=== PATIENT | male | born 1955 | race Caucasian/White ===

== ENCOUNTER → 2021-03-04 09:58 | Outpatient (BNVA) | payer MEDICARE, SELFPAY | PROVIDERS: Family Provider Family Medicine; PCP Family Medicine; Visit Provider Urology | DX: Z12.5 Encounter for screening for malignant neoplasm of prostate (principal); N40.1 Benign prostatic hyperplasia with lower urinary tract symptoms; R31.29 Other microscopic hematuria | CPT/HCPCS: 81003; G0103 ==

== ENCOUNTER → 2021-05-31 11:33 | Outpatient (BNVA) | payer MEDICARE, SELFPAY | PROVIDERS: Family Provider Family Medicine; PCP Family Medicine; Visit Provider Urology | DX: R31.29 Other microscopic hematuria (principal); N40.1 Benign prostatic hyperplasia with lower urinary tract symptoms | CPT/HCPCS: 81003 ==

== ENCOUNTER → 2021-08-11 10:16 | Outpatient (BNVA) | payer MEDICARE, SELFPAY | PROVIDERS: Family Provider Family Medicine; PCP Family Medicine; Visit Provider Urology | DX: N40.1 Benign prostatic hyperplasia with lower urinary tract symptoms (principal); R31.29 Other microscopic hematuria | CPT/HCPCS: 81003; 87086; 88112 ==

== ENCOUNTER 2021-08-30 09:13 | Outpatient (CLI) | payer MEDICARE, SELFPAY ==
--- NOTE | 2021-08-30 10:00 | CT_ITS ---
WS: [id number] CT ABDOMEN PELVIS TECHNIQUE: Noncontrast CT of the abdomen and contrast-enhanced CT of the abdomen and pelvis with joe nal and sagittal reformatted images. CLINICAL INFORMATION: MICROSCOPIC HEMATURIA COMPARISON: None. DLP: 3543.[address] scans at [facility] use at least one of these dose optimization techniques: automated e xposure control; mA and/or kV adjustment per patient size (includes targeted exams where dose is matc hed to clinical indication); or iterative reconstruction. FINDINGS: Normal noncontrast liver. Dystrophic calcifications with posttraumatic sequelae RIGHT hepatic lobe. L roxy bases are well aerated. Mild thickening of the LEFT adrenal gland. Adrenal glands normal. Normal renal parenchymal enhancement. No hydronephrosis. Incidental small bila teral renal cysts. Normal ureteral excretion on the delayed images. No ureteral filling defects. Normal contrast filling of the bladder. Normal corticomedullary and nephrographic phases. Normal GE junction. Fluid distended stomach. Normal pancreatic parenchymal enhancement. Normal portal vein and splenic vein. Celiac and SMA appear normal. Mild vascular calcification. Small abdominal ao rtic aneurysm measuring 3.2 x 2.9 cm in AP or transverse. Sigmoid diverticulosis. No evidence of acute diverticulitis. Enhancing slightly nodular prominent pro state measuring 3.2 x 3.4 CM. Recommend correlation PSA. Mild thickening of the seminal vesicles bila terally. Enlarged lymph nodes in the upper abdomen and along the erickson hepatis. Prominent lymph nodes along the celiac and SMA. Largest lymph nodes measure approximately 1.2 x 1.6 and 1.3 x 2.5 cm in th e erickson hepatis. These are nonspecific. A few slightly prominent retrocrural lymph nodes. Shotty mayra aortic lymph nodes. Sigmoid diverticulosis. No evidence of acute diverticulitis. No evidence of high-grade small or large bowel obstruction. Normal appendix in the RIGHT lower quadrant. Tiny fat-containing umbilical hernia . Fat-containing LEFT inguinal hernia. Prior postoperative changes pedicle screw fixation T10-T12 with chronic compression at T11 with verte broplasty changes. Interbody fusion at these levels. CT/CT abdomen pelvis wo/w [id number] IMPRESSION: 1. Normal bilateral renal parenchymal enhancement. No hydronephrosis. 2. Small bilateral incidental renal cysts. 3. Normal ureteral excretion on the delayed imaging. No suspicious filling def ects. Normal filling of the bladder. 4. Bladder appears normal. 5. Mild prostate enlargement with thickening of the seminal vesicles with slig ht nodularity. Recommend correlation PSA. 6. Enlarged lymph nodes in the upper abdomen and erickson hepatis. Largest lymph nodes are in the erickson hepatis measuring 1.6 x 1.2 cm and 1.3 x 2.5 CM. These a re nonspecific and recommend correlation with history of malignancy and [address] abdomen pelvis follow-up. 7. Slightly prominent lymph nodes along the celiac and SMA. Shotty periaortic lymph nodes. Slightly prominent retrocrural lymph nodes. Enlarged lymph node al lauren the RIGHT costophrenic angle. 8. No pelvic or inguinal lymphadenopathy. 9. Prior postoperative changes pedicle screw fixation with anterior fusion T10 -T12. 10. Mild hepatomegaly diffuse fatty infiltration liver.
[2021-08-30 10:35] LABS: Blood Urea Nitrogen 13 mg/dL (8-23)
[2021-08-30] MEDS: iohexol 350 mg/mL 100 mL Btl IV (10:48)
== END 2021-08-30 09:14 | disposition home or self-care (01) ==
PROVIDERS: PCP Family Medicine; Visit Provider Urology
DX: R31.29 Other microscopic hematuria (principal)
CPT/HCPCS: 74178; 81003; 82565; 84520

== ENCOUNTER → 2022-08-28 12:14 | Outpatient (BNVA) | payer MEDICARE, SELFPAY | PROVIDERS: PCP Family Medicine; Visit Provider Urology | DX: R31.29 Other microscopic hematuria (principal) | CPT/HCPCS: 88112 ==

== ENCOUNTER → 2022-09-12 12:51 | Outpatient (BNVA) | payer OTHER, SELFPAY | PROVIDERS: PCP Family Medicine; Visit Provider Urology | DX: N40.1 Benign prostatic hyperplasia with lower urinary tract symptoms (principal); R31.29 Other microscopic hematuria | CPT/HCPCS: 81003 ==

== ENCOUNTER → 2023-12-26 14:49 | Outpatient (BNVA) | payer OTHER, SELFPAY | PROVIDERS: PCP Family Medicine; Visit Provider Podiatrist Foot & Ankle Surgery | DX: M25.572 Pain in left ankle and joints of left foot (principal); T84.84XA Pain due to internal orthopedic prosthetic devices, implants and grafts, initial encounter; Y79.2 Prosthetic and other implants, materials and accessory orthopedic devices associated with adverse incidents | CPT/HCPCS: 73610 ==

== ENCOUNTER 2024-02-01 07:42 | Day surgery (SDC) | payer MEDICARE, SELFPAY ==
[2024-02-01] VITALS (11 sets, daily range): BP systolic 122–178; BP diastolic 94–100; PULSE 54–94; RESP 16–22; TEMP 36.7–37.5; O2SAT 94–96; BMI 26.6
--- NOTE | 2024-02-01 07:43 | ANES.PREANE2 ---
Pre-Anesthetic Assessment Height/Weight: Height 5 ft 9 in Operation Date: 02/01/24 09:15 Proposed Procedures p Deep hardware removal left ankle(Left) - Garret Yates DPM Was Beta Siva taken within 24 hours: N/A Was Clonidine taken within 24 hours: N/A Social No alcohol and No tobacco Exam alert, oriented x 3, clear to auscultation bilaterally and regular rate & rhythm Airway Submandibular: within normal limits Cervical ROM: within normal limits Mallampati: Class II Dentition: full Anesthetic Plan ASA status: 2 Anesthesia: MAC Other: No prior issues with anesthesia NPO since yesterday Hypertension, on amlodipine, lisinopril?HCTZ, metoprolol Plan for MAC with local via surgeon Medications/Allergies Home Medications Medication Instructions Recorded Confirmed Last Taken Type amlodipine 5 mg tablet 5 mg PO DAILY 02/17/21 02/01/24 01/31/24 History citalopram 40 mg tablet 20 mg PO DAILY 02/17/21 02/01/24 01/31/24 History lisinopril 20 1 tab PO DAILY 02/17/21 02/01/24 01/31/24 History mg-hydrochlorothiazide 25 mg tablet metoprolol tartrate 25 mg tablet 25 mg PO BID 02/17/21 02/01/24 02/01/24 History albuterol sulfate 90 mcg/actuation 2 puff inhalation Q6H PRN Allergy 08/11/21 02/01/24 01/31/24 History aerosol inhaler Symptoms budesonide-formoterol HFA 160 1 puff inhalation DAILY 01/31/24 02/01/24 02/01/24 History mcg-4.5 mcg/actuation aerosol inhaler (Symbicort) entecavir 1 mg tablet 1 mg PO DAILY 01/31/24 02/01/24 02/01/24 History fenofibrate nanocrystallized 145 1 mg PO DAILY 01/31/24 02/01/24 01/31/24 History mg tablet loratadine 10 mg tablet (Claritin) 10 mg PO DAILY 01/31/24 02/01/24 01/31/24 History hydrocodone 10 mg-acetaminophen 1 tab PO Q6H PRN pain 7 days #28 02/01/24 Unknown Rx 325 mg tablet tabs Allergies Allergy/AdvReac Type Severity Reaction Status Date / Time trazodone Allergy itching Verified 12/26/23 14:56 [facility] Anesthesia Medical History BPH loc w urin obs/LUTS Hx of fracture of lower leg Hx of cataract Surgical History Hx of tonsillectomy Hx of abdominal surgery History of back surgery Hx of hand surgery Family History Grandmother Diabetes Father , AT AGE 81 CAD (coronary artery disease) Mother CAD (coronary artery disease) Social History Smoking and tobacco/nicotine status: never used tobacco/nicotine Alcohol intake: never Marital status: Current occupational status: retired Data Anesthesia 02/01/24 08:14 Cardiac Studies: No Data to Display
[2024-02-01] MEDS: sodium chloride 0.9% 1,000 ML 30 ML IV (08:21)
[2024-02-01 08:48] LABS: Anion Gap 15.2 (5-19); Blood Urea Nitrogen 13 mg/dL (8-23); Calcium 8.7 mg/dL (8.5-10.5); Carbon Dioxide 24 mmol/L (22-29); Chloride 102 mmol/L (98-107); Creatinine Clr Calc Pharmacy 53.6277; Glomerular Filtration Rate 50.4 mL/min (90-130); Glucose 105 mg/dL (65-115); Osmolality Calculated 286 mOsm/kg (285-295); Potassium 3.2 mmol/L (3.5-5.1); Sodium 138 mmol/L (136-145)
[2024-02-01] MEDS: ipratropium-albuterol 3 mL Neb INHALATION (09:21)
--- NOTE | 2024-02-01 09:40 | P.HPUD_ITS ---
Surgery/Procedure H&P Update DATE OF PROCEDURE: February 01, 2024 DATE H&P PERFORMED: 12/26/23 H&P UPDATE INFORMATION: I have reviewed H&P completed within last 30 days, I have examined patient prior to procedure, No changes to prior documentation and H&P is in [facility] EMR on date indicated PREOP DIAGNOSIS: Painful hardware left ankle PLANNED PROCEDURE: Operation Date: 02/01/24 09:15 Proposed Procedures p Deep hardware removal left ankle(Left) - Garret Yates DPM
[2024-02-01] MEDS: ceFAZolin 2,000 mg SDV 2000 MG IVP (10:05)
[2024-02-01] MEDS: BUPivacaine 0.5% INJ 30 mL INJECTION (10:23)
[2024-02-01] MEDS: lidocaine 2% INJ 20 mL INJECTION (10:23)
--- NOTE | 2024-02-01 10:30 | PC.NURSE ---
hardware sent to for sterilization. Patient would like hardware back per
--- NOTE | 2024-02-01 10:37 | W.PM.BPON ---
Date of Procedure: 07/13/23 Surgeon: Garret Yates DPM Supervisory Examiner(s): RANJITH Procedure(s) performed: Deep hardware removal left ankle Findings of the procedure(s): Fragmented hardware, second most distal screw fragmented preoperatively Estimated blood loss: 2 mL Specimen(s) removed: 1 total screw removal, 1 partial screw removal Post-operative diagnosis: Painful hardware left ankle
--- NOTE | 2024-02-01 10:38 | P.OP_ITS ---
Operative Report Date of procedure: February 01, 2024 Pre-op diagnosis: Painful orthopaedic hardware T84.84XA Post-op diagnosis: Painful orthopaedic hardware T84.84XA Procedure done: Deep hardware removal left ankle. CPT code 21969 Deep hardware removal left ankle. CPT code 53212 Implants: 4-0 nylon Specimens removed/disposition: 1 screw in total removed, one partial screw moved Pathology: No pathology Surgeon: Garret Yates DPM Electrician Shop: RANJITH Estimated blood loss: 2 mL no tourniquet IV fluids: See intraoperative documentation Urine output: None Complications: None Brief History: X-ray left ankle 3 view shows left ankle mortise being congruent, very mild post traumatic arthrosis of the left tibiotalar joint, prominent screw heads x 2 at medial malleolus 1 screw is broken and. Patient requesting hardware removal I advised against only removing the 2 screws or causing pain and leaving the remaining of the plate and screws to minimize his incision and healing and recovery and maximize benefits. Patient is agreeable. I reviewed at length with the patient, the risks, potential complications, benefits, alternatives, expectations, and typical outcomes associated with the surgery. The risks and potential complications were explained in detail, including but not limited to infection, wound dehiscence or soft tissue complications, bleeding and hematoma, chronic edema, neuritis or nerve damage producing numbness or chronic pain, CRPS, failure to relieve pain or worsening pain, thick / painful / unsightly scar, limited motion / stiffness, malposition, delayed union, malunion, or nonunion, fracture, reaction to implants, anesthetic complications, venous thromboembolism, and deformity recurrence. I discussed the notion of no regrets with the patient as it pertains to complications and outcomes. The patient seemed to understand the nature of the proposed care and required convalescence. They asked appropriate questions, answered to their satisfaction. They are aware no guarantees can be made as to a satisfactory outcome and they understand there may be other possible unforeseen complications or outcomes not listed here that will be treated accordingly if they arise. There were no written or implied guarantees given to the patient. They gave informed consent to proceed. Procedure: Under mild sedation patient was brought to the operating room and remained on the gurney in supine position. A timeout was performed. Anesthesia was then administered by the anesthesia service. Local anesthesia injected by myself consisting of 1:1 mixture 1% lidocaine and 0.5 sent Marcaine plain in a local V- block fashion proximal to the planned operative site left medial ankle. Well- padded pneumatic tourniquet applied to the left high calf. The left lower extremity was scrubbed, prepped and draped utilizing normal aseptic technique. Left foot and ankle were exanguinated with an Esmarch bandage and tourniquet inflated to 250 mmHg. Attention was directed to the left medial ankle where there were 2 prominent screws palpated and tenting skin. Over the most distal screw which was palpable and prominent and tenting skin at the medial ankle, left attention was directed, and #15 blade was utilized to incise skin directly over the prominent hardware with blunt dissection carried down through subcutaneous tissue to the screw head which was directly visualized, the screw was backed out in total from bone and passed from the operative field and the incision was irrigated with copious amounts of sterile skin solution and closed with 4-0 nylon. Attention was then directed more proximally where another prominent screw was palpated and was tenting skin, directly over the screw head a second incision was performed through skin with a #15 blade with blunt dissection carried down directly to the screw head which was then removed the screw was previously fragmented on the shank this was confirmed with preop x-rays. Was able to remove the head and part of the threads and this was passed from the operative field. The incision was irrigated with saline solution and closed with 4-0 nylon. Incision sites were dressed with an OpSite and compressive wrap and tourniquet was deflated with a prompt hyperemic response noted to the distal digits of the left foot. Patient tolerated the procedure and anesthesia well and was transferred to the PACU with vital signs stable and vascular status intact. Following a period of postoperative monitoring be discharged home without home care instructions and scheduled follow-up.
--- NOTE | 2024-02-01 11:29 | ANE.PACU2 ---
Inpatient post-anesthesia follow up: Airway intact: Yes Vital signs: Temperature 98.4 F Pulse Rate 65 Respiratory Rate 18 Blood Pressure 168/94 Pulse Oximetry 94 Oxygen Delivery Me thod Room Air Oxygen Flow Rate Fraction of Inspir ed Oxygen Hydration adequate: Yes Nausea and vomiting: No Pain level: 1 Mental status: Baseline
== END 2024-02-01 11:29 | disposition home or self-care (01) ==
PROVIDERS: Student in an Organized Health Care Education/Training Program; PCP Family Medicine; Visit Provider Podiatrist Foot & Ankle Surgery
PROC: (CPT 20680; principal; 2024-02-01 09:05)
DX: T84.84XA Pain due to internal orthopedic prosthetic devices, implants and grafts, initial encounter (principal); N40.1 Benign prostatic hyperplasia with lower urinary tract symptoms; N13.8 Other obstructive and reflux uropathy
CPT/HCPCS: 20680; 36415; 80048; 94640; J0690; J2704; J3490; J7030

== ENCOUNTER → 2024-02-14 13:56 | Outpatient (BNVA) | payer MEDICARE, SELFPAY | PROVIDERS: PCP Family Medicine; Visit Provider Podiatrist Foot & Ankle Surgery | DX: Z98.890 Other specified postprocedural states (principal) | CPT/HCPCS: 99024 ==

== ENCOUNTER 2024-05-21 04:47 | Inpatient (IN) | payer MEDICARE, SELFPAY ==
[2024-05-21] VITALS (26 sets, daily range): BP systolic 147–213; BP diastolic 79–123; PULSE 61–96; RESP 15–20; TEMP 36.4–37.6; O2SAT 90–96; BMI 26.6
--- NOTE | 2024-05-21 04:51 | XRR_ITS ---
PROCEDURE INFORMATION: Exam: XR Left Hip Exam date and time: 05/21/2024 4:57 AM Age: 69 years old Clinical indication: Injury or trauma; Fall; Fracture of pelvis & hip; Left; Not specified; Neck of femur; Closed fracture; Additional info: Fall, left hip pain. With pelvis TECHNIQUE: Imaging protocol: Radiologic exam of the left hip. Views: 2 or 3 views hip with pelvis when performed. COMPARISON: CT abdomen pelvis wo/w [id number] 08/30/2021 10:33 AM FINDINGS: Bones/joints: Osteopenia. Acute nondisplaced left femoral neck fracture deformity Soft tissues: Unremarkable. XR/XR hip LT 2-3V wo/w pel* [id number] IMPRESSION: Acute nondisplaced fracture deformity of the left femoral neck
--- NOTE | 2024-05-21 04:55 | W.ED.FALL ---
HPI - Fall General: Chief Complaint: Fall Stated Complaint: R hip pain post fall Time Seen by Provider: 05/21/24 04:50 History of Present Illness: 69-year-old man who tripped and fell this evening and was brought to the emergency room by ambulance with complaint of left hip pain. No head injury. No blood thinners. No loss of consciousness. Severe pain with any movement at the hip area. Slight rotation of the leg without significant shortening. Related Data Home Medications Medication Instructions Recorded Confirmed amlodipine 5 mg tablet 5 mg PO DAILY 02/17/21 02/14/24 citalopram 40 mg tablet 20 mg PO DAILY 02/17/21 02/14/24 lisinopril 20 1 tab PO DAILY 02/17/21 02/14/24 mg-hydrochlorothiazide 25 mg tablet metoprolol tartrate 25 mg tablet 25 mg PO BID 02/17/21 02/14/24 albuterol sulfate 90 mcg/actuation 2 puff inhalation Q6H PRN Allergy 08/11/21 02/14/24 aerosol inhaler Symptoms budesonide-formoterol HFA 160 1 puff inhalation DAILY 01/31/24 02/14/24 mcg-4.5 mcg/actuation aerosol inhaler (Symbicort) entecavir 1 mg tablet 1 mg PO DAILY 01/31/24 02/14/24 fenofibrate nanocrystallized 145 1 mg PO DAILY 01/31/24 02/14/24 mg tablet loratadine 10 mg tablet (Claritin) 10 mg PO DAILY 01/31/24 02/14/24 Allergies Allergy/AdvReac Type Severity Reaction Status Date / Time trazodone Allergy itching Verified 05/21/24 04:53 Review of Systems Narrative: Constitutional symptoms: Negative except as documented in HPI. Skin symptoms: Negative except as documented in HPI. Eye symptoms: Negative except as documented in HPI. ENMT symptoms: Negative except as documented in HPI. Respiratory symptoms: Negative except as documented in HPI. Cardiovascular symptoms: Negative except as documented in HPI. Gastrointestinal symptoms: Negative except as documented in HPI. Genitourinary symptoms: Negative except as documented in HPI. Musculoskeletal symptoms: Negative except as documented in HPI. Neurologic symptoms: Negative except as documented in HPI. Psychiatric symptoms: Negative except as documented in HPI. Endocrine symptoms: Negative except as documented in HPI. PFS ED PFSH: Medical History BPH loc w urin obs/LUTS Hx of fracture of lower leg Hx of cataract Surgical History Hx of tonsillectomy Hx of abdominal surgery History of back surgery Hx of hand surgery Family History Grandmother Diabetes Father , AT AGE 81 CAD (coronary artery disease) Mother CAD (coronary artery disease) Social History Smoking and tobacco/nicotine status: never used tobacco/nicotine Alcohol intake: never Marital status: Current occupational status: retired Physical Exam Narrative: EXAM NARRATIVE: General: Alert, no acute distress. Skin: Warm, dry. Head: Normocephalic, atraumatic. Neck: Supple, trachea midline. Eye: Extraocular movements are intact. Ears, nose, mouth and throat: mucosa moist. Cardiovascular: Regular, Normal peripheral perfusion. Respiratory: Lungs are clear to auscultation, respirations are non-labored, breath sounds are equal, Symmetrical chest wall expansion. Gastrointestinal: Soft, Nontender, Non distended Musculoskeletal: Severe pain in left hip with any movement of his left leg. Some mild rotation. No shortening. Neurological: Alert and oriented, No focal neurological deficit observed. Psychiatric: Cooperative, appropriate mood & affect. Course Vital Signs: Vital signs: Vital Signs Temperature 98.4 F 05/21/24 04:48 Pulse Rate 78 05/21/24 06:04 Respiratory Rate 18 05/21/24 06:04 Blood Pressure 173/102 05/21/24 06:04 Pulse Oximetry 90 05/21/24 06:04 Oxygen Delivery Me thod Room Air 05/21/24 04:48 MDM - Fall Medical Decision Making X-ray of left hip and pelvis: Nondisplaced femoral neck fracture. This was reviewed and interpreted by myself the emergency room physician. I also reviewed the radiology report. Consultation: I spoke with Dr. Seay who agrees to admission Consultation placed to Dr. Almendarez. Assessment and plan: Hip fracture ?Presurgical workup was initiated. -I discussed the patient with the hospitalist on-call who is admitting the patient. - Discussed findings and plan with patient. Answered any questions. - All imaging was reviewed and interpreted personally by myself, the ER physician. - Evaluation and treatment of this problem were appropriate in the emergency setting Lab Data 05/21/24 04:56 05/21/24 04:56 Radiology Impressions Hip/Pelvis X-Ray 05/21/24 04:51 IMPRESSION: Acute nondisplaced fracture deformity of the left femoral neck Chest X-Ray 05/21/24 05:02 IMPRESSION: Hyperinflated lungs. No acute process Pelvis CT 05/21/24 05:02 IMPRESSION: Acute nondisplaced left femoral neck fracture deformity Laboratory Results WBC 17.51 10^3/uL (3.29-11.43) H 05/21/24 04:56 RBC 6.50 10^6/uL (3.85-5.65) H 05/21/24 04:56 Hgb 18.80 g/dL (11.27-16.99) H 05/21/24 04:56 Hct 56.9 % (37-53) H 05/21/24 04:56 MCV 87.5 fl (82-101) 05/21/24 04:56 MCH 28.9 pg (27-33) 05/21/24 04:56 MCHC 33.0 g/dL (30-55) 05/21/24 04:56 RDW 13.5 % (12.1-15.1) 05/21/24 04:56 Plt Count 313 10^3/cmm (157-399) 05/21/24 04:56 MPV 9.9 fL (7.4-10.4) 05/21/24 04:56 Neut % (Auto) 86.7 % 05/21/24 04:56 Lymph % (Auto) 6.2 % 05/21/24 04:56 [place] % (Auto) 5.0 % 05/21/24 04:56 Eos % (Auto) 0.6 % 05/21/24 04:56 Baso % (Auto) 0.6 % 05/21/24 04:56 Neut # (Auto) 15.18 10^3/uL (1.8-7.7) H 05/21/24 04:56 Lymph # (Auto) 1.1 10^3/uL (0.8-4.8) 05/21/24 04:56 [place] # (Auto) 0.9 10^3/uL (0.2-0.9) 05/21/24 04:56 Eos # (Auto) 0.1 10^3/uL (0.0-0.8) 05/21/24 04:56 Baso # (Auto) 0.1 10^3/uL (0.0-0.1) 05/21/24 04:56 Nucleated RBC % (auto) 0 % 05/21/24 04:56 Nucleated RBCs # 0.0 /100WBC 05/21/24 04:56 PT 12.10 SECONDS (12.1-14.9) 05/21/24 04:56 INR 0.84 (0.8-1.2) 05/21/24 04:56 APTT 27.5 SECONDS (23.9-36.7) 05/21/24 04:56 Sodium 137 mmol/L (136-145) 05/21/24 04:56 Potassium 3.3 mmol/L (3.5-5.1) L 05/21/24 04:56 Chloride 101 mmol/L (98-107) 05/21/24 04:56 Carbon Dioxide 23 mmol/L (22-29) 05/21/24 04:56 Anion Gap 16.3 (5-19) 05/21/24 04:56 BUN 15 mg/dL (8-23) 05/21/24 04:56 Creatinine 1.5 mg/dL (0.7-1.2) H 05/21/24 04:56 GFR Calculation 46.4 mL/min (90-130) L 05/21/24 04:56 Glucose 129 mg/dL (65-115) H 05/21/24 04:56 Calculated Osmolality 287 mOsm/kg (285-295) 05/21/24 04:56 Calcium 9.9 mg/dL (8.5-10.5) 05/21/24 04:56 Total Bilirubin 0.3 mg/dL (0.15-1.2) 05/21/24 04:56 AST 19 U/L (0-40) 05/21/24 04:56 ALT 16 U/L (0-41) 05/21/24 04:56 Alkaline Phosphatase 75 U/L (40-130) 05/21/24 04:56 Total Protein 6.9 g/dL (6.6-8.7) 05/21/24 04:56 Albumin 3.2 g/dL (3.5-5.2) L 05/21/24 04:56 Globulin 3.7 g/dL (1.3-4.6) 05/21/24 04:56 All radiology interpretation(s) finalized by discharge Discharge Plan Discharge Patient Disposition: Admitted As Inpatient Admit Provider: Kendra Seay Clinical Impression: Closed hip fracture Condition: Stable Coding Level of Care Code ED Barrel Endshaker Adjuster for Thu Cadena
[2024-05-21] MEDS: HYDROmorphone 1 mg/mL INJ 1 mL IVP (05:01)
--- NOTE | 2024-05-21 05:02 | XRR_ITS ---
PROCEDURE INFORMATION: Exam: XR Chest Exam date and time: 05/21/2024 5:06 AM Age: 69 years old Clinical indication: Injury or trauma; Fall; Blunt trauma (contusions or hematomas); Additional info: Surgical workup TECHNIQUE: Imaging protocol: Radiologic exam of the chest. Views: 1 view. COMPARISON: CR XR chest 2V* [id number] 12/11/2017 10:40 AM FINDINGS: Lungs: Hyperinflated lungs. No infiltrate Pleural spaces: Unremarkable. No pleural effusion. No pneumothorax. Heart/Mediastinum: Unremarkable. No cardiomegaly. Bones/joints: Unremarkable. XR/XR chest 1V portable [id number] IMPRESSION: Hyperinflated lungs. No acute process
--- NOTE | 2024-05-21 05:02 | CTR_ITS ---
PROCEDURE INFORMATION: Exam: CT Pelvis Without Contrast, Skeleton Exam date and time: 05/21/2024 5:14 AM Age: 69 years old Clinical indication: Injury or trauma; Additional info: Traumatic pelvic pain TECHNIQUE: Imaging protocol: Computed tomography of the pelvis without contrast. Exam focused on the skeleton. Radiation optimization: All CT scans at this facility use at least one of these dose optimization techniques: automated exposure control; mA and/or kV adjustment per patient size (includes targeted exams where dose is matched to clinical indication); or iterative reconstruction. COMPARISON: CT abdomen pelvis wo/w [id number] 08/30/2021 10:33 AM RADIATION DOSE METRICS: Total DLP (mGy-cm): 413.63 FINDINGS: Bones/joints: Healed left inferior pubic ramus fracture deformity. Acute nondisplaced left femoral neck fracture deformity. Soft tissues: Unremarkable. CT/CT pelvis wo con [id number] IMPRESSION: Acute nondisplaced left femoral neck fracture deformity
--- NOTE | 2024-05-21 05:34 | ECG_ITS ---
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 Measurements Intervals [place] Rate: 77 P: 72 WV: 210 QRS: -63 QRSD: 93 T: 73 QT: 405 QTc: 460 Interpretive Statements SINUS RHYTHM WITH FIRST DEGREE AV BLOCK INCOMPLETE RIGHT BUNDLE BRANCH BLOCK [90+ ms QRS DURATION, TERMINAL R IN V1/V2, 40+ ms S IN I/aVL/V4/V5/V6] LEFT ANTERIOR FASCICULAR BLOCK [QRS AXIS <= -45, QR IN I, RS IN II] SEPTAL MYOCARDIAL INFARCTION , PROBABLY OLD [40+ ms Q WAVE IN V1/V2] Compared to ECG 02/07/2017 01:48:51 First degree AV block now present Incomplete right bundle-branch block now present Left anterior fascicular block now present Myocardial infarct finding now present T-wave abnormality no longer present Electronically Signed On 05-24-2024 23:14:45 WATER PROOFER by Kristofer Forrest M.D. [email or web address]
[2024-05-21 05:40] LABS: Basophils # 0.1 10^3/uL (0.0-0.1); Basophils % 0.6 %; Eosinophils # 0.1 10^3/uL (0.0-0.8); Eosinophils % 0.6 %; Hematocrit 56.9 % (37-53); Lymphocytes # 1.1 10^3/uL (0.8-4.8); Lymphocytes % 6.2 %; Mean Corpuscular Hemoglobin 28.9 pg (27-33); Mean Corpuscular Volume 87.5 fl (82-101); Mean Platelet Volume 9.9 fL (7.4-10.4); Monocytes # 0.9 10^3/uL (0.2-0.9); Neutrophils # 15.18 10^3/uL (1.8-7.7); Neutrophils % 86.7 %; Nucleated Red Blood Cells % 0 %; Platelet Count 313 10^3/cmm (157-399); Red Cell Distribution Width 13.5 % (12.1-15.1); White Blood Count 17.51 10^3/uL (3.29-11.43)
[2024-05-21 05:47] LABS: INR 0.84 (0.8-1.2); Partial Thromboplastin Time 27.5 SECONDS (23.9-36.7)
[2024-05-21 05:51] LABS: Alanine Aminotransferase 16 U/L (0-41); Albumin Level 3.2 g/dL (3.5-5.2); Alkaline Phosphatase 75 U/L (40-130); Anion Gap 16.3 (5-19); Aspartate Amino Transferase 19 U/L (0-40); Blood Urea Nitrogen 15 mg/dL (8-23); Calcium 9.9 mg/dL (8.5-10.5); Carbon Dioxide 23 mmol/L (22-29); Chloride 101 mmol/L (98-107); Creatinine Clr Calc Pharmacy 49.3574; Globulin 3.7 g/dL (1.3-4.6); Glomerular Filtration Rate 46.4 mL/min (90-130); Glucose 129 mg/dL (65-115); Osmolality Calculated 287 mOsm/kg (285-295); Potassium 3.3 mmol/L (3.5-5.1); Sodium 137 mmol/L (136-145); Total Bilirubin 0.3 mg/dL (0.15-1.2); Total Protein 6.9 g/dL (6.6-8.7)
--- NOTE | 2024-05-21 07:42 | P.CONIM_ITS ---
<Statement entered by Prasanth Almendarez DO - 05/21/24 15:08> Reviewed and agree with PAs assessment and plan. Patient was seen and examined by myself in the preoperative holding area. Consent was reviewed and signed with the patient. At this point time he is a 69-year-old gentleman who lives at home by himself and ambulates without a walker at baseline and no previous hip pain. He had a mechanical fall that fell onto his left hip from the emergency department found to have a displaced left hip femoral neck fracture. Initial imaging possible nondisplaced however on CT scan patient has noticeable anterior translation and displacement as well as a high Powells angle and displacement bolus equating to a feeling better benefit from a left hip hemiarthroplasty versus a closed reduction and cannulated screw fixation we talked about this in detail we talked about the ins and outs procedure the risk benefits complication alternatives surgery. Risk of surge include not limited to make a better make it worse injury to nerves vessels or tendons, infection, leg length discrepancies, instability, periprosthetic fracture. Understanding risks with surgery patient lacks proceed with surgical intervention all questions have been answered at this time I feel patient will benefit from left hip hemiarthroplasty for earlier mobilization as well as pain control. Patient understands agrees current plan. Questions answered. We will take him back to the OR this afternoon. All questions answered. Prasanth Almendarez DO Orthopedic surgery Documented by User: JESSA Oglesby 05/21/24 08:32 Providers/Reason For Consult 2 Consulting Physician/Specialty*: Dr. Erickson DO/orthopedic surgeon Reason for Consult*: Left hip fracture Requesting Physician: Dr. Kimberly MD Attending Physician: Kendra Seay MD History of Present Illness History of Present Illness Brianne Holm is a 69 year old male that was brought into the emergency department for left hip pain. Patient had a fall at home where he tripped over a dog bowl. He denies any loss of consciousness. After fall patient said he had left hip pain and was unable to weight-bear or move his left leg due to pain. Patient had no hip pain before fall and was having no other symptoms before his fall. Patient lives home alone and was able to ambulate without any assistive device before fall. Patient denies being on any blood thinners. Review of Systems 2 Const: Denies: fever(s) or chills Card: Denies: chest pain or palpitations Resp: Denies: dyspnea, productive cough or non-productive cough GI: Denies: abdominal pain, nausea or vomiting : Denies: dysuria Musc: Reports: extremity pain (Left hip), joint pain (Left hip) and limited range of motion (Left hip) Skin/Breast: Denies: rash Medications/Allergies Home Medications Medication Instructions Recorded Confirmed Last Taken Type amlodipine 5 mg tablet 5 mg PO QPM 02/17/21 05/21/24 05/20/24 History citalopram 40 mg tablet 40 mg PO DAILY 02/17/21 05/21/24 05/20/24 History metoprolol tartrate 25 mg tablet 25 mg PO BID 02/17/21 05/21/24 05/20/24 History albuterol sulfate 90 mcg/actuation 2 puff inhalation Q6H PRN Allergy 08/11/21 05/21/24 01/31/24 History aerosol inhaler Symptoms budesonide-formoterol HFA 160 1 puff inhalation DAILY 01/31/24 05/21/24 02/01/24 History mcg-4.5 mcg/actuation aerosol inhaler (Symbicort) entecavir 1 mg tablet 1 mg PO DAILY 01/31/24 05/21/24 05/20/24 History fenofibrate nanocrystallized 145 1 mg PO DAILY 01/31/24 05/21/24 05/20/24 History mg tablet loratadine 10 mg tablet (Claritin) 10 mg PO DAILY 01/31/24 05/21/24 05/20/24 History budesonide 160 mcg-glycopyr 9 2 inh inhalation BID 05/21/24 05/21/24 05/20/24 History mcg-formot 4.8 mcg/actuation HFA inhaler (Breztri Aerosphere) chlorthalidone 25 mg tablet 12.5 mg PO DAILY 05/21/24 05/21/24 Unknown History hydrochlorothiazide 12.5 mg tablet 12.5 mg PO DAILY 05/21/24 05/21/24 05/20/24 History lisinopril 40 mg tablet 40 mg PO DAILY 05/21/24 05/21/24 05/20/24 History Allergies Allergy/AdvReac Type Severity Reaction Status Date / Time trazodone Allergy itching Verified 05/21/24 04:53 PFSH Acute 2 PFSH: Medical History Hepatitis B Hematuria Depression History of heart attack HTN (hypertension) Elevated cholesterol BPH loc w urin obs/LUTS Hx of fracture of lower leg Hx of cataract Surgical History Hx of tonsillectomy Hx of abdominal surgery History of back surgery Hx of hand surgery Family History Grandmother Diabetes Father , AT AGE 81 CAD (coronary artery disease) Mother CAD (coronary artery disease) Social History Smoking and tobacco/nicotine status: current every day tobacco/nicotine user Alcohol intake: former Substance/Drug Use: former Marital status: Current occupational status: retired Vitals/I&O/Wt Last Vital Signs Temp 97.9 F 05/21/24 06:30 Pulse 78 05/21/24 06:30 Resp 15 05/21/24 06:30 BP 171/99 05/21/24 06:30 Pulse Ox 94 05/21/24 06:30 O2 Del Method Room Air 05/21/24 06:30 05/20/24 05/21/24 05/21/24 22:59 06:59 14:59 Intake Total 0 / 0 Balance 0 / 0 Weight last 48 hrs Weight 180 lb Physical Exam 2 Const: COMMON NORMALS: no acute distress and alert Resp: COMMON NORMALS: normal respiratory effort and No retractions Cardio: COMMON NORMALS: Peripheral pulses 2+ throughout PERIPHERAL PULSES: Peripheral pulses 2+ throughout Extremity: NARRATIVE EXTREMITY EXAM: (Left) lower extremity-leg is not short ened and not externally rotated. Positive logroll test. Tenderness to palpation right hip. compartments are soft and compressible. Patient can Wiggle toes. Toes are warm and well- perfused. Pedal pulse 2+. Secondary assessment of other extremities. Upper extremities-no visible injuries, abrasions. Full range of motion in shoulders, elbows and wrist. no tenderness to palpation of shoulders or wrist. (Right) lower extremity-no visible injur y or trauma seen. Full range of motion in hip. Negative logroll test. Patient able to perform straight leg raise and can dorsiflex plantarflex foot. Pedal pulse 2+ and patient can wiggle toes. Neuro: SENSORIUM/ORIENTATION: Yes alert Skin: GENERAL SKIN EXAM: dry skin Data 05/21/24 04:56 05/21/24 04:56 Xray Ortho: Radiologist's impression: Patient: Brianne Holm Unit #: [id number] : 1955 Age/Sex: 69 / M ADM Date: 05/21/24 Loc: ER Room/Bed: Attending Dr: Ordering Provider/Ordering MD: Chyna Harris MD Date of Service: 05/21/24 Procedure(s): XR hip LT 2-3V wo/w pel* [id number] Accession Number(s): [id number] Report Number: [id number] PROCEDURE INFORMATION: Exam: XR Left Hip Exam date and time: 05/21/2024 4:57 AM Age: 69 years old Clinical indication: Injury or trauma; Fall; Fracture of pelvis & hip; Left; Not specified; Neck of femur; Closed fracture; Additional info: Fall, left hip pain. With pelvis TECHNIQUE: Imaging protocol: Radiologic exam of the left hip. Views: 2 or 3 views hip with pelvis when performed. COMPARISON: CT abdomen pelvis wo/w [id number] 08/30/2021 10:33 AM FINDINGS: Bones/joints: Osteopenia. Acute nondisplaced left femoral neck fracture deformity Soft tissues: Unremarkable. XR/XR hip LT 2-3V wo/w pel* [id number] IMPRESSION: Acute nondisplaced fracture deformity of the left femoral neck Dictated By: Eda Sumner DO A&P Assessment and plan (1) Closed hip fracture: Plan Plan: -Imaging and Labs reviewed -Hospitalist on board for medical management. -VTE prophylaxis -Nonweightbearing on left leg -Pain control -N.p.o. -Surgery later today for a left hip CRPP versus left hip hemiarthroplasty. Coding Level of Care Code Acute Code for Chg Fwd Diagnoses Closed hip fracture S72.009A Time Spent (min) 45 Documented by User: Prasanth Almendarez DO 05/21/24 15:11 Medications/Allergies Home Medications Medication Instructions Recorded Confirmed Last Taken Type amlodipine 5 mg tablet 5 mg PO QPM 02/17/21 05/21/24 05/20/24 History citalopram 40 mg tablet 40 mg PO DAILY 02/17/21 05/21/24 05/20/24 History metoprolol tartrate 25 mg tablet 25 mg PO BID 02/17/21 05/21/24 05/20/24 History albuterol sulfate 90 mcg/actuation 2 puff inhalation Q6H PRN Allergy 08/11/21 05/21/24 01/31/24 History aerosol inhaler Symptoms budesonide-formoterol HFA 160 1 puff inhalation DAILY 01/31/24 05/21/24 02/01/24 History mcg-4.5 mcg/actuation aerosol inhaler (Symbicort) entecavir 1 mg tablet 1 mg PO DAILY 01/31/24 05/21/24 05/20/24 History fenofibrate nanocrystallized 145 1 mg PO DAILY 01/31/24 05/21/24 05/20/24 History mg tablet loratadine 10 mg tablet (Claritin) 10 mg PO DAILY 01/31/24 05/21/24 05/20/24 History budesonide 160 mcg-glycopyr 9 2 inh inhalation BID 05/21/24 05/21/24 05/20/24 History mcg-formot 4.8 mcg/actuation HFA inhaler (Breztri Aerosphere) chlorthalidone 25 mg tablet 12.5 mg PO DAILY 05/21/24 05/21/24 Unknown History hydrochlorothiazide 12.5 mg tablet 12.5 mg PO DAILY 05/21/24 05/21/24 05/20/24 History lisinopril 40 mg tablet 40 mg PO DAILY 05/21/24 05/21/24 05/20/24 History Allergies Allergy/AdvReac Type Severity Reaction Status Date / Time trazodone Allergy itching Verified 05/21/24 04:53 PFSH Acute 2 PFSH: Medical History Hepatitis B Hematuria Depression History of heart attack HTN (hypertension) Elevated cholesterol BPH loc w urin obs/LUTS Hx of fracture of lower leg Hx of cataract Surgical History Hx of tonsillectomy Hx of abdominal surgery History of back surgery Hx of hand surgery Family History Grandmother Diabetes Father , AT AGE 81 CAD (coronary artery disease) Mother CAD (coronary artery disease) Social History Smoking and tobacco/nicotine status: current every day tobacco/nicotine user Alcohol intake: former Substance/Drug Use: former Marital status: Current occupational status: retired Physical Exam 2 Extremity: NARRATIVE EXTREMITY EXAM: (Left) lower extremity-leg is not short ened and not externally rotated. Positive logroll test. Tenderness to palpation left hip. compartments are soft and compressible. Unable to perform [place] secondary to pain, patient can Wiggle toes. Toes are warm and well-perfused. Pedal pulse 2+. Secondary assessment of other extremities. Upper extremities-no visible injuries, abrasions. Full range of motion in shoulders, elbows and wrist. no tenderness to palpation of shoulders or wrist. (Right) lower extremity-no visible injur y or trauma seen. Full range of motion in hip. Negative logroll test. Patient able to perform straight leg raise and can dorsiflex plantarflex foot. Pedal pulse 2+ and patient can wiggle toes. Data 05/21/24 04:56 05/21/24 04:[address]: Radiologist's impression: Ordering Provider/Ordering MD: Chyna Harris MD Date of Service: 05/21/24 Procedure(s): CT pelvis con [id number] Accession Number(s): [id number] Report Number: [id number] PROCEDURE INFORMATION: Exam: CT Pelvis Without Contrast, Skeleton Exam date and time: 05/21/2024 5:14 AM Age: 69 years old Clinical indication: Injury or trauma; Additional info: Traumatic pelvic pain TECHNIQUE: Imaging protocol: Computed tomography of the pelvis without contrast. Exam focused on the skeleton. Radiation optimization: All CT scans at this facility use at least one of these dose optimization techniques: automated exposure control; mA and/or kV adjustment per patient size (includes targeted exams where dose is matched to clinical indication); or iterative reconstruction. COMPARISON: CT abdomen pelvis wo/w [id number] 08/30/2021 10:33 AM RADIATION DOSE METRICS: Total DLP (mGy-cm): 413.63 FINDINGS: Bones/joints: Healed left inferior pubic ramus fracture deformity. Acute nondisplaced left femoral neck fracture deformity. Soft tissues: Unremarkable. CT/CT pelvis wo con [id number] IMPRESSION: Acute nondisplaced left femoral neck fracture deformity A&P Assessment and plan (1) Closed hip fracture: Plan Plan: -Imaging and Labs reviewed -Hospitalist on board for medical management. -VTE prophylaxis -Nonweightbearing on left leg -Pain control -N.p.o. -Surgery later today for a left hip CRPP versus left hip hemiarthroplasty. Orthopedic attending addendum: Plan to proceed to the OR for left hip hemiarthroplasty today. All questions answered at this time. Please refer to addendum at the top of the note for detailed discussion. Coding Level of Care Code Acute Code for Chg Fwd Diagnoses Closed hip fracture S72.009A Time Spent (min) 45
--- NOTE | 2024-05-21 08:45 | P.HP_ITS ---
Providers/Chief Complaint 2 Admitting Physician: Kendra Seay MD Chief Complaint: R hip pain post fall History of Present Illness Pleasant 69-year-old gentleman recovering alcoholic and with history of substance use disorder, has been sober for 6 years, on treatment for hepatitis B over the last year following with infectious disease doctor in [place], with history of COPD, current smoker, came into ER due to left hip pain after tripping over his dog and falling. In ER he was found to have a nondisplaced left femoral neck fracture. He denies any other recent acute illness. He denies history of heart attack or stroke, history of diabetes, sleep apnea. He states at baseline he has been able to walk on flat ground unrestricted. He does use inhalers for COPD but has not been needing any oxygen. Review of Systems 2 Const: Denies: fever(s), chills, body aches or malaise ENMT: Denies: throat pain Card: Denies: chest pain, edema, pre-syncope or dyspnea on exertion Resp: Denies: dyspnea, productive cough, change in phlegm color or hemoptysis GI: Denies: abdominal pain, nausea, vomiting, diarrhea, constipation, hematochezia or melena : Denies: flank pain, difficulty urinating, urinary frequency or hematuria Musc: Reports: extremity pain; Denies: back pain, joint swelling or joint redness Skin/Breast: Denies: rash or new lesions Neuro: Denies: headache(s) Endo: Denies: polyuria or polydipsia Medications/Allergies Home Medications Medication Instructions Recorded Confirmed Last Taken Type amlodipine 5 mg tablet 5 mg PO QPM 02/17/21 05/21/24 05/20/24 History citalopram 40 mg tablet 40 mg PO DAILY 02/17/21 05/21/24 05/20/24 History metoprolol tartrate 25 mg tablet 25 mg PO BID 02/17/21 05/21/24 05/20/24 History albuterol sulfate 90 mcg/actuation 2 puff inhalation Q6H PRN Allergy 08/11/21 05/21/24 01/31/24 History aerosol inhaler Symptoms budesonide-formoterol HFA 160 1 puff inhalation DAILY 01/31/24 05/21/24 02/01/24 History mcg-4.5 mcg/actuation aerosol inhaler (Symbicort) entecavir 1 mg tablet 1 mg PO DAILY 01/31/24 05/21/24 05/20/24 History fenofibrate nanocrystallized 145 1 mg PO DAILY 01/31/24 05/21/24 05/20/24 History mg tablet loratadine 10 mg tablet (Claritin) 10 mg PO DAILY 01/31/24 05/21/24 05/20/24 History budesonide 160 mcg-glycopyr 9 2 inh inhalation BID 05/21/24 05/21/24 05/20/24 History mcg-formot 4.8 mcg/actuation HFA inhaler (Breztri Aerosphere) chlorthalidone 25 mg tablet 12.5 mg PO DAILY 05/21/24 05/21/24 Unknown History hydrochlorothiazide 12.5 mg tablet 12.5 mg PO DAILY 05/21/24 05/21/24 05/20/24 History lisinopril 40 mg tablet 40 mg PO DAILY 05/21/24 05/21/24 05/20/24 History Allergies Allergy/AdvReac Type Severity Reaction Status Date / Time trazodone Allergy itching Verified 05/21/24 04:53 PFSH Acute 2 PFSH: Medical History Hepatitis B Hematuria Depression History of heart attack HTN (hypertension) Elevated cholesterol BPH loc w urin obs/LUTS Hx of fracture of lower leg Hx of cataract Surgical History Hx of tonsillectomy Hx of abdominal surgery History of back surgery Hx of hand surgery Family History Grandmother Diabetes Father , AT AGE 81 CAD (coronary artery disease) Mother CAD (coronary artery disease) Social History Smoking and tobacco/nicotine status: current every day tobacco/nicotine user Alcohol intake: former Substance/Drug Use: former Marital status: Current occupational status: retired Vitals/I&O/Wt Last Vital Signs Temp 98.1 F 05/21/24 07:52 Pulse 73 05/21/24 07:52 Resp 17 05/21/24 07:52 BP 185/96 05/21/24 07:52 Pulse Ox 95 05/21/24 07:52 O2 Del Method Room Air 05/21/24 07:52 05/20/24 05/21/24 05/21/24 22:59 06:59 14:59 Intake Total 0 / 0 Output Total 300 / 300 Balance 0 / 0 -300 / -300 Weight last 48 hrs Weight 81.221 kg Weight 81.647 kg Physical Exam 2 Const: COMMON NORMALS: patient oriented x3 and alert GENERAL APPEARANCE: c ooperative ORIENTATION/CONSCIOUSNESS: Yes awake OTHER: Mildly slurred speech. Dry mouth. HENMT: COMMON NORMALS: oropharynx normal Neck/C-Spine: COMMON NORMALS: no JVD Resp: COMMON NORMALS: normal respiratory effort and clear to auscultation bilaterally AUSCULTATION: clear to auscultation bilaterally Cardio: COMMON NORMALS: no JVD, regular rhythm, S1 normal heart sound present, S2 normal heart sound present and No murmurs present (Cardio) RHYTHM: regular rhythm HEART SOUNDS: S1 normal heart sound present and S2 normal heart sound present GI: COMMON NORMALS: Normal to inspection, nondistended, normoactive bowel sounds present, Soft to palpation and non-tender PALPATION: Yes Soft to palpation Extremity: COMMON NORMALS: no joint enlargement and no pedal edema Neuro: COMMON NORMALS: patient oriented x3 and moves all extremities S ENSORIUM/ORIENTATION: Yes alert Skin: COMMON NORMALS: no rashes or lesions noted GENERAL SKIN EXAM: no rashes or lesions noted Data 05/21/24 04:56 05/21/24 04:56 A&P Assessment and plan (1) Fracture of femoral neck, left, closed: Came in after a fall after tripping on his dog. Experiencing left hip pain, found to have nondisplaced left femoral neck fracture. Denies other recent illness. Reviewed vitals, CBC, INR, PTT, CMP, pelvis CT, chest x-ray, hip x- ray, EKG, on my interpretation complete RBBB, LAFB,Q wave is reported in V1, but there is no Q wave, possible Q wave in V2. Pending official read. He has not had any chest pain or pressure. Denies history of [place] or stroke. Does have underlying COPD, not normally on oxygen. Denies history of EWELINA. Reports that has been able to maintain unimpeded activity, ambulation on flat surface without having to stop to catch her breath, able to go up and down stairs without issue prior to the fall. Does appear to have CKD as well, creatinine 1.5, similar to prior 1.4 back in January. History of EtOH use disorder, substance use disorder, hepatitis B has been on treatment over the last year, has been in remission over the last 6 years, denies any relapse. He is a chronic smoker but states has been trying to cut down. Discussed with him resolution with surgery, anesthesia secondary to his underlying medical conditions. He wants to pursue repair of left hip fracture to allow him to mobilize and resume his prior lifestyle. He is made n.p.o. by orthopedics as per their prior discussion, tentative plans for surgical intervention this afternoon. Blood pressure with some elevation up to a 185/96. Will hold off lisinopril, HCTZ anticipation of surgical intervention. Monitor blood pressures. Pain control. Acetaminophen, hydromorphone as needed. Would avoid NSAIDs if possible with suspected CKD. Minimally slurred speech, although gives appropriate answers, history. However, his mouth is also dry. Assess UDS, EtOH level. SCD for now for VTE prophylaxis pending surgical transfer, subsequently anticoagulation as per orthopedics. (2) Leukocytosis: Leukocytosis of 17.5, with without symptomatic features of any infection going on. Will obtain a UA. Reviewed chest x-ray. He denies any systemic or other symptoms of infection. Possibly stress related secondary to fall, hip fracture. Plan Recovering alcoholic and with history of substance use disorder, has been sober for 6 years, On treatment for hepatitis B over the last year following with infectious disease doctor in [place], COPD: Not currently in exacerbation. Uses inhalers at home. Will provide inhaled budesonide, DuoNebs. Current smoker: Encouraged cessation. He has been trying to cut down. Discussed with him nicotine replacement with nicotine patch, nicotine lozenges. Attestations 2 Medical Necessity Statement*: Place in observation for additional assessment and management of left hip nondisplaced fracture. and High MDM includes amount and/or complexity of data reviewed/ordered [ previous or external records, resulted lab(s)/test(s), ordered lab(s)/test(s), independent test interpretation and other healthcare professional discussion] and described risk of complication, morbidity or mortality of management as documented Diagnoses Fracture of femoral neck, left, closed S72.002A Leukocytosis D72.829
[2024-05-21] MEDS: ketorolac 30 mg/mL INJ IVP (09:07)
[2024-05-21 09:46] LABS: Alcohol Level < 10 mg/dL (0-10)
[2024-05-21 10:35] LABS: Bilirubin Urine Negative (Negative); Blood Urine 1+ (Negative); Glucose Urine UA Trace (Normal); Ketones Urine Negative (Negative); Leukocyte Esterase Urine Negative (Negative); Nitrate Urine Negative (Negative); Protein Urine 4+ (Negative); Specific Gravity, Urine 1.021 (1.005-1.030); Urine Appearance Clear (CLEAR); Urine Color Yellow (Yellow); Urobilinogen Urine 0.2 mg/dL (Negative); pH Urine 6.5 (5-7)
[2024-05-21] MEDS: HYDROmorphone 1 mg/mL INJ 1 mL 0.2 MG IVP (10:37)
[2024-05-21] MEDS: nicotine 21 mg Patch 1 PATCH TRANSDERMA (10:40)
[2024-05-21 10:42] LABS: Amphetamines Screen Urine Negative (Negative); Barbiturates Screen Urine Negative (Negative); Benzodiazepines Screen Urine Negative (Negative); Cocaine Screen Urine Negative (Negative); Opiate Screen Urine Positive (Negative); PCP Screen Urine Negative (Negative); THC Screen Urine Positive (Negative)
[2024-05-21 10:44] LABS: Add Urine Microscopic? YES; Bacteria Urine None Seen /hpf; Hyaline Casts Urine 6.17 /lpf; RBC Urine 0-2 /hpf (0-2); Squamous Epithelial Cell Urine 0-5 /hpf (0-5); WBC Urine 0-5 /hpf (0-5)
[2024-05-21 11:09] LABS: SARS Covid-2 Antigen negative (Negative)
[2024-05-21] MEDS: albuterol 2.5 mg/3 mL Neb INHALATION (14:01)
[2024-05-21] MEDS: acetaminophen 1,000 MG/100 ML PIGGYBACK 400 MG IV (14:14)
--- NOTE | 2024-05-21 14:15 | ANES.PREANE2 ---
Pre-Anesthetic Assessment Height/Weight: Height 5 ft 9 in Weight 179 lb 1 oz Temp Pulse Resp BP Pulse Ox O2 Del Method 99.7 F H 78 17 187/98 96 Room Air 05/21/24 13:53 05/21/24 13:59 05/21/24 13:59 05/21/24 13:53 05/21/24 13:59 05/21/24 13:59 Preop Diagnosis: Left hip femoral neck fracture Operation Date: 05/21/24 14:50 Proposed Procedures p Hemiarthroplasty Hip(Left) - Prasanth Hardee, DO Was Beta Siva taken within 24 hours: Yes Was Clonidine taken within 24 hours: N/A Social No alcohol and No tobacco Exam alert, oriented x 3, clear to auscultation bilaterally and regular rate & rhythm Anesthetic Plan ASA status: 3 Anesthesia: General Other: No prior issues with anesthesia NPO since History of hypertension on amlodipine lisinopril and HCTZ, preop BP 187/98 Labs reviewed, leukocytosis noted. Hemoglobin 18.8. K+ 3.3, creatinine 1.5 EKG showing sinus rhythm with first-degree AV block and RBBB Plan for general anesthesia Medications/Allergies Home Medications Medication Instructions Recorded Confirmed Last Taken Type amlodipine 5 mg tablet 5 mg PO QPM 02/17/21 05/21/24 05/20/24 History citalopram 40 mg tablet 40 mg PO DAILY 02/17/21 05/21/24 05/20/24 History metoprolol tartrate 25 mg tablet 25 mg PO BID 02/17/21 05/21/24 05/20/24 History albuterol sulfate 90 mcg/actuation 2 puff inhalation Q6H PRN Allergy 08/11/21 05/21/24 01/31/24 History aerosol inhaler Symptoms budesonide-formoterol HFA 160 1 puff inhalation DAILY 01/31/24 05/21/24 02/01/24 History mcg-4.5 mcg/actuation aerosol inhaler (Symbicort) entecavir 1 mg tablet 1 mg PO DAILY 01/31/24 05/21/24 05/20/24 History fenofibrate nanocrystallized 145 1 mg PO DAILY 01/31/24 05/21/24 05/20/24 History mg tablet loratadine 10 mg tablet (Claritin) 10 mg PO DAILY 10/07/2105/21/24 05/20/24 History budesonide 160 mcg-glycopyr 9 2 inh inhalation BID 05/21/24 05/21/24 05/20/24 History mcg-formot 4.8 mcg/actuation HFA inhaler (Breztri Aerosphere) chlorthalidone 25 mg tablet 12.5 mg PO DAILY 05/21/24 05/21/24 Unknown History hydrochlorothiazide 12.5 mg tablet 12.5 mg PO DAILY 05/21/24 05/21/24 05/20/24 History lisinopril 40 mg tablet 40 mg PO DAILY 05/21/24 05/21/24 05/20/24 History Allergies Allergy/AdvReac Type Severity Reaction Status Date / Time trazodone Allergy itching Verified 05/21/24 04:53 Current Medications Generic Name Dose Route Start Last Admin Trade Name Freq PRN Reason Stop Dose Admin Albuterol/Ipratropium 3 ml 05/21/24 14:00 05/21/24 13:35 Ipratropium-Albuterol 3 Ml Neb INHALATION Not Given Q6H.RESP TEZ Hydromorphone HCl 0.2 mg 05/21/24 09:56 05/21/24 10:37 Hydromorphone 1 Mg/Ml Inj 1 Ml IVP 0.2 mg Q4H PRN Administration SEVERE PAIN Nicotine 1 patch 05/21/24 09:00 05/21/24 10:40 Nicotine 21 Mg Patch TRANSDERMA 1 patch DAILY TEZ Administration PFSH Anesthesia Medical History Hepatitis B Hematuria Depression History of heart attack HTN (hypertension) Elevated cholesterol BPH loc w urin obs/LUTS Hx of fracture of lower leg Hx of cataract Surgical History Hx of tonsillectomy Hx of abdominal surgery History of back surgery Hx of hand surgery Family History Grandmother Diabetes Father , AT AGE 81 CAD (coronary artery disease) Mother CAD (coronary artery disease) Social History Smoking and tobacco/nicotine status: current every day tobacco/nicotine user Alcohol intake: former Substance/Drug Use: former Marital status: Current occupational status: retired Data Anesthesia 05/21/24 04:56 05/21/24 04:56 Short CBC 05/21/24 Range/Units 04:56 WBC 17.51 H (3.29-11.43) 10^3/uL Hgb 18.80 H (11.27-16.99) g/dL Hct 56.9 H (37-53) % MCV 87.5 (82-101) fl Plt Count 313 (157-399) 10^3/cmm Neut % (Auto) 86.7 % Neut # (Auto) 15.18 H (1.8-7.7) 10^3/uL BMP 05/21/24 04:56 Sodium 137 Potassium 3.3 L Chloride 101 Carbon Dioxide 23 BUN 15 Creatinine 1.5 H Glucose 129 H Calcium 9.9 Liver Function 05/21/24 Range/Units 04:56 Total Bilirubin 0.3 (0.15-1.2) mg/dL AST 19 (0-40) U/L ALT 16 (0-41) U/L Alkaline Phosphatase 75 (40-130) U/L Albumin 3.2 L (3.5-5.2) g/dL Urine 05/21/24 Range/Units 10:05 Urine Color Yellow (Yellow) Urine Appearance Clear (CLEAR) Urine pH 6.5 (5-7) Ur Specific [place] 1.021 (1.005-1.030) Urine Protein 4+ A (Negative) Urine Glucose (UA) Trace H (Normal) Urine Ketones Negative (Negative) Urine Nitrate Negative (Negative) Urine Bilirubin Negative (Negative) Ur Leukocyte Esterase Negative (Negative) Urine RBC 0-2 (0-2) /hpf Urine WBC 0-5 (0-5) /hpf Blood Bank 05/21/24 10:28 Blood Type O Positive Rho(D) Type Rh positive Antibody Screen Negative COVID Results 05/21/24 10:27 Coronavirus 229E (PCR) Cancelled SARS-CoV-2 (PCR) Cancelled SARS-CoV-2 Ag (Rapid) negative Coags 05/21/24 04:56 PT 12.10 INR 0.84 APTT 27.5 Cardiac Studies: No Data to Display
--- NOTE | 2024-05-21 15:06 | W.PM.OPSUD ---
Surgery/Procedure H&P Update DATE OF PROCEDURE: May 21, 2024 DATE H&P PERFORMED: 05/21/24 H&P UPDATE INFORMATION: I have reviewed H&P completed within last 30 days, I have examined patient prior to procedure and No changes to prior documentation PREOP DIAGNOSIS: Left hip femoral neck fracture PRIMARY INDICATION FOR PROCEDURE: Left hip displaced femoral neck fracture PLANNED PROCEDURE: Operation Date: 05/21/24 14:50 Proposed Procedures p Hemiarthroplasty Hip(Left) - Prasanth Almendarez DO
[2024-05-21] MEDS: sodium chloride 0.9% 1,000 ML 30 ML IV (15:19)
[2024-05-21] MEDS: ceFAZolin 2,000 mg SDV 2000 MG IVP (15:36)
[2024-05-21] MEDS: tranexamic acid 1,000 mg/10mL SDV 1000 MG IV (16:04)
[2024-05-21] MEDS: VANCOMYCIN ADD-Vantage 1,000 MG VIAL 1000 MG XX (16:21)
--- NOTE | 2024-05-21 17:45 | XRR_ITS ---
PROCEDURE INFORMATION: Exam: XR Left Hip Exam date and time: 05/21/2024 6:04 PM Age: 69 years old Clinical indication: Device placement; Other: Mauro arthroplasty; Additional info: Post op left hip mauro TECHNIQUE: Imaging protocol: Radiologic exam of the left hip. Views: 2 or 3 views hip with pelvis when performed. COMPARISON: CT pelvis wo con [id number] 05/21/2024 5:14 AM FINDINGS: Bones/joints: Status post total left hip arthroplasty in anatomic alignment. No evidence of acute fracture or dislocation. Moderate degenerative changes of the right femoroacetabular joint. Soft tissues: Postoperative changes including subcutaneous gas and skin prasad. XR/XR hip LT 2-3V wo/w pel* [id number] IMPRESSION: Status post total left hip arthroplasty in anatomic alignment.
--- NOTE | 2024-05-21 17:46 | W.PM.BPON ---
Date of Procedure: 05/21/2024 Surgeon: Prasanth Almendarez DO Certified Juvenile Probation Officer(s): Sadiq Almnedarez PA-C Procedure(s) performed: Left hip hemiarthroplasty (cemented/posterior approach) Findings of the procedure(s): Patient was found to have comminuted fracture and displaced left femoral neck fracture underwent procedure as planned without issues or complications. Estimated blood loss: 300 mL Specimen(s) removed: Femoral head removed Post-operative diagnosis: Left hip displaced femoral neck fracture
--- NOTE | 2024-05-21 17:48 | P.OP_ITS ---
Operative Report Date of procedure: May 21, 2024 Surgeon: Prasanth Almendarez DO Procedure: Preoperative diagnosis: Left hip displaced femoral neck fracture post-op diagnosis: Same Procedure done: Left?hip?hemiarthroplasty, (cemented/posterior approach) Implants: Benita Accolade C 132 degree femoral stem size 4 Bipolar head 51 mm Femoral head +4 mm offset 8mm distal cement spacer Surgeon: Prasanth Almendarez DO Estimated blood loss: 300 mL IV fluids: See anesthesia record Urine output: See anesthesia record Complications: None Findings: See operative report Condition: stable Disposition: floor Brief History: Patient was seen in the emergency department and subsequently admitted after fall.? Patient sustained a left hip displaced femoral neck fracture.? Patient was subsequently admitted by the hospitalist team for medical management and preoperative optimization and the orthopedic surgery team was consulted for evaluation and treatment recommendations.? At that point time discussed with patient? treatment options.? We talked about nonoperative versus operative intervention talked about the risk benefits complication alternatives to surgical nonsurgical treatment options.? Risks of surgery were discussed and patient understands and agrees to proceed with procedure.? At this point time would recommend a left?hip?hemiarthroplasty.? This will offer patient pain control as well as early weightbearing.? Patient was medically optimized by the primary team she was then taken to the OR.? Patient understands risk benefits complication alternatives with surgical nonsurgical treatment options.? At this point time elects to proceed with left?hip?hemiarthroplasty.? All questions answered.? Patient understands agrees with current plan.? All questions answered. Procedure: Patient seen evaluated the preoperative holding area.? Consent was reviewed and signed with patient.? ?Pt was seen evaluated by the anesthesia department.? Once cleared for surgery patient patient was taken back to the operative suite.? Patient was then transported onto the OR table.? pt underwent anesthesia per the anesthesia department.? Once appropriately anesthetized patient was then positioned in lateral decubitus position with the left?hip?up.? Patient was placed on a pegboard appropriately secured to the bed all bony prominences well- padded.? Next the left lower extremity was then prepped and draped in sterile orthopedic fashion.? Final timeout performed.? Patient received appropriate preoperative antibiotics. A standard posterolateral approach was then made over the lateral aspect of the? hip.? Sharp scalpel incision was made through skin and subcutaneous tissue I then utilized a Carmona elevator to mobilize over the fascia.? The fascia was then split longitudinally with electrocautery.? Next a bursectomy was then performed.? I then placed Hohmann underneath the abductors.? The?hip?was placed under tension with internal rotation.? I then utilizing electrocautery performed a full-thickness release of the short external rotators and capsule in 1 full thick sleeve for lateral repair.? This was then taken down to the lesser trochanter.? Immediately on capsulotomy hematoma was noticed and displaced femoral neck fracture appreciated.? I then placed a Hohmann above and below the neck.? Patient had a comminuted fracture with steep vertical Powells angle this went right to the level of the lesser. As a result I utilized an oscillating saw to freshen the cut this was right at the level of the lesser there was no fracture propagation into the lesser. once this was performed this access was removed with rongeur.? ?I then utilized a corkscrew to remove the head.? This was then subsequently sized and measured to be a 51 mm head size.? I then thoroughly irrigated the acetabulum.? A Hohmann was placed anteriorly and thorough inspection of the acetabulum no significant arthritic changes were noted.? I then utilized a rongeur and Bovie to remove the pulvinar.? Once this was performed I then subsequently took my trial 51 mm head and trialed this which had excellent fit and appropriate suction fit noted.? This was then subsequently removed. Once this was performed I irrigated the socket and then turned my attention towards the femoral preparation.? I utilized Bovie and rongeur to remove the soft tissue off of the saddle.? Once this was done a box osteotome followed by a canal finder and? lateralizing rattail rasp was used to appropriately lateralized in the canal. It was noticed at this point originally was planning on performing press-fit fixation however patient had considerable thin cortices along the calcar and soft bone quality as a result I elected to cement. Next I then subsequently broached to a size 4 Accolade C. Unfortunately given the thin cortices and still the mobility at this point and unable to trial up to a 5, is unable to trial the size for but we had enough room measuring the tip of the stem to center of the neck length centering onto the greater trochanter was fairly even and so plan was to cement at the level of the lesser where the cut was and then subsequently trial up since we had up to a + 12mm neck length and this appeared to be able to have room for trialing. This point in time we then subsequently proceeded with standard cementation technique.? Cement was mixed on the back table the final implant was opened and appropriately measurement on distal cement plug to accommodate the cement mantle and femoral stem.? This was set and impacted in place to appropriate depth.? Next I utilized the cement brush thoroughly irrigated the canal and then dry the canal tampon.? Once cement was appropriately mixed and ready for cementation informed anesthesia and they optimize patient's oxygenation cement was then impacted using cement gun and then was subsequently pressurized.?? The femoral stem size 4 was then impacted in place with appropriate anteversion and held into place and all excess cement was removed and allowed to cure once cured I then trialed a up to a +4 mm size head/neck length which at that point there was which had excellent leg lengths as well as appropriate shuck, and excellent stability in all planes of motion with no evidence of instability.? At this point this was determined to being my final femoral head size.? This was subsequently dislocated the trial head was then removed the final implant of bipolar head 51 mm with a +4mm offset was then opened.? The trunnion was then cleaned and dried and this was impacted in place with excellent fixation.? I then reduced the?hip?this had excellent stability and appropriate leg lengths.? The wound bed was then thoroughly irrigated.? I then utilizing #5 Ethibond suture performed my repair of the capsule and short external rotators through bone tunnels.? ?Wound bed was then thoroughly irrigated,1 gram vanco powder placed in wound bed.? IT band was closed with strata fix suture and the deep subcutaneous and subcutaneous layers were closed with 0 strata fix and 2-0 strata fix.? Skin was then closed reapproximated with prasad.? Silverlon dressing applied.? Patient placed in abduction pillow posterior?hip?precautions.? pt? was awakened from anesthesia and taken to PACU in stable condition Disposition: Patient taken to PACU in stable condition will receive appropriate discharge directions as well as pain medication DVT prophylaxis postopera tively.? Patient? will return to the floor postoperatively.? Patient will be weightbearing as tolerated to the left lower extremity.? Posterior?hip?precautions. Abduction pillow in place.? DVT prophylaxis, pain medication, postoperative antibiotics and TXA.? Patient will work with PT/OT and discharge services for discharge planning.? Patient understands agrees with current plan.? All questions answered.? ?patient will? see me in the office in 2 weeks.
--- NOTE | 2024-05-21 18:04 | PM.PACU ---
PACU note Narrative: Patient is a 69-year-old male just underwent a left hip hemiarthroplasty. Pt transferred to PACU in stable condition. Dressing is dry. pt is awake and alert. pt can wiggle toes. Distal pulses are palpable toes are warm and well-perfused. Cap refill is normal and under 2 seconds. Sensation to foot is intact. Pain is controlled. Exam: somnolent, arousable Disposition: back to floor
--- NOTE | 2024-05-21 18:16 | PC.NURSE ---
Shift summary: Day started off rough for pt. pain control was an issue. New pain meds ordered and admin. Some improvement. Pt stated he has a high tolerance, he is now yars clean and sober. No skin issues noted. Pt was on room air. Hibicleanse bathing completed prior to surgery. Pt left floor around 1330 for hip surgery. He remains off the floor at this time.
[2024-05-21] MEDS: fentaNYL 50 mcg/mL INJ 2mL IVP (18:20)
[2024-05-21] MEDS: labetalol 5 mg/mL SDV 20mL 10 MG IVP (18:30)
--- NOTE | 2024-05-21 18:44 | ANE.PACU2 ---
Inpatient post-anesthesia follow up: Airway intact: Yes Vital signs: Temperature 97.7 F Pulse Rate 108 Respiratory Rate 15 Blood Pressure 150/89 Pulse Oximetry 94 Oxygen Delivery Me thod Room Air Oxygen Flow Rate 2 Fraction of Inspir ed Oxygen Hydration adequate: Yes Nausea and vomiting: No Pain level: 1 Mental status: Baseline
[2024-05-21] MEDS: HYDROmorphone 1 mg/mL INJ 1 mL 0.5 MG IVP ×2 (19:23→23:05)
[2024-05-21] MEDS: ipratropium-albuterol 3 mL Neb INHALATION (19:39)
[2024-05-21] MEDS: budesonide 0.5 mg/2 mL Neb 0.25 MG INHALATION (19:39)
[2024-05-21] MEDS: sennosides-docusate Tablet 2 TAB PO (20:11)
[2024-05-21] MEDS: calcium carb-vit d 600mg/400unit 1 Tablet 1 EACH PO (20:11)
[2024-05-21] MEDS: chlorhexidine gluconate 0.12% Btl 473 mL 30 ML MUCOUS MEM (20:11)
[2024-05-21] MEDS: mupirocin oint 22 gm 1 APPLIC NASAL (20:11)
[2024-05-21] MEDS: iron polysaccharide complex 150 mg Capsule PO (20:12)
[2024-05-21] MEDS: ceFAZolin 2,000 MG in sodium chloride 0.9% (plus) 50 ML 100 MG IV (22:57)
[2024-05-21] MEDS: tranexamic acid 1,000 MG/100 ML PREMIX 600 MG IV (23:31)
[2024-05-22] VITALS (19 sets, daily range): BP systolic 150–192; BP diastolic 56–98; PULSE 67–108; RESP 14–22; TEMP 36.4–37.2; O2SAT 90–94
[2024-05-22] MEDS: oxyCODONE 5 mg IR Tab/Cap PO ×5 (01:14→20:21)
[2024-05-22] MEDS: ipratropium-albuterol 3 mL Neb INHALATION ×4 (02:05→20:07)
[2024-05-22 06:01] LABS: Basophils # 0.1 10^3/uL (0.0-0.1); Basophils % 0.3 %; Hematocrit 46.4 % (37-53); Lymphocytes % 6.6 %; Mean Corpuscular HGB Conc 31.9 g/dL (30-55); Mean Corpuscular Hemoglobin 28.8 pg (27-33); Mean Corpuscular Volume 90.4 fl (82-101); Mean Platelet Volume 9.9 fL (7.4-10.4); Monocytes # 1.1 10^3/uL (0.2-0.9); Monocytes % 7.2 %; Neutrophils % 85.3 %; Nucleated Red Blood Cells % 0 %; Platelet Count 254 10^3/cmm (157-399); Red Blood Count 5.13 10^6/uL (3.85-5.65); Red Cell Distribution Width 13.8 % (12.1-15.1)
[2024-05-22 06:21] LABS: Anion Gap 15.4 (5-19); Blood Urea Nitrogen 18 mg/dL (8-23); Calcium 8.1 mg/dL (8.5-10.5); Carbon Dioxide 22 mmol/L (22-29); Chloride 102 mmol/L (98-107); Creatinine Clr Calc Pharmacy 36.8928; Glomerular Filtration Rate 33.3 mL/min (90-130); Glucose 125 mg/dL (65-115); Osmolality Calculated 285 mOsm/kg (285-295); Potassium 3.4 mmol/L (3.5-5.1); Sodium 136 mmol/L (136-145)
[2024-05-22] MEDS: ceFAZolin 2,000 MG in sodium chloride 0.9% (plus) 50 ML 100 MG IV ×2 (06:24→14:31)
[2024-05-22] MEDS: budesonide 0.5 mg/2 mL Neb 0.25 MG INHALATION ×2 (08:52→20:07)
[2024-05-22] MEDS: sennosides-docusate Tablet 2 TAB PO ×2 (08:59→17:01)
[2024-05-22] MEDS: enoxaparin 30 mg/0.3 mL Syringe SUBCUT (08:59)
[2024-05-22] MEDS: calcium carb-vit d 600mg/400unit 1 Tablet 1 EACH PO ×2 (08:59→17:01)
[2024-05-22] MEDS: nicotine 21 mg Patch 1 PATCH TRANSDERMA (08:59)
[2024-05-22] MEDS: multivitamin therapeutic Tablet 1 TAB PO (08:59)
[2024-05-22] MEDS: iron polysaccharide complex 150 mg Capsule PO ×2 (08:59→17:01)
[2024-05-22] MEDS: mupirocin oint 22 gm 1 APPLIC NASAL ×2 (09:01→17:09)
[2024-05-22] MEDS: chlorhexidine gluconate 0.12% Btl 473 mL 30 ML MUCOUS MEM ×4 (09:02→21:20)
--- NOTE | 2024-05-22 09:16 | US_ITS ---
WS: [id number] RENAL ULTRASOUND HISTORY: erwin COMPARISON: None available. TECHNIQUE: 2-D and color Doppler imaging of the kidney submitted. Right kidney: 11.2 cm x 5.1 cm x 6.5 cm. Cortex: 1.2 cm Normal echogenicity with no hydronephrosis or mass. Left kidney: 11.1 cm x 5.8 cm x 5.8 cm. Cortex: 1.1 cm Normal echogenicity with no hydronephrosis or mass. Aorta: Normal. Urinary Bladder: Normal distention. US/US renal BI* [id number] IMPRESSION: Normal renal ultrasound.
[2024-05-22 09:54] LABS: Creatine Phosphokinase 616 U/L (39-308)
[2024-05-22] MEDS: HYDROmorphone 1 mg/mL INJ 1 mL 0.5 MG IVP ×2 (09:59→17:50)
[2024-05-22] MEDS: sodium chloride 0.9% 1,000 ML 75 ML IV ×2 (09:59→22:24)
--- NOTE | 2024-05-22 12:32 | P.PN_ITS ---
Subjective 2 Subjective: Patient seen examined his afternoon has gotten up with therapy pain controlled medications. Likely needing rehab facility at discharge. Vitals/I&O/Wt Last Vital Signs Temp 97.7 F 05/22/24 11:53 Pulse 108 H 05/22/24 11:53 Resp 15 05/22/24 11:53 BP 150/89 05/22/24 11:53 Pulse Ox 94 05/22/24 11:53 O2 Del Method Room Air 05/22/24 11:53 O2 Flow Rate 2 05/21/24 18:31 05/21/24 05/22/24 05/22/24 22:59 06:59 14:59 Intake Total 760 / 860 510 / 1370 1006 / 1006 Output Total 1500 / 1900 600 / 2500 100 / 100 Balance -740 / -1040 -90 / -1130 906 / 906 Weight last 48 hrs Weight 178 lb 9.6 oz Weight 179 lb 1 oz Weight 180 lb Physical Exam 2 Narrative: Left hip examination: Dressing on in place, clean dry and intact. No evidence of saturation. Patient has normal postoperative swelling and tenderness to palpation to the left hip. Compartments are soft compressible,'s calf soft and nontender. Sensations intact to light touch distally. Distal pulses are palpable. Patient is able to wiggle toes as well as plantarflex and dorsiflex ankle. Urinary Catheter Management: Brock: Cath Placed During This Visit: yes, but has since been removed by the nurse Reason for Continuing Indwelling Catheter: Perioperative Use in Selected Surgeries Urinary Catheter Date of Insertion: 05/21/24 Urinary Catheter Time of Insertion: 15:45 Date Urinary Catheter Removed: 05/22/24 Time Urinary Catheter Discontinued: 05:00 Data 05/22/24 05:41 05/22/24 05:41 Xray Ortho: Radiologist's impression: Ordering Provider/Ordering MD: Prasanth Almendarez Date of Service: 05/21/24 Procedure(s): XR hip LT 2-3V wo/w pel* [id number] Accession Number(s): [id number] Report Number: [id number] PROCEDURE INFORMATION: Exam: XR Left Hip Exam date and time: 05/21/2024 6:04 PM Age: 69 years old Clinical indication: Device placement; Other: Mauro arthroplasty; Additional info: Post op left hip mauro TECHNIQUE: Imaging protocol: Radiologic exam of the left hip. Views: 2 or 3 views hip with pelvis when performed. COMPARISON: CT pelvis wo con [id number] 05/21/2024 5:14 AM FINDINGS: Bones/joints: Status post total left hip arthroplasty in anatomic alignment. No evidence of acute fracture or dislocation. Moderate degenerative changes of the right femoroacetabular joint. Soft tissues: Postoperative changes including subcutaneous gas and skin prasad. XR/XR hip LT 2-3V wo/w pel* [id number] IMPRESSION: Status post total left hip arthroplasty in anatomic alignment. A&P Assessment and plan (1) Fracture of femoral neck, left, closed: Plan X-rays reviewed?stable left hip hemiarthroplasty A.m. labs reviewed PT/OT Posterior hip precautions Pain control Weight-bear as tolerated left lower extremity Internal medicine on board as primary DVT prophylaxis Resume diet Orthopedics will continue to follow Attestations 2 Medical Necessity Statement*: Ongoing care status post left hip hemiarthroplasty Coding Level of Care Code Acute Code for Chg Fwd Diagnoses Fracture of femoral neck, left, closed S72.002A Time Spent (min) 15
[2024-05-22] MEDS: chlorthalidone 25 mg Tablet 12.5 MG PO (13:12)
[2024-05-22] MEDS: tamsulosin 0.4 mg Capsule PO (13:17)
[2024-05-22] MEDS: TRAMadol 50 mg Tablet PO ×2 (14:30→22:21)
[2024-05-22 15:09] LABS: Bilirubin Urine Negative (Negative); Blood Urine 2+ (Negative); Glucose Urine UA Trace (Normal); Ketones Urine Negative (Negative); Leukocyte Esterase Urine Negative (Negative); Nitrate Urine Negative (Negative); Protein Urine 4+ (Negative); Specific Gravity, Urine 1.021 (1.005-1.030); Urine Appearance Clear (CLEAR); Urine Color Yellow (Yellow); Urobilinogen Urine 0.2 mg/dL (Negative)
[2024-05-22 15:14] LABS: Add Urine Microscopic? YES; Bacteria Urine None Seen /hpf; Hyaline Casts Urine 8.26 /lpf; Squamous Epithelial Cell Urine 0-5 /hpf (0-5); WBC Urine 21-50 /hpf (0-5)
[2024-05-22 15:32] LABS: Add Urine Culture? Yes; Fine Granular Casts Urine 0-4 /lpf; UA Slide Review UA Slide Review Perf
--- NOTE | 2024-05-22 15:48 | P.PN_ITS ---
Subjective 2 Subjective: Patient was seen this morning, he tells me that he has a history of alcoholism and drug use in the past but has been sober for the last 7 years, he is worried about the addictive nature of his pain medications while he is here in the hospital but he is in a lot of pain, he also tells me that he is not getting his medications here such as his blood pressure medications and his citalopram, discussed resuming his home medications, he also uses Entecavir for history of hepatitis B, discussed we do not carry that medication here in the hospital he will have to have his family members bring it in, we discussed his YOANNA, will have to monitor his kidney function closely continue start IV fluids, renal ultrasound Vitals/I&O/Wt Last Vital Signs Temp 98.8 F 05/22/24 15:28 Pulse 96 05/22/24 15:28 Resp 20 H 05/22/24 15:36 BP 170/87 05/22/24 15:28 Pulse Ox 91 05/22/24 15:28 O2 Del Method Room Air 05/22/24 15:28 O2 Flow Rate 2 05/21/24 18:31 05/22/24 05/22/24 05/22/24 06:59 14:59 22:59 Intake Total 510 / 1370 1006 / 1006 50 / 1056 Output Total 600 / 2500 100 / 100 Balance -90 / -1130 906 / 906 50 / 956 Weight last 48 hrs Weight 81.012 kg Weight 81.221 kg Weight 81.647 kg Physical Exam 2 Const: COMMON NORMALS: no acute distress and patient oriented x3 Resp: COMMON NORMALS: normal respiratory effort, No retractions, No use of accessory muscles and clear to auscultation bilaterally AUSCULTATION: clear to auscultation bilaterally Cardio: COMMON NORMALS: regular rate, regular rhythm, S1 normal heart sound present and S2 normal heart sound present RATE: regular rate RHYTHM: r egular rhythm HEART SOUNDS: S1 normal heart sound present and S2 normal heart sound present GI: COMMON NORMALS: Normal to inspection, nondistended, normoactive bowel sounds present and non-tender Extremity: COMMON NORMALS: no pedal edema Neuro: COMMON NORMALS: patient oriented x3 Psych: COMMON NORMALS: mental status grossly normal Urinary Catheter Management: Brock: Cath Placed During This Visit: yes, but has since been removed by the nurse Reason for Continuing Indwelling Catheter: Perioperative Use in Selected Surgeries Urinary Catheter Date of Insertion: 05/21/24 Urinary Catheter Time of Insertion: 15:45 Date Urinary Catheter Removed: 05/22/24 Time Urinary Catheter Discontinued: 05:00 Data 05/22/24 05:41 05/22/24 05:41 A&P Assessment and plan (1) Fracture of femoral neck, left, closed: - Status post surgical intervention -Will monitor -PT OT -Pain control, anticoagulation as per orthopedic team (2) Leukocytosis: - Concerns for possible UTI, Rocephin (3) Acute kidney injury: - Creatinine up to 2.0 -Suspected CKD -Does have elevated CPK over 600 -Gentle IV hydration -Renal ultrasound Plan History of alcoholism, substance abuse, has been sober for 7 years On treatment for hepatitis B, Entecavir, advised him to bring medication from home COPD not in exacerbation Current smoker Attestations 2 Medical Necessity Statement*: Patient requires hospitalization for leukocytosis, YOANNA, UTI Diagnoses Fracture of femoral neck, left, closed S72.002A Leukocytosis D72.829 Acute kidney injury N17.9
[2024-05-22] MEDS: metoprolol tartrate 25 mg Tablet PO (17:01)
[2024-05-22] MEDS: amlodipine 5 mg Tablet PO (17:01)
[2024-05-22] MEDS: citalopram 20 mg Tablet 40 MG PO (17:09)
[2024-05-22] MEDS: ENTECAVIR 1 MG 1 EACH PO (18:12)
[2024-05-22] MEDS: cefTRIAXone 1,000 mg SDV 1000 MG IVP (21:19)
[2024-05-23] VITALS (17 sets, daily range): BP systolic 134–168; BP diastolic 72–98; PULSE 64–91; RESP 14–18; TEMP 36.5–37.2; O2SAT 88–94
[2024-05-23] MEDS: oxyCODONE 5 mg IR Tab/Cap PO ×3 (00:35→14:04)
[2024-05-23 03:45] LABS: Basophils # 0.1 10^3/uL (0.0-0.1); Basophils % 0.6 %; Eosinophils # 0.2 10^3/uL (0.0-0.8); Eosinophils % 1.6 %; Lymphocytes # 1.6 10^3/uL (0.8-4.8); Lymphocytes % 11.6 %; Mean Corpuscular HGB Conc 32.8 g/dL (30-55); Mean Corpuscular Volume 88.3 fl (82-101); Mean Platelet Volume 10.1 fL (7.4-10.4); Monocytes # 1.2 10^3/uL (0.2-0.9); Monocytes % 8.5 %; Nucleated Red Blood Cells % 0 %; Platelet Count 223 10^3/cmm (157-399); Red Blood Count 5.21 10^6/uL (3.85-5.65); White Blood Count 13.65 10^3/uL (3.29-11.43)
[2024-05-23 04:05] LABS: Anion Gap 16.8 (5-19); Blood Urea Nitrogen 18 mg/dL (8-23); Calcium 8.7 mg/dL (8.5-10.5); Carbon Dioxide 23 mmol/L (22-29); Chloride 102 mmol/L (98-107); Creatinine Clr Calc Pharmacy 43.4033; Glomerular Filtration Rate 40.2 mL/min (90-130); Glucose 104 mg/dL (65-115); Osmolality Calculated 290 mOsm/kg (285-295); Sodium 139 mmol/L (136-145)
[2024-05-23 04:11] LABS: Potassium 2.8 mmol/L (3.5-5.1)
[2024-05-23] MEDS: HYDROmorphone 1 mg/mL INJ 1 mL IVP ×2 (04:19→23:16)
[2024-05-23] MEDS: ondansetron 2 mg/ML SDV 2 mL 4 MG IVP ×2 (04:27→18:06)
[2024-05-23 04:29] LABS: Magnesium 1.7 mg/dL (1.7-2.3); Phosphorus 2.8 mg/dL (2.5-4.5)
[2024-05-23] MEDS: ipratropium-albuterol 3 mL Neb INHALATION ×4 (04:48→20:07)
[2024-05-23] MEDS: potassium chloride ER 20 mEq Tablet PO (05:14)
[2024-05-23] MEDS: magnesium sulfate premix 2 GM/50 ML PIGGYBACK IV (05:44)
[2024-05-23] MEDS: lidocaine 1% 5 ML in potassium chloride premix 100 ML 26.25 ML IV (07:24)
[2024-05-23] MEDS: budesonide 0.5 mg/2 mL Neb 0.25 MG INHALATION ×2 (08:59→20:07)
[2024-05-23] MEDS: lisinopril 20 mg Tablet 40 MG PO (09:01)
[2024-05-23] MEDS: sennosides-docusate Tablet 2 TAB PO (09:02)
[2024-05-23] MEDS: iron polysaccharide complex 150 mg Capsule PO (09:02)
[2024-05-23] MEDS: tamsulosin 0.4 mg Capsule PO (09:02)
[2024-05-23] MEDS: calcium carb-vit d 600mg/400unit 1 Tablet 1 EACH PO (09:02)
[2024-05-23] MEDS: multivitamin therapeutic Tablet 1 TAB PO (09:02)
[2024-05-23] MEDS: nicotine 21 mg Patch 1 PATCH TRANSDERMA (09:03)
[2024-05-23] MEDS: mupirocin oint 22 gm 1 APPLIC NASAL ×2 (09:03→17:38)
[2024-05-23] MEDS: metoprolol tartrate 25 mg Tablet PO (09:03)
[2024-05-23] MEDS: chlorthalidone 25 mg Tablet 12.5 MG PO (09:03)
[2024-05-23] MEDS: enoxaparin 30 mg/0.3 mL Syringe SUBCUT (09:04)
[2024-05-23] MEDS: chlorhexidine gluconate 0.12% Btl 473 mL 30 ML MUCOUS MEM ×2 (09:04→14:05)
[2024-05-23] MEDS: potassium chloride ER 20 mEq Tablet 40 MEQ PO (09:06)
[2024-05-23] MEDS: ENTECAVIR 1 MG 1 EACH PO (09:06)
[2024-05-23] MEDS: CITALOPRAM 40 MG 1 EACH PO (09:07)
[2024-05-23] MEDS: TRAMadol 50 mg Tablet PO ×2 (11:14→15:36)
--- NOTE | 2024-05-23 13:56 | P.PN_ITS ---
Subjective 2 Subjective: Patient seen examined postoperative day 2 he is progressing well with therapy planning on rehab facility discharge. Vitals/I&O/Wt Last Vital Signs Temp 98.0 F 05/23/24 08:00 Pulse 86 05/23/24 08:00 Resp 18 05/23/24 08:00 BP 157/72 05/23/24 08:00 Pulse Ox 92 05/23/24 08:00 O2 Del Method Room Air 05/23/24 08:00 O2 Flow Rate 2 05/21/24 18:31 05/22/24 05/23/24 05/23/24 22:59 06:59 14:59 Intake Total 1181.25 / 2187.25 200 / 2387.25 1187.25 / 1187.25 Output Total 400 / 500 875 / 1375 Balance 781.25 / 1687.25 -675 / 1012.25 1187.25 / 1187.25 Weight last 48 hrs Weight 197 lb 6.4 oz Weight 178 lb 9.6 oz Physical Exam 2 Narrative: Left hip examination: Dressing on in place, clean dry and intact. No evidence of saturation. Patient has normal postoperative swelling and tenderness to palpation to the left hip. Compartments are soft compressible,'s calf soft and nontender. Sensations intact to light touch distally. Distal pulses are palpable. Patient is able to wiggle toes as well as plantarflex and dorsiflex ankle. Urinary Catheter Management: Brock: Cath Placed During This Visit: yes, but has since been removed by the nurse Reason for Continuing Indwelling Catheter: Other Urinary Catheter Date of Insertion: 05/21/24 Urinary Catheter Time of Insertion: 15:45 Date Urinary Catheter Removed: 05/22/24 Time Urinary Catheter Discontinued: 05:00 Data 05/23/24 03:16 05/23/24 03:16 A&P Assessment and plan (1) Fracture of femoral neck, left, closed: Plan Postop day 2 left hip hemiarthroplasty PACU x-rays ?stable left hip hemiarthroplasty A.m. labs reviewed PT/OT Posterior hip precautions Pain control Weight-bear as tolerated left lower extremity Internal medicine on board as primary DVT prophylaxis Resume diet Patient stable at this point time from an orthopedic standpoint for discharge. This point time orthopedic surgery team will sign off patient follow peripherally if there is any questions pertaining patient's care free to contact orthopedics on-call. Appropriate discharge instructions in the medications be in patient's chart patient to follow-up in 2 weeks at the orthopedic office. Patient understands and agrees with current plan. All questions answered. Attestations 2 Medical Necessity Statement*: Ongoing care left hip hemiarthroplasty Coding Level of Care Code Acute Code for Chg Fwd Diagnoses Fracture of femoral neck, left, closed S72.002A
--- NOTE | 2024-05-23 14:03 | PC.SOCIAL ---
IMM Updated Updated pt on IMM.. No questions voiced. Provided pt a copy. Initialed, dated, & timed a copy & placed in chart.
[2024-05-23] MEDS: fenofibrate 145 mg Tablet PO (14:04)
[2024-05-23] MEDS: sodium chloride 0.9% 1,000 ML 50 ML IV (14:05)
--- NOTE | 2024-05-23 17:18 | P.PN_ITS ---
Subjective 2 Subjective: Patient was seen this morning, denies any fevers, chills, no cough, pain is well-controlled he is sitting up in a chair, Vitals/I&O/Wt Last Vital Signs Temp 98.1 F 05/23/24 12:00 Pulse 85 05/23/24 14:00 Resp 17 05/23/24 14:04 BP 134/84 05/23/24 12:00 Pulse Ox 93 05/23/24 14:00 O2 Del Method Room Air 05/23/24 14:00 O2 Flow Rate 2 05/21/24 18:31 05/23/24 05/23/24 05/23/24 06:59 14:59 22:59 Intake Total 200 / 2387.25 1391.00 / 1391.00 Output Total 875 / 1375 Balance -675 / 1012.25 1391.00 / 1391.00 Weight last 48 hrs Weight 89.539 kg Weight 81.012 kg Physical Exam 2 Const: COMMON NORMALS: no acute distress and patient oriented x3 Resp: COMMON NORMALS: normal respiratory effort, No retractions, No use of accessory muscles and clear to auscultation bilaterally AUSCULTATION: clear to auscultation bilaterally Cardio: COMMON NORMALS: regular rate, regular rhythm, S1 normal heart sound present and S2 normal heart sound present RATE: regular rate RHYTHM: r egular rhythm HEART SOUNDS: S1 normal heart sound present and S2 normal heart sound present GI: COMMON NORMALS: Normal to inspection, nondistended, normoactive bowel sounds present and non-tender Extremity: COMMON NORMALS: no pedal edema Neuro: COMMON NORMALS: patient oriented x3 Psych: COMMON NORMALS: mental status grossly normal Urinary Catheter Management: Brock: Cath Placed During This Visit: yes, but has since been removed by the nurse Reason for Continuing Indwelling Catheter: Other Urinary Catheter Date of Insertion: 05/21/24 Urinary Catheter Time of Insertion: 15:45 Date Urinary Catheter Removed: 05/22/24 Time Urinary Catheter Discontinued: 05:00 Data 05/23/24 03:16 05/23/24 03:16 A&P Assessment and plan (1) Fracture of femoral neck, left, closed: - Status post surgical intervention -Will monitor -PT OT -Pain control, anticoagulation as per orthopedic team (2) Leukocytosis: - Concerns for possible UTI, Rocephin (3) Acute kidney injury: - Creatinine up to 1.7 -Suspected CKD -Does have elevated CPK over 600 -Gentle IV hydration -Renal ultrasound Plan History of alcoholism, substance abuse, has been sober for 7 years On treatment for hepatitis B, Entecavir, advised him to bring medication from home COPD not in exacerbation Current smoker Hypokalemia, replace potassium p.o. Attestations 2 Medical Necessity Statement*: Patient requires hospitalization for hip fracture, leukocytosis, YOANNA, UTI Diagnoses Fracture of femoral neck, left, closed S72.002A Leukocytosis D72.829 Acute kidney injury N17.9
--- NOTE | 2024-05-23 17:50 | XRR_ITS ---
PROCEDURE INFORMATION: Exam: XR Abdomen Exam date and time: 05/23/2024 6:31 PM Age: 69 years old Clinical indication: Constipation; Prior surgery; Surgery date: 6+ months; Surgery type: Thoracic/lumbar fusion, total hip; Additional info: Constipation, n/v TECHNIQUE: Imaging protocol: Radiologic exam of the abdomen. Views: Frontal supine view of the abdomen. 1 View. COMPARISON: CT abdomen pelvis wo/w [id number] 08/30/2021 10:33 AM FINDINGS: Gastrointestinal tract: There is mild fecal stasis. Bowel gas pattern is nonobstructive. Bones/joints: Postoperative changes from posterior fusion involving the lower thoracic spine. Recent postoperative changes from left total hip replacement. There is a small amount of subcutaneous emphysema involving the left hip with left lateral skin prasad present. XR/XR KUB portable [id number] IMPRESSION: Mild fecal stasis.
[2024-05-23] MEDS: polyethylene glycol 3350 Pkt 17 gm PO (18:03)
[2024-05-23 19:13] LABS: Anion Gap 15.1 (5-19); Blood Urea Nitrogen 24 mg/dL (8-23); Calcium 9.1 mg/dL (8.5-10.5); Carbon Dioxide 22 mmol/L (22-29); Chloride 102 mmol/L (98-107); Creatinine Clr Calc Pharmacy 42.8606; Glomerular Filtration Rate 37.6 mL/min (90-130); Glucose 134 mg/dL (65-115); Osmolality Calculated 286 mOsm/kg (285-295); Potassium 4.1 mmol/L (3.5-5.1); Sodium 135 mmol/L (136-145)
--- NOTE | 2024-05-23 19:31 | CTR_ITS ---
PROCEDURE INFORMATION: Exam: CT Abdomen And Pelvis Without Contrast Exam date and time: 05/23/2024 7:51 PM Age: 69 years old Clinical indication: Bloating and nausea and vomiting; Prior surgery; Surgery date: Post-operative (0-2 days); Surgery type: Left megan 05/21/2024. Spinal fusion; Patient HX: Persistent n/v with abd distention; Additional info: Vomiting, abd distension TECHNIQUE: Imaging protocol: Computed tomography of the abdomen and pelvis without contrast. Radiation optimization: All CT scans at this facility use at least one of these dose optimization techniques: automated exposure control; mA and/or kV adjustment per patient size (includes targeted exams where dose is matched to clinical indication); or iterative reconstruction. COMPARISON: CT pelvis wo con [id number] 05/21/2024 5:14 AM RADIATION DOSE METRICS: Total DLP (mGy-cm): 789.53 FINDINGS: Liver: The liver is enlarged with capsular nodularity. Gallbladder and biliary ducts: The gallbladder is surgically absent. Pancreas: Normal. No ductal dilation. Spleen: The spleen is enlarged measuring 13.1 cm in length. Adrenal glands: Normal. No mass. Kidneys and ureters: Normal. No hydronephrosis. Stomach and bowel: Scattered colon diverticula. No inflammatory change identified involving the GI tract. No signs of bowel obstruction. Fecal stasis present. Appendix: No evidence of appendicitis. Intraperitoneal space: Unremarkable. No free air. No significant fluid collection. Vasculature: There is a stable infrarenal abdominal aortic aneurysm measuring 3.5 cm in diameter. Scattered calcific plaque involves the abdominal aorta and iliac arteries. Lymph nodes: Unremarkable. No enlarged lymph nodes. Urinary bladder: Unremarkable as visualized. Reproductive: Unremarkable as visualized. Bones/joints: Postoperative changes from recent left total hip replacement. Old fracture involves the left inferior pubic ramus. Postoperative changes from posterior fusion from T10 through T12 with posterior stabilization rods and pedicle screws in place for a chronic T11 compression fracture with changes from kyphoplasty. Soft tissues: There is subcutaneous emphysema involving the left lateral thigh and gluteal region with lateral skin prasad in place. CT/CT abdomen pelvis wo con [id number] IMPRESSION: 1. No acute abnormality. 2. Hepatic parenchymal disease with splenomegaly. 3. Stable infrarenal abdominal aortic aneurysm. 4. Fecal stasis. 5. Postoperative changes from recent left total hip replacement.
--- NOTE | 2024-05-23 19:49 | PC.NURSE ---
[address] Stock that patient was feeling full and stomach was hard. Patient hasn't had bowel movement since he had surgery. I asked patient if he was having acid reflux because he was rubbing his throat. I got an order for miralax and order for KUB. I put the order in stat because patient and trying to throw up. Patient did spit up slimy dark looking vomit small amt at that time. I gave patient zofran and the miralax then tried to get ahold over xray but couldn't get any answer. Priscilla RN said she would keep trying for me since I had got a new admit at the same time as the patient was having the nausea and vomiting. Xray told Priscilla that they were in ER and they would come up afterwards. Report was given to nightshift nurse.
--- NOTE | 2024-05-23 20:47 | XRR_ITS ---
PROCEDURE INFORMATION: Exam: XR Chest Exam date and time: 05/23/2024 9:21 PM Age: 69 years old Clinical indication: Device placement; Patient HX: Ng tube confirmation TECHNIQUE: Imaging protocol: Radiologic exam of the chest. Views: 1 view. COMPARISON: CR (CHEST, ) 05/21/2024 5:06 AM FINDINGS: Tubes, catheters and devices: There is a enteric tube with tip in the region of the body of the stomach. Lungs: Unremarkable. No consolidation. Pleural spaces: Unremarkable. No pleural effusion. No pneumothorax. Heart/Mediastinum: Unremarkable. No cardiomegaly. Bones/joints: Unremarkable. Other findings: This radiograph is centered over the upper abdomen and lower chest. XR/XR chest 1V portable [id number] IMPRESSION: Enteric tube in good position.
[2024-05-23] MEDS: cefTRIAXone 1,000 mg SDV 1000 MG IVP (23:17)
[2024-05-23 23:38] LABS: Ammonia 38 umol/L (16-60)
[2024-05-24] VITALS (18 sets, daily range): BP systolic 131–194; BP diastolic 70–96; PULSE 61–95; RESP 14–22; TEMP 36.4–36.9; O2SAT 86–97
[2024-05-24] MEDS: ipratropium-albuterol 3 mL Neb INHALATION ×4 (01:22→19:54)
--- NOTE | 2024-05-24 01:39 | XRR_ITS ---
PROCEDURE INFORMATION: Exam: XR Chest Exam date and time: 05/24/2024 1:44 AM Age: 69 years old Clinical indication: Device placement; Ng tube; Prior surgery; Surgery date: 6+ months; Surgery type: Spinal fusion; Patient HX: Recheck for ng placement. No output with suction. ; Additional info: Chest pain, re-check placement TECHNIQUE: Imaging protocol: Radiologic exam of the chest. Views: 1 view. COMPARISON: CR (CHEST, ) 05/23/2024 9:21 PM FINDINGS: Tubes, catheters and devices: NG tube present with tip in the proximal stomach. The side port for the enteric tube is below the GE junction. Lungs: The lungs are clear. Pleural spaces: Unremarkable. No pleural effusion. No pneumothorax. Heart/Mediastinum: The heart is stable in size. Bones/joints: Unremarkable. XR/XR chest 1V portable [id number] IMPRESSION: Enteric tube with tip in the region of the proximal stomach.
[2024-05-24 06:12] LABS: Basophils # 0.1 10^3/uL (0.0-0.1); Basophils % 0.7 %; Eosinophils # 0.2 10^3/uL (0.0-0.8); Hematocrit 47.8 % (37-53); Lymphocytes # 1.2 10^3/uL (0.8-4.8); Lymphocytes % 9.9 %; Mean Corpuscular HGB Conc 30.3 g/dL (30-55); Mean Corpuscular Hemoglobin 28.8 pg (27-33); Mean Corpuscular Volume 94.8 fl (82-101); Mean Platelet Volume 10.3 fL (7.4-10.4); Monocytes # 0.9 10^3/uL (0.2-0.9); Monocytes % 7.3 %; Neutrophils # 9.73 10^3/uL (1.8-7.7); Neutrophils % 79.2 %; Nucleated Red Blood Cells % 0 %; Platelet Count 245 10^3/cmm (157-399); Red Blood Count 5.04 10^6/uL (3.85-5.65); Red Cell Distribution Width 14.3 % (12.1-15.1); White Blood Count 12.27 10^3/uL (3.29-11.43)
[2024-05-24 06:47] LABS: Anion Gap 15.8 (5-19); Blood Urea Nitrogen 24 mg/dL (8-23); Calcium 8.8 mg/dL (8.5-10.5); Carbon Dioxide 21 mmol/L (22-29); Chloride 102 mmol/L (98-107); Glomerular Filtration Rate 37.6 mL/min (90-130); Glucose 92 mg/dL (65-115); Osmolality Calculated 284 mOsm/kg (285-295); Potassium 3.8 mmol/L (3.5-5.1); Sodium 135 mmol/L (136-145)
--- NOTE | 2024-05-24 08:10 | XRR_ITS ---
PROCEDURE INFORMATION: Exam: XR Abdomen Exam date and time: 05/24/2024 9:24 AM Age: 69 years old Clinical indication: Bloating and constipation and nausea TECHNIQUE: Imaging protocol: Radiologic exam of the abdomen. Views: Frontal supine view of the abdomen. 1 View. COMPARISON: CT abdomen pelvis con [id number] 05/23/2024 7:51 PM FINDINGS: Gastrointestinal tract: Large amount of retained stool in the colon constipation. Nonobstructive bowel gas pattern. Intraperitoneal space: Limited evaluation free air given supine examination. Bones/joints: Thoracolumbar posterior fusion. XR/XR KUB portable [id number] IMPRESSION: As above.
[2024-05-24] MEDS: HYDROmorphone 1 mg/mL INJ 1 mL 0.5 MG IVP ×4 (08:30→20:22)
[2024-05-24] MEDS: nicotine 21 mg Patch 1 PATCH TRANSDERMA (08:31)
[2024-05-24] MEDS: enoxaparin 30 mg/0.3 mL Syringe SUBCUT (08:31)
[2024-05-24] MEDS: labetalol 5 mg/mL SDV 20mL 10 MG IVP ×2 (08:31→12:45)
[2024-05-24] MEDS: budesonide 0.5 mg/2 mL Neb 0.25 MG INHALATION ×2 (08:43→19:54)
[2024-05-24 08:50] LABS: Alanine Aminotransferase 9 U/L (0-41); Albumin Level 2.6 g/dL (3.5-5.2); Alkaline Phosphatase 60 U/L (40-130); Aspartate Amino Transferase 31 U/L (0-40); Lipase 17 U/L (13-60); Magnesium 2.2 mg/dL (1.7-2.3); Phosphorus 3.2 mg/dL (2.5-4.5); Total Bilirubin 0.3 mg/dL (0.15-1.2); Total Protein 6.6 g/dL (6.6-8.7)
[2024-05-24] MEDS: sodium chloride 0.9% 1,000 ML 75 ML IV ×2 (09:05→18:30)
[2024-05-24] MEDS: metoclopramide 5 mg/mL SDV 2 mL IVP ×2 (09:59→18:27)
[2024-05-24] MEDS: Fleet Enema 133 mL Enema PR (10:00)
--- NOTE | 2024-05-24 10:01 | P.CONIM_ITS ---
Providers/Reason For Consult 2 Consulting Physician/Specialty*: Dr. Sukhjinder Diehl, DO/General Surgery Reason for Consult*: Nausea, vomiting, constipation Attending Physician: Keon Stock MD History of Present Illness History of Present Illness Ormyah Vanessa Holm is a 69 year old male, with a history of COPD and polysubstance dependence who has been sober for the past 6 years, tripped over his dog and fell, breaking his left femoral neck. He underwent left hip hemiarthroplasty. He has been doing well since and not complaining of any abdominal pain. But yesterday became nauseous with some feculent emesis. CT abdomen pelvis shows fecal stasis but no obstruction. NG tube currently in place suctioning fecal material. He denies any abdominal pain but does report some nausea. Denies hematochezia and/or melena Review of Systems 2 General: Reports: 10 or more systems reviewed and unremarkable except in HPI and below Medications/Allergies Home Medications Medication Instructions Recorded Confirmed Last Taken Type amlodipine 5 mg tablet 5 mg PO QPM 02/17/21 05/21/24 05/20/24 History citalopram 40 mg tablet 40 mg PO DAILY 02/17/21 05/21/24 05/20/24 History metoprolol tartrate 25 mg tablet 25 mg PO BID 02/17/21 05/21/24 05/20/24 History albuterol sulfate 90 mcg/actuation 2 puff inhalation Q6H PRN Allergy 08/11/21 05/21/24 01/31/24 History aerosol inhaler Symptoms budesonide-formoterol HFA 160 1 puff inhalation DAILY 01/31/24 05/21/24 02/01/24 History mcg-4.5 mcg/actuation aerosol inhaler (Symbicort) entecavir 1 mg tablet 1 mg PO DAILY 01/31/24 05/21/24 05/20/24 History fenofibrate nanocrystallized 145 145 mg PO DAILY 01/31/24 05/23/24 05/20/24 History mg tablet loratadine 10 mg tablet (Claritin) 10 mg PO DAILY 01/31/24 05/21/24 05/20/24 History budesonide 160 mcg-glycopyr 9 2 inh inhalation BID 05/21/24 05/21/24 05/20/24 History mcg-formot 4.8 mcg/actuation HFA inhaler (Breztri Aerosphere) chlorthalidone 25 mg tablet 12.5 mg PO DAILY 05/21/24 05/21/24 Unknown History hydrochlorothiazide 12.5 mg tablet 12.5 mg PO DAILY 05/21/24 05/21/24 05/20/24 History lisinopril 40 mg tablet 40 mg PO DAILY 05/21/24 05/21/24 05/20/24 History oxycodone 5 mg tablet 5 mg PO Q6H PRN pain postop 7 days 05/23/24 Unknown Rx #28 tabs Allergies Allergy/AdvReac Type Severity Reaction Status Date / Time trazodone Allergy itching Verified 05/21/24 04:53 Current Medications Generic Name Dose Route Start Last Admin Trade Name Freq PRN Reason Stop Dose Admin Albuterol/Ipratropium 3 ml 05/21/24 14:00 05/24/24 08:43 Ipratropium-Albuterol 3 Ml Neb INHALATION 3 ml Q6H.RESP TEZ Administration Albuterol/Ipratropium 3 ml 05/21/24 09:00 05/23/24 04:48 Ipratropium-Albuterol 3 Ml Neb INHALATION 3 ml Q6H PRN Administration SHORTNESS OF BREATH Amlodipine Besylate 5 mg 05/22/24 18:00 05/23/24 19:34 Amlodipine 5 Mg Tablet PO Not Given QPM TEZ Budesonide 0.25 mg 05/21/24 20:00 05/24/24 08:43 Budesonide 0.5 Mg/2 Ml Neb INHALATION 0.25 mg BID.RESPIRATORY TEZ Administration Calcium Carbonate 1 each 05/21/24 18:57 05/23/24 19:34 Calcium Carb-Vit D 600mg/400unit 1 Tablet PO Not Given BID TEZ Chlorhexidine Gluconate 30 ml 05/21/24 21:00 05/23/24 22:15 Chlorhexidine Gluconate 0.12% Btl 473 Ml MUCOUS MEM Not Given QID TEZ Chlorthalidone 12.5 mg 05/22/24 12:15 05/23/24 09:03 Chlorthalidone 25 Mg Tablet PO 12.5 mg DAILY TEZ Administration Enoxaparin Sodium 30 mg 05/22/24 08:00 05/24/24 08:31 Enoxaparin 30 Mg/0.3 Ml Syringe SUBCUT 30 mg Q24H TEZ Administration Fenofibrate 145 mg 05/23/24 13:30 05/23/24 14:04 Fenofibrate 145 Mg Tablet PO 145 mg DAILY TEZ Administration Sodium Chloride 1,000 mls @ 75 mls/hr 05/24/24 08:15 05/24/24 09:05 Sodium Chloride 0.9% IV 75 mls/hr .[id number] TEZ Administration Labetalol HCl 10 mg 05/24/24 07:54 05/24/24 08:31 Labetalol 5 Mg/Ml Sdv 20ml IVP 10 mg Q4H PRN Administration sbp>180 or dbp>100 hold if hr<60 Lisinopril 40 mg 05/23/24 09:00 05/23/24 09:01 Lisinopril 20 Mg Tablet PO 40 mg DAILY TEZ Administration Metoclopramide HCl 5 mg 05/24/24 08:14 05/24/24 09:59 Metoclopramide 5 Mg/Ml Sdv 2 Ml IVP 5 mg Q6H PRN Administration NAUSEA AND VOMITING Metoprolol Tartrate 25 mg 05/22/24 18:00 05/23/24 19:34 Metoprolol Tartrate 25 Mg Tablet PO Not Given BID TEZ Multivitamins Therapeutic 1 tab 05/22/24 09:00 05/23/24 09:02 Multivitamin Therapeutic Tablet PO 1 tab DAILY TEZ Administration Mupirocin 1 applic 05/21/24 18:57 05/24/24 08:32 Mupirocin Oint 22 Gm NASAL 05/26/24 18:56 Not Given BID TEZ Nicotine 1 patch 05/21/24 09:00 05/24/24 08:31 Nicotine 21 Mg Patch TRANSDERMA 1 patch DAILY TEZ Administration Non-Formulary Medication 1 mg 05/22/24 17:30 05/23/24 09:06 Entecavir PO 1 mg DAILY TEZ Administration Non-Formulary 1 each 05/23/24 09:00 05/23/24 09:07 Medication PO 1 each Citalopram 40 Mg Tab DAILY TEZ Administration Ondansetron HCl 4 mg 05/21/24 09:03 05/23/24 18:06 Ondansetron 2 Mg/Ml Sdv 2 Ml IVP 4 mg Q8H PRN Administration vomiting, or N/V if npo Polysaccharide Iron Complex 150 mg 05/21/24 18:57 05/23/24 19:34 Iron Polysaccharide Complex 150 Mg Capsule PO Not Given BIDWM TEZ Senna/Docusate Sodium 2 tab 05/21/24 18:57 05/23/24 19:34 Sennosides-Docusate Tablet PO Not Given BID TEZ Tamsulosin HCl 0.4 mg 05/22/24 12:20 05/23/24 09:02 Tamsulosin 0.4 Mg Capsule PO 0.4 mg DAILY TEZ Administration Tramadol HCl 50 mg 05/21/24 18:57 05/23/24 15:36 Tramadol 50 Mg Tablet PO 50 mg Q4H PRN Administration MILD PAIN PFSH Acute 2 PFSH: Medical History Hepatitis B Hematuria Depression History of heart attack HTN (hypertension) Elevated cholesterol BPH loc w urin obs/LUTS Hx of fracture of lower leg Hx of cataract Surgical History Hx of tonsillectomy Hx of abdominal surgery History of back surgery Hx of hand surgery Family History Grandmother Diabetes Father , AT AGE 81 CAD (coronary artery disease) Mother CAD (coronary artery disease) Social History Smoking and tobacco/nicotine status: current every day tobacco/nicotine user Alcohol intake: former Substance/Drug Use: former Marital status: Current occupational status: retired Vitals/I&O/Wt Last Vital Signs Temp 98.0 F 05/24/24 07:53 Pulse 86 05/24/24 08:51 Resp 18 05/24/24 08:51 BP 194/90 05/24/24 07:53 Pulse Ox 91 05/24/24 08:51 O2 Del Method Nasal Cannula 05/24/24 08:51 O2 Flow Rate 3 05/24/24 08:51 05/23/24 05/24/24 05/24/24 22:59 06:59 14:59 Intake Total 250 / 1641.00 Output Total 750 / 750 Balance -500 / 891.00 Weight last 48 hrs Weight 188 lb 9.6 oz Weight 197 lb 6.4 oz Physical Exam 2 Narrative: General : Patient is well developed , no acute distress, oriented x3 Head : Normal cephalic, a-traumatic. Ears : Pinnae and external canal are normal. Hearing is normal. Eyes : PERRLA, Sclera and injection are normal. No conjunctival discharge. Nose : Mucous membranes are without erythema. Throat : buccal mucosa is normal, gums are without significant recession or hypertrophy. Lungs : Equal chest rise bilaterally, no use of accessory muscles, trachea is midline. Cor : Rate and rhythm are normal. Abdomen : Soft, mildly distended, NT, no g/r/m Extremities : No edema, no cyanosis or clubbing, dorsalis pedis pulses are present bilaterally, non-tender to palpation of calves. Upper extremities are normal bilaterally. Back : non-tender to palpation, no CVA tenderness. Neuro : CN II - XII intact, Upper and lower extremities have equal and full strength Urinary Catheter Management: Brock: Cath Placed During This Visit: yes, but has since been removed by the nurse Reason for Continuing Indwelling Catheter: Other Urinary Catheter Date of Insertion: 05/21/24 Urinary Catheter Time of Insertion: 15:45 Date Urinary Catheter Removed: 05/22/24 Time Urinary Catheter Discontinued: 05:00 Data 05/24/24 04:32 05/24/24 06:20 A&P Assessment and plan (1) Constipation: (2) Nausea and vomiting: (3) Fracture of femoral neck, left, closed: Plan Status post left femoral hemiarthroplasty Relistor Fleets enema At noon, place 1 bottle of magnesium citrate in the NG tube and then clamp. If he develops severe nausea and/or vomiting, placed back to suction Will follow Medical management per hospitalist Coding Level of Care Code 48132 Diagnoses Constipation K59.00 Nausea and vomiting R11.2 Fracture of femoral neck, left, closed S72.002A
[2024-05-24] MEDS: methylnaltrexone 12 /0.6 mL INJ 12 MG SUBCUT (11:16)
[2024-05-24] MEDS: piperacillin-tazobactam 3.375 GM in sodium chloride 0.9% (plus) 50 ML IV ×2 (11:17→16:21)
--- NOTE | 2024-05-24 11:20 | PC.OT ---
PATIENT REQUESTED TO HOLD OFF THERAPY. HE IS WAITING FOR ENEMA ADMINISTRATION AT THIS TIME.
[2024-05-24] MEDS: magnesium citrate Btl 296 mL PO ×2 (12:43→18:18)
--- NOTE | 2024-05-24 12:54 | PC.NURSE ---
Placement of NG was verified by CXR. Placement also verified by this nurse with air bolus. Mag citrate administered via NG tube at this time. Suction turned off at this time. Will hook suction back up around 1330
[2024-05-24] MEDS: mupirocin oint 22 gm 1 APPLIC NASAL (16:21)
--- NOTE | 2024-05-24 16:58 | XRR_ITS ---
PROCEDURE INFORMATION: Exam: XR Chest Exam date and time: 05/24/2024 5:46 PM Age: 69 years old Clinical indication: Pain; Chest pressure; Prior surgery; Surgery date: 6+ months; Surgery type: Spinal fusion; Additional info: Chest pain TECHNIQUE: Imaging protocol: Radiologic exam of the chest. Views: 1 view. COMPARISON: CR (CHEST, ) 05/24/2024 1:44 AM FINDINGS: Tubes, catheters and devices: Enteric feeding tube present side port above the gastroesophageal junction and for which advancement can be made approximately 6 cm. Lungs: Unremarkable. No consolidation. Pleural spaces: Unremarkable. No pleural effusion. No pneumothorax. Heart/Mediastinum: Unremarkable. No cardiomegaly. Bones/joints: Unremarkable. XR/XR chest 1V portable [id number] IMPRESSION: As above.
--- NOTE | 2024-05-24 17:02 | P.PN_ITS ---
Subjective 2 Subjective: Patient was seen this morning, overnight events noted patient was noted to have increased abdominal distention, nausea, vomiting and noted to have feculent vomit, CT scan of the abdomen pelvis was ordered no bowel obstruction noted, but did show fecal stasis, NG tube placed, NG tube output, is feculent this morning, and overnight, this morning he was seen, tells me he is passing gas from below, has not had a bowel movement abdomen is distended but feels better with the NG tube in place, was nauseous, with NG tube in, he tells me he is spitting up feculent material, Vitals/I&O/Wt Last Vital Signs Temp 97.6 F 05/24/24 12:00 Pulse 90 05/24/24 13:55 Resp 18 05/24/24 16:20 BP 192/96 05/24/24 12:00 Pulse Ox 91 05/24/24 13:48 O2 Del Method Room Air 05/24/24 13:48 O2 Flow Rate 3 05/24/24 08:51 05/24/24 05/24/24 05/24/24 06:59 14:59 22:59 Intake Total 250 / 1641.00 296 / 296 50 / 346 Output Total 750 / 750 200 / 200 700 / 900 Balance -500 / 891.00 96 / 96 -650 / -554 Weight last 48 hrs Weight 85.548 kg Weight 89.539 kg Physical Exam 2 Const: COMMON NORMALS: no acute distress and patient oriented x3 Resp: COMMON NORMALS: normal respiratory effort, No retractions, No use of accessory muscles and clear to auscultation bilaterally AUSCULTATION: clear to auscultation bilaterally Cardio: COMMON NORMALS: regular rate, regular rhythm, S1 normal heart sound present and S2 normal heart sound present RATE: regular rate RHYTHM: r egular rhythm HEART SOUNDS: S1 normal heart sound present and S2 normal heart sound present GI: OTHER: G-tube in place, abdomen soft, distended, diffuse bowel sounds heard, no guarding, no rebound, rigidity, Extremity: COMMON NORMALS: no pedal edema Neuro: COMMON NORMALS: patient oriented x3 Psych: COMMON NORMALS: mental status grossly normal Urinary Catheter Management: Brock: Cath Placed During This Visit: yes, but has since been removed by the nurse Reason for Continuing Indwelling Catheter: Other Urinary Catheter Date of Insertion: 05/21/24 Urinary Catheter Time of Insertion: 15:45 Date Urinary Catheter Removed: 05/22/24 Time Urinary Catheter Discontinued: 05:00 Data 05/24/24 04:32 05/24/24 06:20 Micro: Microbiology 05/22/24 15:00 Urine Culture - Final Urine,Clean Catch A&P Assessment and plan (1) Fracture of femoral neck, left, closed: - Status post surgical intervention -Will monitor -PT OT -Pain control, anticoagulation as per orthopedic team (2) Leukocytosis: - Concerns for possible UTI, Zosyn (3) Acute kidney injury: - IV fluids (4) Constipation, acute: CT/CT abdomen pelvis wo con [id number] IMPRESSION: 1. No acute abnormality. 2. Hepatic parenchymal disease with splenomegaly. 3. Stable infrarenal abdominal aortic aneurysm. 4. Fecal stasis. 5. Postoperative changes from recent left total hip replacement. Plan -Keep n.p.o. -IV fluids -NG tube in place, low intermittent suction -General Has been consulted -Broaden antibiotic coverage to Zosyn -Started on bowel regimen by general surgery -Monitor for bowel movement -Hold all p.o. medications -Start IV Dilaudid -Start IV as needed blood pressure medications -Start clonidine patch Plan History of alcoholism, substance abuse, has been sober for 7 years On treatment for hepatitis B, Entecavir, advised him to bring medication from home COPD not in exacerbation Current smoker Hypokalemia, replace potassium p.o. Attestations 2 Medical Necessity Statement*: Patient requires hospitalization for acute constipation, requiring NG tube, feculent output, feculent vomit, requiring bowel regimen General Surgery consultation IV antibiotics holding all p.o. blood pressure medication switching to IV pain and blood pressure medication Diagnoses Fracture of femoral neck, left, closed S72.002A Leukocytosis D72.829 Acute kidney injury N17.9 Constipation, acute K59.00
[2024-05-24] MEDS: cloNIDine 0.2 mg/24 hr Patch 1 PATCH TRANSDERMA (17:30)
--- NOTE | 2024-05-24 18:25 | PC.NURSE ---
Per PCXR, NG advanced 6cm. Mag citrate given via NG. Suction turned off.
[2024-05-25] VITALS (14 sets, daily range): BP systolic 125–180; BP diastolic 67–90; PULSE 79–103; RESP 15–20; TEMP 36.4–36.8; O2SAT 90–96
[2024-05-25] MEDS: ondansetron 2 mg/ML SDV 2 mL 4 MG IVP ×2 (00:59→11:06)
[2024-05-25] MEDS: HYDROmorphone 1 mg/mL INJ 1 mL 0.5 MG IVP ×4 (00:59→21:08)
[2024-05-25] MEDS: piperacillin-tazobactam 3.375 GM in sodium chloride 0.9% (plus) 50 ML IV ×3 (01:00→18:10)
[2024-05-25] MEDS: ipratropium-albuterol 3 mL Neb INHALATION ×4 (02:20→20:20)
[2024-05-25 04:41] LABS: Basophils # 0.1 10^3/uL (0.0-0.1); Basophils % 0.7 %; Eosinophils # 0.3 10^3/uL (0.0-0.8); Eosinophils % 2.4 %; Hematocrit 45.4 % (37-53); Lymphocytes % 8.6 %; Mean Corpuscular HGB Conc 30.2 g/dL (30-55); Mean Corpuscular Hemoglobin 29.2 pg (27-33); Mean Corpuscular Volume 96.8 fl (82-101); Mean Platelet Volume 10.7 fL (7.4-10.4); Monocytes % 8.2 %; Neutrophils # 9.55 10^3/uL (1.8-7.7); Neutrophils % 79.4 %; Nucleated Red Blood Cells % 0 %; Platelet Count 252 10^3/cmm (157-399); Red Blood Count 4.69 10^6/uL (3.85-5.65); Red Cell Distribution Width 14.1 % (12.1-15.1); White Blood Count 12.04 10^3/uL (3.29-11.43)
--- NOTE | 2024-05-25 05:54 | XRR_ITS ---
PROCEDURE INFORMATION: Exam: XR Chest Exam date and time: 05/25/2024 6:20 AM Age: 69 years old Clinical indication: Device placement; Ng tube; Prior surgery; Surgery date: 6+ months; Surgery type: Spinal fusion; Patient HX: Recheck of ng placement; Additional info: Ng tube placement TECHNIQUE: Imaging protocol: Radiologic exam of the chest. Views: 1 view. COMPARISON: CR (CHEST, ) 05/24/2024 5:46 PM FINDINGS: Tubes, catheters and devices: Enteric tube with subdiaphragmatic side port and tip not visualized. Lungs: Hypoinflation with bronchovascular crowding. Diffuse interstitial prominence. Consolidation Pleural spaces: No pleural effusion. No pneumothorax. Heart/Mediastinum: Cardiomegaly. Vasculature: Tortuous calcified aorta. Bones/joints: Degenerative change of the spine and shoulders. Partially visualized posterior spinal fixation of the lower thoracic spine. XR/XR chest 1V portable [id number] IMPRESSION: Diffuse interstitial prominence which in the setting of cardiomegaly may represent cardiogenic edema.
--- NOTE | 2024-05-25 08:25 | XRR_ITS ---
PROCEDURE INFORMATION: Exam: XR Chest Exam date and time: 05/25/2024 8:52 AM Age: 69 years old Clinical indication: Device placement; Ng tube; Additional info: Ng tube placement TECHNIQUE: Imaging protocol: Radiologic exam of the chest. Views: 1 view. COMPARISON: CR (CHEST, ) 05/25/2024 6:20 AM FINDINGS: Tubes, catheters and devices: Enteric tube with side port and tip of the left upper quadrant. Lungs: Redemonstrated interstitial prominence. No focal consolidation. Pleural spaces: Unremarkable. No pleural effusion. No pneumothorax. Heart/Mediastinum: Cardiomegaly. Vasculature: Tortuous calcified aorta. Bones/joints: Degenerative change of the spine and shoulders. Partially visualized posterior spinal fixation of the lower thoracic spine. XR/XR chest 1V portable [id number] IMPRESSION: 1. Enteric tube with side port and tip of the left upper quadrant. 2. Stable pulmonary exam.
[2024-05-25] MEDS: budesonide 0.5 mg/2 mL Neb 0.25 MG INHALATION ×2 (08:59→20:20)
[2024-05-25 09:28] LABS: Alanine Aminotransferase 11 U/L (0-41); Albumin Level 2.5 g/dL (3.5-5.2); Alkaline Phosphatase 56 U/L (40-130); Anion Gap 16.7 (5-19); Aspartate Amino Transferase 32 U/L (0-40); Blood Urea Nitrogen 27 mg/dL (8-23); Calcium 8.7 mg/dL (8.5-10.5); Carbon Dioxide 25 mmol/L (22-29); Chloride 105 mmol/L (98-107); Creatinine Clr Calc Pharmacy 43.6557; Globulin 3.6 g/dL (1.3-4.6); Glomerular Filtration Rate 40.2 mL/min (90-130); Glucose 104 mg/dL (65-115); Magnesium 2.5 mg/dL (1.7-2.3); Osmolality Calculated 301 mOsm/kg (285-295); Phosphorus 3.3 mg/dL (2.5-4.5); Potassium 3.7 mmol/L (3.5-5.1); Sodium 143 mmol/L (136-145); Total Bilirubin 0.4 mg/dL (0.15-1.2); Total Protein 6.1 g/dL (6.6-8.7)
[2024-05-25] MEDS: enoxaparin 30 mg/0.3 mL Syringe SUBCUT (10:02)
[2024-05-25] MEDS: nicotine 21 mg Patch 1 PATCH TRANSDERMA (10:02)
[2024-05-25] MEDS: sodium chloride 0.9% 1,000 ML 50 ML IV (10:03)
--- NOTE | 2024-05-25 13:00 | P.PN_ITS ---
Subjective 2 Subjective: Patient had a bowel movement with a fleets enema yesterday and then had another bowel movement with the magnesium citrate. This morning he became nauseous and was hooked back up to suction. In the past 5 hours he is put out about 600 cc of somewhat feculent gastric content. Denies any abdominal pain Vitals/I&O/Wt Last Vital Signs Temp 97.6 F 05/25/24 12:00 Pulse 92 05/25/24 12:00 Resp 16 05/25/24 12:00 BP 171/87 05/25/24 12:00 Pulse Ox 95 05/25/24 12:00 O2 Del Method Room Air 05/25/24 12:00 O2 Flow Rate 3 05/24/24 08:51 05/24/24 05/25/24 05/25/24 22:59 06:59 14:59 Intake Total 806.25 / 1102.25 50 / 1152.25 1240 / 1240 Output Total 1000 / 1200 500 / 1700 400 / 400 Balance -193.75 / -97.75 -450 / -547.75 840 / 840 Weight last 48 hrs Weight 181 lb Weight 188 lb 9.6 oz Physical Exam 2 Narrative: General: No acute distress, awake alert and oriented x 3 Abdomen: Soft, nontender, nondistended Urinary Catheter Management: Brock: Cath Placed During This Visit: yes, but has since been removed by the nurse Reason for Continuing Indwelling Catheter: Other Urinary Catheter Date of Insertion: 05/21/24 Urinary Catheter Time of Insertion: 15:45 Date Urinary Catheter Removed: 05/22/24 Time Urinary Catheter Discontinued: 05:00 Data 05/25/24 03:33 05/25/24 08:46 Micro: Microbiology 05/22/24 15:00 Urine Culture - Final Urine,Clean Catch A&P Assessment and plan (1) Constipation: (2) Nausea and vomiting: (3) Fracture of femoral neck, left, closed: Plan Status post left femoral hemiarthroplasty Relistor given yesterday Fleets enema again today Keep nasogastric tube on suction for now. At 4 PM, place 1 bottle of magnesium citrate in the NG tube and then clamp. If he develops severe nausea and/or vomiting, placed back to suction Will follow Medical management per hospitalist Attestations 2 Medical Necessity Statement*: Per primary Coding Level of Care Code 64854 Diagnoses Constipation K59.00 Nausea and vomiting R11.2 Fracture of femoral neck, left, closed S72.002A
[2024-05-25] MEDS: Fleet Enema 133 mL Enema PR (13:45)
--- NOTE | 2024-05-25 15:50 | P.PN_ITS ---
Subjective 2 Subjective: Patient was seen this morning, he did have a small bowel movement this morning, but continues to have feculent drainage from NG tube he is abdominal pain is improving bloating is improving passing gas from below Vitals/I&O/Wt Last Vital Signs Temp 97.6 F 05/25/24 12:00 Pulse 97 05/25/24 14:41 Resp 18 05/25/24 14:41 BP 171/87 05/25/24 12:00 Pulse Ox 95 05/25/24 14:41 O2 Del Method Room Air 05/25/24 14:41 O2 Flow Rate 3 05/24/24 08:51 05/25/24 05/25/24 05/25/24 06:59 14:59 22:59 Intake Total 50 / 1152.25 1290 / 1290 Output Total 500 / 1700 400 / 400 Balance -450 / -547.75 890 / 890 Weight last 48 hrs Weight 82.1 kg Weight 85.548 kg Physical Exam 2 Const: COMMON NORMALS: no acute distress and patient oriented x3 Resp: COMMON NORMALS: normal respiratory effort, No retractions, No use of accessory muscles and clear to auscultation bilaterally AUSCULTATION: clear to auscultation bilaterally Cardio: COMMON NORMALS: regular rate, regular rhythm, S1 normal heart sound present and S2 normal heart sound present RATE: regular rate RHYTHM: r egular rhythm HEART SOUNDS: S1 normal heart sound present and S2 normal heart sound present GI: COMMON NORMALS: Normal to inspection, nondistended, normoactive bowel sounds present and non-tender Extremity: COMMON NORMALS: no pedal edema Neuro: COMMON NORMALS: patient oriented x3 Psych: COMMON NORMALS: mental status grossly normal Urinary Catheter Management: Brock: Cath Placed During This Visit: yes, but has since been removed by the nurse Reason for Continuing Indwelling Catheter: Other Urinary Catheter Date of Insertion: 05/21/24 Urinary Catheter Time of Insertion: 15:45 Date Urinary Catheter Removed: 05/22/24 Time Urinary Catheter Discontinued: 05:00 Data 05/25/24 03:33 05/25/24 08:46 Micro: Microbiology 05/22/24 15:00 Urine Culture - Final Urine,Clean Catch A&P Assessment and plan (1) Fracture of femoral neck, left, closed: - Status post surgical intervention -Will monitor -PT OT -Pain control, anticoagulation as per orthopedic team (2) Leukocytosis: - Concerns for possible UTI, Zosyn (3) Acute kidney injury: - IV fluids (4) Constipation, acute: CT/CT abdomen pelvis wo con [id number] IMPRESSION: 1. No acute abnormality. 2. Hepatic parenchymal disease with splenomegaly. 3. Stable infrarenal abdominal aortic aneurysm. 4. Fecal stasis. 5. Postoperative changes from recent left total hip replacement. Plan -Keep n.p.o. -IV fluids -NG tube in place, low intermittent suction -Receiving bowel regimen -General Surgery has been consulted -Broaden antibiotic coverage to Zosyn -Monitor bowel movements, monitor NG tube output -Hold all p.o. medications -Started IV Dilaudid -Started IV as needed blood pressure medications -Started clonidine patch Plan History of alcoholism, substance abuse, has been sober for 7 years On treatment for hepatitis B, Entecavir, advised him to bring medication from home COPD not in exacerbation Current smoker Hypokalemia, replace potassium p.o. Attestations 2 Medical Necessity Statement*: Patient requires hospitalization for constipation, persistent feculent output from NG tube, requiring surgical consultation, bowel regimen, IV fluids Diagnoses Fracture of femoral neck, left, closed S72.002A Leukocytosis D72.829 Acute kidney injury N17.9 Constipation, acute K59.00
[2024-05-25] MEDS: magnesium citrate Btl 296 mL PO (18:10)
[2024-05-26] VITALS (13 sets, daily range): BP systolic 129–187; BP diastolic 74–95; PULSE 69–111; RESP 15–20; TEMP 36.6–37.3; O2SAT 90–95
[2024-05-26] MEDS: sodium chloride 0.9% 1,000 ML 50 ML IV (01:15)
[2024-05-26] MEDS: HYDROmorphone 1 mg/mL INJ 1 mL 0.5 MG IVP (01:15)
[2024-05-26] MEDS: piperacillin-tazobactam 3.375 GM in sodium chloride 0.9% (plus) 50 ML IV (01:15)
[2024-05-26] MEDS: ipratropium-albuterol 3 mL Neb INHALATION ×3 (03:19→21:41)
[2024-05-26 03:58] LABS: Basophils # 0.1 10^3/uL (0.0-0.1); Basophils % 0.6 %; Eosinophils # 0.4 10^3/uL (0.0-0.8); Eosinophils % 2.8 %; Hematocrit 42.4 % (37-53); Lymphocytes # 1.5 10^3/uL (0.8-4.8); Lymphocytes % 11.7 %; Mean Corpuscular HGB Conc 31.6 g/dL (30-55); Mean Corpuscular Hemoglobin 28.9 pg (27-33); Mean Corpuscular Volume 91.4 fl (82-101); Mean Platelet Volume 9.9 fL (7.4-10.4); Monocytes % 8.2 %; Neutrophils # 9.48 10^3/uL (1.8-7.7); Neutrophils % 75.7 %; Nucleated Red Blood Cells % 0 %; Platelet Count 319 10^3/cmm (157-399); Red Blood Count 4.64 10^6/uL (3.85-5.65); White Blood Count 12.52 10^3/uL (3.29-11.43)
[2024-05-26 04:16] LABS: Alanine Aminotransferase 14 U/L (0-41); Albumin Level 2.7 g/dL (3.5-5.2); Alkaline Phosphatase 54 U/L (40-130); Anion Gap 17.2 (5-19); Aspartate Amino Transferase 40 U/L (0-40); Blood Urea Nitrogen 24 mg/dL (8-23); Calcium 8.4 mg/dL (8.5-10.5); Carbon Dioxide 25 mmol/L (22-29); Chloride 101 mmol/L (98-107); Creatinine Clr Calc Pharmacy 46.3842; Globulin 3.3 g/dL (1.3-4.6); Glomerular Filtration Rate 43.1 mL/min (90-130); Glucose 86 mg/dL (65-115); Magnesium 2.5 mg/dL (1.7-2.3); Osmolality Calculated 293 mOsm/kg (285-295); Phosphorus 3.4 mg/dL (2.5-4.5); Potassium 3.2 mmol/L (3.5-5.1); Sodium 140 mmol/L (136-145); Total Bilirubin 0.4 mg/dL (0.15-1.2)
[2024-05-26] MEDS: nicotine 21 mg Patch 1 PATCH TRANSDERMA (09:38)
[2024-05-26] MEDS: enoxaparin 30 mg/0.3 mL Syringe SUBCUT (09:38)
[2024-05-26] MEDS: mupirocin oint 22 gm 1 APPLIC NASAL ×2 (09:39→17:32)
[2024-05-26] MEDS: iron polysaccharide complex 150 mg Capsule PO ×2 (11:26→17:31)
[2024-05-26] MEDS: bisacodyl 5 mg Tablet 10 MG PO (11:26)
[2024-05-26] MEDS: amlodipine 5 mg Tablet PO ×2 (11:26→17:30)
[2024-05-26] MEDS: metoprolol tartrate 25 mg Tablet PO (11:27)
[2024-05-26] MEDS: calcium carb-vit d 600mg/400unit 1 Tablet 1 EACH PO (11:27)
[2024-05-26] MEDS: multivitamin therapeutic Tablet 1 TAB PO (11:27)
[2024-05-26] MEDS: tamsulosin 0.4 mg Capsule PO (11:27)
[2024-05-26] MEDS: polyethylene glycol 3350 Pkt 17 gm PO ×2 (11:27→17:30)
[2024-05-26] MEDS: chlorhexidine gluconate 0.12% Btl 473 mL 30 ML MUCOUS MEM ×3 (11:30→21:32)
[2024-05-26] MEDS: chlorthalidone 25 mg Tablet 12.5 MG PO (11:32)
[2024-05-26] MEDS: acetaminophen 325 mg Tablet 650 MG PO (12:56)
--- NOTE | 2024-05-26 13:31 | PC.SOCIAL ---
IMM Update pg 2 of IMM Updated and reviewed w/ patient. Copy provided and copy dated, initialed and placed in chart.
--- NOTE | 2024-05-26 14:33 | P.PN_ITS ---
Subjective 2 Subjective: Examined NG tube came out this morning. He had multiple bowel movements with enema and magnesium citrate yesterday. Denies any nausea or vomiting Vitals/I&O/Wt Last Vital Signs Temp 97.9 F 05/26/24 11:46 Pulse 69 05/26/24 14:18 Resp 18 05/26/24 14:18 BP 172/89 05/26/24 11:46 Pulse Ox 95 05/26/24 14:18 O2 Del Method Room Air 05/26/24 14:18 O2 Flow Rate 3 05/24/24 08:51 05/25/24 05/26/24 05/26/24 22:59 06:59 14:59 Intake Total 530 / 1820 810 / 2630 450 / 450 Output Total 550 / 950 725 / 725 Balance 530 / 1420 260 / 1680 -275 / -275 Weight last 48 hrs Weight 182 lb Weight 181 lb Physical Exam 2 Narrative: General: No acute distress, awake alert and oriented x 3 Abdomen: Soft, nontender, nondistended Urinary Catheter Management: Brock: Cath Placed During This Visit: yes, but has since been removed by the nurse Reason for Continuing Indwelling Catheter: Other Urinary Catheter Date of Insertion: 05/21/24 Urinary Catheter Time of Insertion: 15:45 Date Urinary Catheter Removed: 05/22/24 Time Urinary Catheter Discontinued: 05:00 Data 05/26/24 03:30 05/26/24 03:30 A&P Assessment and plan (1) Constipation: Plan MiraLAX 17 g twice daily Dulcolax daily Clear liquid diet Will reexamine tomorrow and likely advance diet Medical management per hospitalist Attestations 2 Medical Necessity Statement*: Per primary Coding Level of Care Code 25571 Diagnoses Constipation K59.00
[2024-05-26] MEDS: lisinopril 20 mg Tablet PO (17:30)
--- NOTE | 2024-05-26 17:53 | P.PN_ITS ---
Subjective 2 Subjective: Patient was seen this morning, NG tube was removed overnight, he tells me he has had 2 large bowel movements early this morning, and several overnight, no nausea, no vomiting, no abdominal pain, no fevers, chills, tells me he was quite upset this morning, but he apologizes, discussed continued bowel regimen, he is agreeable to go to [facility] facility Vitals/I&O/Wt Last Vital Signs Temp 98.3 F 05/26/24 16:00 Pulse 74 05/26/24 16:00 Resp 15 05/26/24 16:00 BP 172/83 05/26/24 16:00 Pulse Ox 93 05/26/24 16:00 O2 Del Method Room Air 05/26/24 16:00 O2 Flow Rate 3 05/24/24 08:51 05/26/24 05/26/24 05/26/24 06:59 14:59 22:59 Intake Total 810 / 2630 450 / 450 720 / 1170 Output Total 550 / 950 725 / 725 Balance 260 / 1680 -275 / -275 720 / 445 Weight last 48 hrs Weight 82.554 kg Weight 82.1 kg Physical Exam 2 Const: COMMON NORMALS: no acute distress and patient oriented x3 Resp: COMMON NORMALS: normal respiratory effort, No retractions, No use of accessory muscles and clear to auscultation bilaterally AUSCULTATION: clear to auscultation bilaterally Cardio: COMMON NORMALS: regular rate, regular rhythm, S1 normal heart sound present and S2 normal heart sound present RATE: regular rate RHYTHM: r egular rhythm HEART SOUNDS: S1 normal heart sound present and S2 normal heart sound present GI: COMMON NORMALS: Normal to inspection, nondistended, normoactive bowel sounds present and non-tender Extremity: COMMON NORMALS: no pedal edema Neuro: COMMON NORMALS: patient oriented x3 Psych: COMMON NORMALS: mental status grossly normal Urinary Catheter Management: Brock: Cath Placed During This Visit: yes, but has since been removed by the nurse Reason for Continuing Indwelling Catheter: Other Urinary Catheter Date of Insertion: 05/21/24 Urinary Catheter Time of Insertion: 15:45 Date Urinary Catheter Removed: 05/22/24 Time Urinary Catheter Discontinued: 05:00 Data 05/26/24 03:30 05/26/24 03:30 A&P Assessment and plan (1) Fracture of femoral neck, left, closed: - Status post surgical intervention -Will monitor -PT OT -Pain control, anticoagulation as per orthopedic team (2) Leukocytosis: - Concerns for possible UTI, Augmentin (3) Acute kidney injury: - Completed (4) Constipation, acute: CT/CT abdomen pelvis wo con [id number] IMPRESSION: 1. No acute abnormality. 2. Hepatic parenchymal disease with splenomegaly. 3. Stable infrarenal abdominal aortic aneurysm. 4. Fecal stasis. 5. Postoperative changes from recent left total hip replacement. -Status post several bowel movements, no recurrent nausea, vomiting or abdominal pain -NG tube removed Plan -Continue bowel regimen, Dulcolax once daily, MiraLAX twice daily -Receiving bowel regimen -General Surgery has been consulted -Monitor bowel movements - Plan History of alcoholism, substance abuse, has been sober for 7 years On treatment for hepatitis B, Entecavir, advised him to bring medication from home COPD not in exacerbation Current smoker Hypokalemia, replace potassium p.o. Attestations 2 Medical Necessity Statement*: Patient requires hospitalization for severe constipation, resolving Diagnoses Fracture of femoral neck, left, closed S72.002A Leukocytosis D72.829 Acute kidney injury N17.9 Constipation, acute K59.00
[2024-05-26] MEDS: oxyCODONE-APAP 5-325 mg Tablet 1 TAB PO (18:08)
[2024-05-26] MEDS: amoxicillin-clav 875-125 mg Tablet 1 TAB PO (21:32)
[2024-05-26] MEDS: budesonide 0.5 mg/2 mL Neb 0.25 MG INHALATION (21:41)
[2024-05-27] VITALS (9 sets, daily range): BP systolic 152–176; BP diastolic 77–93; PULSE 69–78; RESP 16–18; TEMP 36.5–36.8; O2SAT 92–95
[2024-05-27 05:46] LABS: Basophils # 0.1 10^3/uL (0.0-0.1); Basophils % 0.7 %; Eosinophils # 0.6 10^3/uL (0.0-0.8); Eosinophils % 5.1 %; Hematocrit 41.5 % (37-53); Lymphocytes # 1.6 10^3/uL (0.8-4.8); Lymphocytes % 13.4 %; Mean Corpuscular HGB Conc 31.8 g/dL (30-55); Mean Corpuscular Hemoglobin 28.6 pg (27-33); Mean Corpuscular Volume 89.8 fl (82-101); Mean Platelet Volume 9.5 fL (7.4-10.4); Monocytes # 0.9 10^3/uL (0.2-0.9); Monocytes % 7.8 %; Neutrophils # 8.69 10^3/uL (1.8-7.7); Nucleated Red Blood Cells % 0 %; Platelet Count 321 10^3/cmm (157-399); Red Blood Count 4.62 10^6/uL (3.85-5.65); Red Cell Distribution Width 13.6 % (12.1-15.1); White Blood Count 12.06 10^3/uL (3.29-11.43)
[2024-05-27 06:01] LABS: Alanine Aminotransferase 16 U/L (0-41); Albumin Level 2.6 g/dL (3.5-5.2); Alkaline Phosphatase 54 U/L (40-130); Anion Gap 15.1 (5-19); Aspartate Amino Transferase 37 U/L (0-40); Blood Urea Nitrogen 16 mg/dL (8-23); Calcium 8.4 mg/dL (8.5-10.5); Carbon Dioxide 25 mmol/L (22-29); Chloride 99 mmol/L (98-107); Creatinine Clr Calc Pharmacy 53.1001; Globulin 3.2 g/dL (1.3-4.6); Glomerular Filtration Rate 50.2 mL/min (90-130); Glucose 100 mg/dL (65-115); Osmolality Calculated 283 mOsm/kg (285-295); Potassium 3.1 mmol/L (3.5-5.1); Sodium 136 mmol/L (136-145); Total Bilirubin 0.4 mg/dL (0.15-1.2); Total Protein 5.8 g/dL (6.6-8.7)
[2024-05-27] MEDS: oxyCODONE-APAP 5-325 mg Tablet 1 TAB PO ×2 (06:22→11:17)
[2024-05-27] MEDS: ipratropium-albuterol 3 mL Neb INHALATION (07:35)
[2024-05-27] MEDS: budesonide 0.5 mg/2 mL Neb 0.25 MG INHALATION (07:35)
[2024-05-27] MEDS: CITALOPRAM 40 MG 1 EACH PO (08:27)
[2024-05-27] MEDS: ENTECAVIR 1 MG 1 EACH PO (08:27)
[2024-05-27] MEDS: metoprolol tartrate 25 mg Tablet PO (08:28)
[2024-05-27] MEDS: bisacodyl 5 mg Tablet 10 MG PO (08:28)
[2024-05-27] MEDS: amoxicillin-clav 875-125 mg Tablet 1 TAB PO (08:28)
[2024-05-27] MEDS: polyethylene glycol 3350 Pkt 17 gm PO (08:29)
[2024-05-27] MEDS: enoxaparin 30 mg/0.3 mL Syringe SUBCUT (08:29)
[2024-05-27] MEDS: calcium carb-vit d 600mg/400unit 1 Tablet 1 EACH PO (08:29)
[2024-05-27] MEDS: fenofibrate 145 mg Tablet PO (08:29)
[2024-05-27] MEDS: lisinopril 20 mg Tablet PO (08:29)
[2024-05-27] MEDS: nicotine 21 mg Patch 1 PATCH TRANSDERMA (08:29)
[2024-05-27] MEDS: iron polysaccharide complex 150 mg Capsule PO (08:29)
[2024-05-27] MEDS: chlorhexidine gluconate 0.12% Btl 473 mL 30 ML MUCOUS MEM (08:31)
[2024-05-27] MEDS: chlorthalidone 25 mg Tablet 12.5 MG PO (08:36)
[2024-05-27] MEDS: potassium chloride ER 20 mEq Tablet 40 MEQ PO (10:26)
[2024-05-27] MEDS: simethicone 80 mg Chew PO (11:05)
--- NOTE | 2024-05-27 11:27 | P.DS_ITS ---
Discharge Providers Date of Admission: 05/21/24 05:35 Date of Discharge: May 27, 2024 Attending Provider at Admission: Kendra Seay MD Attending Provider at Discharge: Keon Stock MD Diagnoses at Discharge Discharge Diagnosis (1) Fracture of femoral neck, left, closed: Status: Resolved (2) Leukocytosis: Status: Resolved (3) Acute kidney injury: Status: Resolved (4) Constipation, acute: Status: Acute Reason for Visit Reason for Visit: R hip pain post fall Hospital Course Hospital Course This is a 69-year-old male with a past medical history of hepatitis B, COPD who presents [facility] for a fall Patient was admitted to [facility] for left femoral neck fracture, status post surgical intervention, tolerated procedure well discharged to care home facility Due to leukocytosis concerns for UTI, management of antibiotic therapy overall clinically improved, resolved Patient's hospitalization was complicated by postoperative acute severe constipation, had NG tube placed, general surgery consulted, received bowel regimen, overall clinically improved, labs, pain resolved, having bowel movements on discharge, tolerating p.o. intake. Will be discharged on a bowel regimen as outpatient Physical Exam Const: COMMON NORMALS: no acute distress and patient oriented x3 Resp: COMMON NORMALS: normal respiratory effort, No retractions, No use of accessory muscles and clear to auscultation bilaterally AUSCULTATION: clear to auscultation bilaterally Cardio: COMMON NORMALS: regular rate, regular rhythm, S1 normal heart sound present and S2 normal heart sound present RATE: regular rate RHYTHM: regular rhythm HEART SOUNDS: S1 normal heart sound present and S2 normal heart sound present GI: COMMON NORMALS: Normal to inspection, nondistended, normoactive bowel sounds present and non-tender Extremity: COMMON NORMALS: no pedal edema Neuro: COMMON NORMALS: patient oriented x3 Psych: COMMON NORMALS: mental status grossly normal Urinary Catheter Management: Brock: Cath Placed During This Visit: yes, but has since been removed by the nurse Reason for Continuing Indwelling Catheter: Other Urinary Catheter Date of Insertion: 05/21/24 Urinary Catheter Time of Insertion: 15:45 Date Urinary Catheter Removed: 05/22/24 Time Urinary Catheter Discontinued: 05:00 Discharge Data Studies Completed and Pending Completed Studies During Hospitalization Category Date Time Status CT abdomen pelvis wo con [id number] Stat Cat Scan 05/23/24 19:[address] pelvis wo con [id number] Stat Cat Scan 05/21/24 05:02 Completed XR KUB portable [id number] Routine Exams 05/24/24 08:10 Completed XR KUB portable [id number] Stat Exams 05/23/24 17:50 Completed XR chest 1V portable [id number] Stat Exams 05/21/24 05:02 Completed XR chest 1V portable [id number] Stat Exams 05/23/24 20:47 Completed XR chest 1V portable [id number] Stat Exams 05/24/24 01:39 Completed XR chest 1V portable [id number] Stat Exams 05/24/24 16:58 Completed XR chest 1V portable [id number] Stat Exams 05/25/24 05:54 Completed XR chest 1V portable [id number] Urgent Exams 05/25/24 08:25 Completed XR hip LT 2-3V wo/w pel* [id number] Routine Exams 05/21/24 17:45 Completed XR hip LT 2-3V wo/w pel* [id number] Stat Exams 05/21/24 04:51 Completed US kidney bilateral [US renal BI* [id number]] Routine Ultrasound 05/22/24 09:16 Completed Pending at discharge Category Date Time Status C.Diff PCR (Lab) Routine Lab 05/25/24 15:52 Uncollected Radiology Impressions Pelvis CT 05/21/24 05:02 IMPRESSION: Acute nondisplaced left femoral neck fracture deformity Hip/Pelvis X-Ray 05/21/24 17:45 IMPRESSION: Status post total left hip arthroplasty in anatomic alignment. Renal Ultrasound 05/22/24 09:16 IMPRESSION: Normal renal ultrasound. Abdomen/Pelvis CT 05/23/24 19:31 IMPRESSION: 1. No acute abnormality. 2. Hepatic parenchymal disease with splenomegaly. 3. Stable infrarenal abdominal aortic aneurysm. 4. Fecal stasis. 5. Postoperative changes from recent left total hip replacement. KUB X-Ray 05/24/24 08:10 IMPRESSION: As above. Chest X-Ray 05/25/24 08:25 IMPRESSION: 1. Enteric tube with side port and tip of the left upper quadrant. 2. Stable pulmonary exam. Laboratory Results WBC 12.06 10^3/uL (3.29-11.43) H 05/27/24 05:28 RBC 4.62 10^6/uL (3.85-5.65) 05/27/24 05:28 Hgb 13.20 g/dL (11.27-16.99) 05/27/24 05:28 Hct 41.5 % (37-53) 05/27/24 05:28 MCV 89.8 fl (82-101) 05/27/24 05:28 MCH 28.6 pg (27-33) 05/27/24 05: MCHC 31.8 g/dL (30-55) 05/27/24 05:28 RDW 13.6 % (12.1-15.1) 05/27/24 05:28 Plt Count 321 10^3/cmm (157-399) 05/27/24 05:28 MPV 9.5 fL (7.4-10.4) 05/27/24 05:28 Neut % (Auto) 72.0 % 05/27/24 05:28 Lymph % (Auto) 13.4 % 05/27/24 05:28 [place] % (Auto) 7.8 % 05/27/24 05:28 Eos % (Auto) 5.1 % 05/27/24 05:28 Baso % (Auto) 0.7 % 05/27/24 05:28 Neut # (Auto) 8.69 10^3/uL (1.8-7.7) H 05/27/24 05:28 Lymph # (Auto) 1.6 10^3/uL (0.8-4.8) 05/27/24 05:28 [place] # (Auto) 0.9 10^3/uL (0.2-0.9) 05/27/24 05:28 Eos # (Auto) 0.6 10^3/uL (0.0-0.8) 05/27/24 05:28 Baso # (Auto) 0.1 10^3/uL (0.0-0.1) 05/27/24 05:28 Nucleated RBC % (auto) 0 % 05/27/24 05:28 Nucleated RBCs # 0.0 /100WBC 05/27/24 05:28 PT 12.10 SECONDS (12.1-14.9) 05/21/24 04:56 INR 0.84 (0.8-1.2) 05/21/24 04:56 APTT 27.5 SECONDS (23.9-36.7) 05/21/24 04:56 Sodium 136 mmol/L (136-145) 05/27/24 05:28 Potassium 3.1 mmol/L (3.5-5.1) L 05/27/24 05:28 Chloride 99 mmol/L (98-107) 05/27/24 05:28 Carbon Dioxide 25 mmol/L (22-29) 05/27/24 05:28 Anion Gap 15.1 (5-19) 05/27/24 05:28 BUN 16 mg/dL (8-23) 05/27/24 05:28 Creatinine 1.4 mg/dL (0.7-1.2) H 05/27/24 05:28 GFR Calculation 50.2 mL/min (90-130) L 05/27/24 05:28 Glucose 100 mg/dL (65-115) 05/27/24 05:28 Calculated Osmolality 283 mOsm/kg (285-295) L 05/27/24 05:28 Calcium 8.4 mg/dL (8.5-10.5) L 05/27/24 05:28 Phosphorus 3.0 mg/dL (2.5-4.5) 05/27/24 05:28 Magnesium 2.0 mg/dL (1.7-2.3) 05/27/24 05:28 Total Bilirubin 0.4 mg/dL (0.15-1.2) 05/27/24 05:28 Direct Bilirubin 0.20 mg/dL (0.00-0.30) 05/24/24 06:20 AST 37 U/L (0-40) 05/27/24 05:28 ALT 16 U/L (0-41) 05/27/24 05:28 Alkaline Phosphatase 54 U/L (40-130) 05/27/24 05:28 Ammonia 38 umol/L (16-60) 05/23/24 23:12 Creatine Kinase 616 U/L (39-308) H* 05/22/24 05:41 Total Protein 5.8 g/dL (6.6-8.7) L 05/27/24 05:28 Albumin 2.6 g/dL (3.5-5.2) L 05/27/24 05:28 Globulin 3.2 g/dL (1.3-4.6) 05/27/24 05:28 Lipase 17 U/L (13-60) 05/24/24 06:20 Urine Color Yellow (Yellow) 05/22/24 15:00 Urine Appearance Clear (CLEAR) 05/22/24 15:00 Urine pH 6.0 (5-7) 05/22/24 15:00 Ur Specific [place] 1.021 (1.005-1.030) 05/22/24 15:00 Urine Protein 4+ (Negative) A 05/22/24 15:00 Urine Glucose (UA) Trace (Normal) H 05/22/24 15:00 Urine Ketones Negative (Negative) 05/22/24 15:00 Urine Blood 2+ (Negative) A 05/22/24 15:00 Urine Nitrate Negative (Negative) 05/22/24 15:00 Urine Bilirubin Negative (Negative) 05/22/24 15:00 Urine Urobilinogen 0.2 mg/dL (Negative) 05/22/24 15:00 Ur Leukocyte Esterase Negative (Negative) 05/22/24 15:00 Urine RBC 6-10 /hpf (0-2) 05/22/24 15:00 Urine WBC 21-50 /hpf (0-5) H 05/22/24 15:00 Ur Squamous Epith Cells 0-5 /hpf (0-5) 05/22/24 15:00 Amorphous Sediment Not Reportable 05/22/24 15:00 Urine Bacteria None seen /hpf (NONE) 05/22/24 15:00 Hyaline Casts 8.26 /lpf 05/22/24 15:00 Fine Granular Casts 0-4 /lpf H 05/22/24 15:00 Urine Opiates Screen Positive ng/mL (Negative) H 05/21/24 10:05 Ur Barbiturates Screen Negative ng/mL (Negative) 05/21/24 10:05 Ur Phencyclidine Scrn Negative ng/mL (Negative) 05/21/24 10:05 Ur Amphetamines Screen Negative ng/mL (Negative) 05/21/24 10:05 U Benzodiazepines Scrn Negative ng/mL (Negative) 05/21/24 10:05 Urine Cocaine Screen Negative ng/mL (Negative) 05/21/24 10:05 U Marijuana (THC) Screen Positive ng/mL (Negative) H 05/21/24 10:05 Ethyl Alcohol < 10 mg/dL (0-10) 05/21/24 04:56 Coronavirus 229E (PCR) Cancelled 05/21/24 10:27 SARS-CoV-2 (PCR) Cancelled 05/21/24 10:27 SARS-CoV-2 Ag (Rapid) negative (Negative) 05/21/24 10:27 Blood Type O Positive 05/21/24 10:28 Rho(D) Type Rh positive 05/21/24 10:28 Antibody Screen Negative 05/21/24 10:28 Vitals Last Vital Signs Temp 98.3 F 05/27/24 07:13 Pulse 74 05/27/24 07:45 Resp 18 05/27/24 11:17 BP 152/87 05/27/24 07:13 Pulse Ox 94 05/27/24 07:36 O2 Del Method Room Air 05/27/24 07:36 O2 Flow Rate 3 05/24/24 08:51 Discharge Plan Discharge Patient Disposition: Xfer SNF Condition: Stable Prescriptions: New enoxaparin [Lovenox] 30 mg/0.3 mL syringe 30 mg SUBCUT DAILY 35 Days Qty: 10.5 0RF polyethylene glycol 3350 17 gram Powder In Packet 17 g PO DAILY 30 Days Qty: 30 0RF tamsulosin 0.4 mg Capsule 0.4 mg PO DAILY 30 Days Qty: 30 0RF bisacodyl 5 mg Tablet,Delayed Release (Dr/Ec) 10 mg PO DAILY 30 Days Qty: 30 0RF Continued metoprolol tartrate 25 mg tablet 25 mg PO BID amlodipine 5 mg tablet 5 mg PO QPM citalopram 40 mg tablet 40 mg PO DAILY albuterol sulfate 90 mcg/actuation HFA aerosol inhaler 2 puff inhalation Q6H PRN (Reason: Allergy Symptoms) loratadine [Claritin] 10 mg Tablet 10 mg PO DAILY entecavir 1 mg tablet 1 mg PO DAILY budesonide-formoterol [Symbicort] 160-4.5 mcg/actuation HFA aerosol inhaler 1 puff INHALATION DAILY fenofibrate nanocrystallized 145 mg tablet 145 mg PO DAILY chlorthalidone 25 mg tablet 12.5 mg PO DAILY Breztri Aerosphere 160-9-4.8 mcg/actuation HFA aerosol inhaler 2 inh INHALATION BID Changed lisinopril 40 mg tablet 20 mg PO BID 30 Days Qty: 30 0RF Discontinued hydrochlorothiazide 12.5 mg tablet 12.5 mg PO DAILY Discharge Orders: Discharge Order (Routine); Ordered 05/27/24 Ordered By: Keon Stock Referrals: [facility] [Outside] Herber Antoine DO [Referring] - Sukhjinder Diehl DO [Physician] - 2 weeks Prasanth Almendarez DO [Physician] - (We have notified your physician's clinic of the need for a follow-up appointment to be scheduled. If you have not heard from them within the next 2 business days, please call them directly. ) Discharge Diet: Regular Discharge Activity: Limit activity as instructed Patient Instructions: Amoxicillin/Clavulanate Potassium (By mouth), Enoxaparin (By injection), Acute Wound Care (DC), Opioid Safety, Post Anesthesia Care Activity Restrictions/Additional Instructions: Orthopedic discharge instructions: Patient may weight-bear as tolerated to the operative lower extremity Posterior hip precautions (avoid excess excessive hip flexion past 90 degrees and internal rotation, do not cross legs past midline) Take DVT prophylaxis -Lovenox (blood thinner) as prescribed Take pain medication as prescribed Take antinausea medication as needed Supplement with Citracal vitamin D for bone health and healing Ice as needed for pain and swelling Leave Silverlon bandage dressing on for 7 days after that may remove, rinse incision with warm soapy water/shower pat dry keep clean dry and intact and red ress with a clean dry dressing. No baths or soap May supplement for pain with Tylenol [id number] as needed(1000 mg every 8 hours-do not exceed more than 3000mg in 24-hour period) Follow-up in the orthopedic office in 2 weeks from date of surgery Contact the office for any questions or concerns per (fevers, increased drainage or redness around the incision site etc.) -please take bowel regimen -please take miralax, docusate daily until you have a regular and soft bowel movement, then use as need Discharge Attestations Time Spent in Discharge Care*: greater than 30 min Quality Metrics Clinical Quality Measures [ No reported AMI, CVA or VTE this stay] Coding Level of Care Code 38661 Total time (in minutes) for Discharge: 45 Diagnoses Fracture of femoral neck, left, closed S72.002A Leukocytosis D72.829 Acute kidney injury N17.9 Constipation, acute K59.00
--- NOTE | 2024-05-27 13:16 | P.PN_ITS ---
Subjective 2 Subjective: Patient seen and examined. Having multiple bowel movements and tolerating a liquid diet. Passing flatus Vitals/I&O/Wt Last Vital Signs Temp 97.9 F 05/27/24 11:37 Pulse 69 05/27/24 11:37 Resp 17 05/27/24 11:37 BP 176/93 05/27/24 11:37 Pulse Ox 94 05/27/24 11:37 O2 Del Method Room Air 05/27/24 11:37 O2 Flow Rate 3 05/24/24 08:51 05/26/24 05/27/24 05/27/24 22:59 06:59 14:59 Intake Total 1940 / 2390 200 / 2590 830 / 830 Output Total 200 / 925 550 / 550 Balance 1940 / 1665 0 / 1665 280 / 280 Weight last 48 hrs Weight 181 lb 11.2 oz Weight 182 lb Physical Exam 2 Narrative: General: No acute distress, awake alert and oriented x 3 Abdomen: Soft, nontender, nondistended Urinary Catheter Management: Brock: Cath Placed During This Visit: yes, but has since been removed by the nurse Reason for Continuing Indwelling Catheter: Other Urinary Catheter Date of Insertion: 05/21/24 Urinary Catheter Time of Insertion: 15:45 Date Urinary Catheter Removed: 05/22/24 Time Urinary Catheter Discontinued: 05:00 Data 05/27/24 05:28 05/27/24 05:28 A&P Assessment and plan (1) Constipation: Plan MiraLAX 17 g twice daily Dulcolax daily Soft diet Surgically stable for discharge if tolerating soft diet Medical management per hospitalist Attestations 2 Medical Necessity Statement*: Per primary Coding Level of Care Code 98805 Diagnoses Constipation K59.00
== END 2024-05-27 13:45 | disposition skilled nursing facility (03) | DRG 522 ==
LOC: ER 05:34 → MEDSURG 06:05
PROVIDERS: Internal Medicine; Student in an Organized Health Care Education/Training Program; Admitting Provider Internal Medicine; Emergency Provider Emergency Medicine; Visit Provider Family Medicine
PROC: 0SRS0J9 Replacement of Left Hip Joint, Femoral Surface with Synthetic Substitute, Cemented, Open Approach (ICD-10-PCS; CPT 27125; principal; 2024-05-21 14:20)
DX: S72.002A Fracture of unspecified part of neck of left femur, initial encounter for closed fracture (principal); N17.9 Acute kidney failure, unspecified; N39.0 Urinary tract infection, site not specified; B19.10 Unspecified viral hepatitis B without hepatic coma; W01.0XXA Fall on same level from slipping, tripping and stumbling without subsequent striking against object, initial encounter; K59.00 Constipation, unspecified; I12.9 Hypertensive chronic kidney disease with stage 1 through stage 4 chronic kidney disease, or unspecified chronic kidney disease; N18.9 Chronic kidney disease, unspecified; F17.200 Nicotine dependence, unspecified, uncomplicated; F32.A Depression, unspecified; E87.6 Hypokalemia; R11.13 Vomiting of fecal matter; F10.21 Alcohol dependence, in remission; F19.11 Other psychoactive substance abuse, in remission
CPT/HCPCS: 36415; 51702; 71045; 72192; 73502; 74018; 74176; 76770; 80048; 80053; 80076; 80306; 80307; 81001; 82140; 82550; 83690; 83735; 84100; 85025; 85610; 85730; 86850; 86900; 87086; 87426; 93005; 94640; 96372; 96374; 97110; 97116; 97161; 97166; 97530; 97535; 99285; C1713; C1776; J0131; J0690; J0696; J1100; J1171; J1650; J1885; J2212; J2405; J2543; J2704; J2710; J2765; J3010; J3370; J3475; J3480; J3490; J7030; J7613; J7626

== ENCOUNTER → 2024-06-10 13:20 | Outpatient (BNVA) | payer MEDICARE, SELFPAY | PROVIDERS: Visit Provider Physician Assistant | DX: M25.552 Pain in left hip (principal); Z96.642 Presence of left artificial hip joint | CPT/HCPCS: 73502; 99024 ==

== ENCOUNTER → 2024-07-29 13:29 | Outpatient (BNVA) | payer MEDICARE, SELFPAY | PROVIDERS: Visit Provider Physician Assistant | DX: Z96.642 Presence of left artificial hip joint (principal) | CPT/HCPCS: 73523; 99024 ==

== ENCOUNTER → 2024-09-08 10:45 | Outpatient (BNVA) | payer MEDICARE, SELFPAY | PROVIDERS: Referring Provider Internal Medicine Cardiovascular Disease; Visit Provider Nurse Practitioner Family | DX: M54.12 Radiculopathy, cervical region (principal); G89.29 Other chronic pain; M47.812 Spondylosis without myelopathy or radiculopathy, cervical region | CPT/HCPCS: 99214 ==

== ENCOUNTER → 2024-09-11 09:50 | Outpatient (BNVA) | payer MEDICARE, SELFPAY | PROVIDERS: PCP Family Medicine; Visit Provider Nurse Practitioner Family | DX: M79.18 Myalgia, other site (principal); M54.2 Cervicalgia; M54.12 Radiculopathy, cervical region; G89.29 Other chronic pain; M47.812 Spondylosis without myelopathy or radiculopathy, cervical region | CPT/HCPCS: 20553; 99214; J1010; J3490 ==

== ENCOUNTER 2024-09-24 18:11 | Inpatient (IN) | payer MEDICARE, SELFPAY ==
[2024-09-24 18:29] VITALS: BP 207/93; PULSE 70; RESP 16; TEMP 36.7; O2SAT 95
--- NOTE | 2024-09-24 18:31 | ECG_ITS ---
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 Food: : 1955 Requested By: Elton Crespo Order Number: [id number] Reading MD: Measurements Intervals [place] Rate: 80 P: 0 WV: 0 QRS: -43 QRSD: 98 T: 62 QT: 411 QTc: 475 Interpretive Statements ATRIAL FIBRILLATION WITH ABERRANT CONDUCTION OR VENTRICULAR PREMATURE COMPLEXES LEFT AXIS DEVIATION [QRS AXIS < -30] INCOMPLETE RIGHT BUNDLE BRANCH BLOCK [90+ ms QRS DURATION, TERMINAL R IN V1/V2, 40+ ms S IN I/aVL/V4/V5/V6] SEPTAL MYOCARDIAL INFARCTION , PROBABLY OLD [40+ ms Q WAVE IN V1/V2] No previous ECG available for comparison [email or web address]
--- NOTE | 2024-09-24 18:47 | XRR_ITS ---
PROCEDURE INFORMATION: Exam: XR Chest Exam date and time: 09/24/2024 7:24 PM Age: 69 years old Clinical indication: Other: Palpitations TECHNIQUE: Imaging protocol: Radiologic exam of the chest. Views: 1 view. COMPARISON: CR XR chest 1V portable [id number] 05/25/2024 8:52 AM FINDINGS: Lungs: Unremarkable. No consolidation. Pleural spaces: Unremarkable. No pleural effusion. No pneumothorax. Heart/Mediastinum: Unremarkable. No cardiomegaly. Bones/joints: Unremarkable. XR/XR chest 1V portable [id number] IMPRESSION: No acute findings.
[2024-09-24 19:00] VITALS: BP 204/126; PULSE 76; RESP 22; O2SAT 93
[2024-09-24 19:37] LABS: Basophils # 0.1 10^3/uL (0.0-0.1); Basophils % 0.8 %; Eosinophils # 0.4 10^3/uL (0.0-0.8); Eosinophils % 2.9 %; Hematocrit 50.1 % (37-53); Lymphocytes % 14.9 %; Mean Corpuscular HGB Conc 32.5 g/dL (30-55); Mean Corpuscular Hemoglobin 28.2 pg (27-33); Mean Corpuscular Volume 86.5 fl (82-101); Mean Platelet Volume 9.6 fL (7.4-10.4); Monocytes # 1.1 10^3/uL (0.2-0.9); Monocytes % 8.5 %; Neutrophils # 9.61 10^3/uL (1.8-7.7); Neutrophils % 72.5 %; Nucleated Red Blood Cells % 0 %; Platelet Count 336 10^3/cmm (157-399); Red Blood Count 5.79 10^6/uL (3.85-5.65); White Blood Count 13.24 10^3/uL (3.29-11.43)
--- NOTE | 2024-09-24 19:40 | ECG_ITS ---
[employer] Test Date: 2024-09-24 Pat Name: Brianne Holm Department: Room: Gender: Male [employer] Director: : 1955 Requested By: Chyna Gupta Order Number: [id number] Reading MD: Measurements Intervals [place] Rate: 86 P: 0 [place]: 0 QRS: -40 QRSD: 94 T: 54 QT: 419 QTc: 503 Interpretive Statements ATRIAL FIBRILLATION LEFT AXIS DEVIATION [QRS AXIS < -30] SEPTAL MYOCARDIAL INFARCTION , PROBABLY OLD [40+ ms Q WAVE IN V1/V2] MODERATE T-WAVE ABNORMALITY, CONSIDER LATERAL ISCHEMIA [-0.1+ mV T-WAVE IN I/aVL/V5/V6] [email or web address]
[2024-09-24 19:53] LABS: Lactic Sepsis W/Reflex 1.4 mmol/L (0.5-2.2)
[2024-09-24 19:54] LABS: Troponin(5th) Baseline 30 ng/L (0-15)
[2024-09-24 20:04] LABS: NT Pro B Type Natriuretic Pept 1820 pg/mL (0-125); Thyroid Stimulating Hormone 2.29 uIU/mL (0.27-4.20)
--- NOTE | 2024-09-24 20:06 | W.ED.ARRPALP ---
HPI - Arrhythmia/Palpitations General: Chief Complaint: Arrhythmia/Palpitations Stated Complaint: Irregulare heart beat High Bp Time Seen by Provider: 09/24/24 18:47 History of Present Illness: 69-year-old man with a history of anxiety, hypertension, coronary artery disease who presents emergency room with hiccups, hypertension and irregular heart rhythm. He was sent here by clinic. He says he has been having hiccups for about a week now. Says this has happened once before when he was quite anxious. No chest pain. No shortness of breath. No abdominal pain. No fevers. No altered mental status. No focal motor deficits. Related Data Home Medications ?Medication ?Instructions ?Recorded ?Confirmed amlodipine 5 mg tablet 5 mg PO QPM 02/17/21 09/11/24 citalopram 40 mg tablet 40 mg PO DAILY 02/17/21 09/11/24 albuterol sulfate 90 mcg/actuation 2 puff inhalation Q6H PRN Allergy 08/11/21 09/11/24 aerosol inhaler Symptoms budesonide-formoterol HFA 160 1 puff inhalation DAILY 01/31/24 09/11/24 mcg-4.5 mcg/actuation aerosol inhaler (Symbicort) entecavir 1 mg tablet 1 mg PO DAILY 01/31/24 09/11/24 loratadine 10 mg tablet (Claritin) 10 mg PO DAILY 01/31/24 09/11/24 chlorthalidone 25 mg tablet 12.5 mg PO DAILY 05/21/24 09/11/24 Previous Rx's ?Medication ?Instructions ?Recorded lisinopril 40 mg tablet 20 mg (1/2 x 40 mg) PO BID 30 days 05/27/24 #30 tabs baclofen 5 mg tablet 5 mg PO BID PRN muscle spasm #60 09/08/24 tabs Allergies Allergy/AdvReac Type Severity Reaction Status Date / Time trazodone Allergy itching Verified 09/11/24 09:52 Review of Systems Narrative: Constitutional symptoms: Negative except as documented in HPI. Skin symptoms: Negative except as documented in HPI. Eye symptoms: Negative except as documented in HPI. ENMT symptoms: Negative except as documented in HPI. Respiratory symptoms: Negative except as documented in HPI. Cardiovascular symptoms: Negative except as documented in HPI. Gastrointestinal symptoms: Negative except as documented in HPI. Genitourinary symptoms: Negative except as documented in HPI. Musculoskeletal symptoms: Negative except as documented in HPI. Neurologic symptoms: Negative except as documented in HPI. Psychiatric symptoms: Negative except as documented in HPI. Endocrine symptoms: Negative except as documented in HPI. PFSH ED PFSH: Medical History Hepatitis B Hematuria Depression History of heart attack HTN (hypertension) Elevated cholesterol BPH loc w urin obs/LUTS Hx of fracture of lower leg Hx of cataract Surgical History Hx of tonsillectomy Hx of abdominal surgery History of back surgery Hx of hand surgery Family History Grandmother Diabetes Father , AT AGE 81 CAD (coronary artery disease) Mother CAD (coronary artery disease) Social History Smoking and tobacco/nicotine status: never used tobacco/nicotine Alcohol intake: former Substance/Drug Use: former Marital status: Current occupational status: retired Physical Exam Narrative: EXAM NARRATIVE: General: Alert, no acute distress. Patient is having hiccups Skin: Warm, dry. Head: Normocephalic, atraumatic. Neck: Supple, trachea midline. Eye: Extraocular movements are intact. Ears, nose, mouth and throat: mucosa moist. Cardiovascular: Irregular, Normal peripheral perfusion. Respiratory: Lungs are clear to auscultation, respirations are non-labored, breath sounds are equal, Symmetrical chest wall expansion. Gastrointestinal: Soft, Nontender, Non distended Musculoskeletal: Normal ROM, no deformity. Neurological: Alert and oriented, No focal neurological deficit observed. Psychiatric: Cooperative, appropriate mood & affect. Course Vital Signs: Vital signs: Vital Signs Temperature 98.0 F 09/24/24 18:29 Pulse Rate 76 09/24/24 22:09 Respiratory Rate 22 H 09/24/24 22:09 Blood Pressure 191/115 09/24/24 22:09 Pulse Oximetry 91 09/24/24 22:09 Oxygen Delivery Me thod Room Air 09/24/24 19:00 MDM - Arrhythmia/Palpitations Medical Decision Making Medical decision making: Differential diagnosis including but not limited to and based on the above HPI, review of systems and physical exam: for patient with palpitations: atrial fibrillation with rapid ventricular response. ventricular tachycardia. sinus tachycardia. PVCs. also concern for underlying issues causing tachycardia. Infection, electrolyte abnormalities and thyroid issues. Orders placed to evaluate differential diagnosis based on the above differential, HPI and physical exam EKG: Time 1826. Rate 80. Bouncing between sinus and atrial fibrillation with controlled rate, No ST-T changes, no ectopy, This was reviewed and interpreted by myself the ER physician at 182. Chest x-ray: No acute process. No infiltrate. No pneumothorax. This was reviewed and interpreted by myself the emergency room physician. I also reviewed the radiology report. Lab Review: Laboratory results were reviewed and interpreted by myself the emergency room physician. Mild leukocytosis. No anemia. Acute on chronic renal insufficiency with a creatinine of 1.6 today. proBNP is elevated at over 1500. Initial troponin was 30. I reviewed the patient's medical record. Reexamination: Patient does report some exertional dyspnea and orthopnea. Some new swelling in his legs. Continues to have hiccups. No increased work of breathing at this time. Consultation: I spoke with Dr. Atkins who is on-call for the hospitalist service who agrees to admission. Assessment and plan: Accelerated hypertension New onset A-fib. Congestive heart failure. Hiccups. -IV hydralazine and IV Lasix in the emergency room. -I discussed the patient with the hospitalist on-call who is admitting the patient. - Discussed findings and plan with patient. Answered any questions. - All laboratory values were reviewed and interpreted personally by myself, the ER physician - All imaging was reviewed and interpreted personally by myself, the ER physician. - Evaluation and treatment of this problem were appropriate in the emergency setting Lab Data 09/24/24 19:25 09/24/24 19:25 Radiology Impressions Chest X-Ray 09/24/24 18:47 IMPRESSION: No acute findings. Laboratory Results WBC 13.24 10^3/uL (3.29-11.43) H 09/24/24 19:25 RBC 5.79 10^6/uL (3.85-5.65) H 09/24/24 19:25 Hgb 16.30 g/dL (11.27-16.99) 09/24/24 19:25 Hct 50.1 % (37-53) 09/24/24 19:25 MCV 86.5 fl (82-101) 09/24/24 19:25 MCH 28.2 pg (27-33) 09/24/24 19: MCHC 32.5 g/dL (30-55) 09/24/24 19:25 RDW 15.0 % (12.1-15.1) 09/24/24 19: Plt Count 336 10^3/cmm (157-399) 09/24/24 19:25 MPV 9.6 fL (7.4-10.4) 09/24/24 19:25 Neut % (Auto) 72.5 % 09/24/24 19:25 Lymph % (Auto) 14.9 % 09/24/24 19: Cloud % (Auto) 8.5 % 09/24/24 19: Eos % (Auto) 2.9 % 09/24/24 19:25 Baso % (Auto) 0.8 % 09/24/24 19: Neut # (Auto) 9.61 10^3/uL (1.8-7.7) H 09/24/24 19:25 Lymph # (Auto) 2.0 10^3/uL (0.8-4.8) 09/24/24 19: Cloud # (Auto) 1.1 10^3/uL (0.2-0.9) H 09/24/24 19:25 Eos # (Auto) 0.4 10^3/uL (0.0-0.8) 09/24/24: Baso # (Auto) 0.1 10^3/uL (0.0-0.1) 09/24/24: Nucleated RBC % (auto) 0 % 09/24/24: Nucleated RBCs # 0.0 /100WBC 09/24/24 19:25 Sodium 143 mmol/L (136-145) 09/24/24 19:25 Potassium 3.4 mmol/L (3.5-5.1) L 09/24/24 19:25 Chloride 101 mmol/L (98-107) 09/24/24 19:25 Carbon Dioxide 25 mmol/L (22-29) 09/24/24 19:25 Anion Gap 20.4 (5-19) H 09/24/24 19:25 BUN 19 mg/dL (8-23) 09/24/24 19:25 Creatinine 1.6 mg/dL (0.7-1.2) H 09/24/24 19:25 GFR Calculation 43.1 mL/min (90-130) L 09/24/24 19:25 Glucose 101 mg/dL (65-115) 09/24/24 19:25 Calculated Osmolality 298 mOsm/kg (285-295) H 09/24/24 19:25 Lactic Acid 1.4 mmol/L (0.5-2.2) 09/24/24 19:25 Calcium 8.9 mg/dL (8.5-10.5) 09/24/24 19:25 Magnesium 2.2 mg/dL (1.7-2.3) 09/24/24 19:25 Total Bilirubin 0.2 mg/dL (0.15-1.2) 09/24/24 19:25 AST 17 U/L (0-40) 09/24/24 19:25 ALT 12 U/L (0-41) 09/24/24 19:25 Alkaline Phosphatase 102 U/L (40-130) 09/24/24 19:25 Troponin T Baseline 30 ng/L (0-15) H 09/24/24 19:25 Troponin T 120 Minute 27.42 ng/L (0-15) H 09/24/24 21:24 Delta Troponin T -2.58 ABS# (0-10) L 09/24/24 21:24 C-Reactive Protein 22.0 mg/L (0.0-4.9) H 09/24/24 19:25 NT-Pro-B Natriuret Pep 1820 pg/mL (0-125) H 09/24/24 19:25 Total Protein 6.1 g/dL (6.6-8.7) L 09/24/24 19:25 Albumin 3.1 g/dL (3.5-5.2) L 09/24/24 19:25 Globulin 3.0 g/dL (1.3-4.6) 09/24/24 19:25 Lipase 74 U/L (13-60) H 09/24/24 19:25 Procalcitonin 0.20 ng/mL (0-0.5) 09/24/24 19:25 TSH 2.29 uIU/mL (0.27-4.20) 09/24/24 19:25 Urine Color Yellow (Yellow) 09/24/24 20:53 Urine Appearance Clear (CLEAR) 09/24/24 20:53 Urine pH 8.0 (5-7) A 09/24/24 20:53 Ur Specific [place] 1.022 (1.005-1.030) 09/24/24 20:53 Urine Protein 4+ (Negative) A 09/24/24 20:53 Urine Glucose (UA) Trace (Normal) H 09/24/24 20:53 Urine Ketones Negative (Negative) 09/24/24 20:53 Urine Blood Negative (Negative) 09/24/24 20:53 Urine Nitrate Negative (Negative) 09/24/24 20:53 Urine Bilirubin Negative (Negative) 09/24/24 20:53 Urine Urobilinogen 0.2 mg/dL (Negative) 09/24/24 20:53 Ur Leukocyte Esterase Negative (Negative) 09/24/24 20:53 Urine RBC 0-2 /hpf (0-2) 09/24/24 20:53 Urine WBC 0-5 /hpf (0-5) 09/24/24 20:53 Ur Squamous Epith Cells 0-5 /hpf (0-5) 09/24/24 20:53 Amorphous Sediment Not Reportable 09/24/24 20:53 Urine Bacteria None seen /hpf (NONE) 09/24/24 20:53 Hyaline Casts 9.07 /lpf 09/24/24 20:53 Influenza A (PCR) Negative (Negative) 09/24/24 19:25 Influenza Type B (PCR) Negative (Negative) 09/24/24 19:25 RSV (PCR) Negative (Negative) 09/24/24 19:25 SARS-CoV-2 (PCR) Negative (Negative) 09/24/24 19:25 All radiology interpretation(s) finalized by discharge Discharge Plan Discharge Patient Disposition: Admitted As Inpatient Admit Provider: Ivan Atkins Clinical Impression: Accelerated hypertension, New onset a-fib, Dyspnea, Hiccups Condition: Stable Coding Level of Care Code 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
[2024-09-24 20:16] LABS: Alanine Aminotransferase 12 U/L (0-41); Albumin Level 3.1 g/dL (3.5-5.2); Alkaline Phosphatase 102 U/L (40-130); Anion Gap 20.4 (5-19); Aspartate Amino Transferase 17 U/L (0-40); Blood Urea Nitrogen 19 mg/dL (8-23); Calcium 8.9 mg/dL (8.5-10.5); Carbon Dioxide 25 mmol/L (22-29); Chloride 101 mmol/L (98-107); Creatinine Clr Calc Pharmacy 45.4896; Glomerular Filtration Rate 43.1 mL/min (90-130); Glucose 101 mg/dL (65-115); Lipase 74 U/L (13-60); Magnesium 2.2 mg/dL (1.7-2.3); Osmolality Calculated 298 mOsm/kg (285-295); Potassium 3.4 mmol/L (3.5-5.1); Sodium 143 mmol/L (136-145); Total Bilirubin 0.2 mg/dL (0.15-1.2); Total Protein 6.1 g/dL (6.6-8.7)
[2024-09-24 20:28] LABS: Influenza A NEGATIVE (Negative); Influenza B NEGATIVE (Negative); Respiratory Syncytial Virus Ce NEGATIVE (Negative); SARS-CoV-2 PCR NEGATIVE (Negative)
[2024-09-24 20:59] LABS: Bilirubin Urine Negative (Negative); Blood Urine Negative (Negative); Glucose Urine UA Trace (Normal); Ketones Urine Negative (Negative); Leukocyte Esterase Urine Negative (Negative); Nitrate Urine Negative (Negative); Protein Urine 4+ (Negative); Specific Gravity, Urine 1.022 (1.005-1.030); Urine Appearance Clear (CLEAR); Urine Color Yellow (Yellow); Urobilinogen Urine 0.2 mg/dL (Negative)
[2024-09-24 21:02] LABS: Bacteria Urine None Seen /hpf; Hyaline Casts Urine 9.07 /lpf; RBC Urine 0-2 /hpf (0-2); Squamous Epithelial Cell Urine 0-5 /hpf (0-5); WBC Urine 0-5 /hpf (0-5)
[2024-09-24 21:03] LABS: UA Slide Review UA Slide Review Perf
[2024-09-24 22:03] VITALS: BP 207/110; PULSE 74; RESP 16; O2SAT 91
[2024-09-24 22:09] VITALS: BP 191/115; PULSE 76; RESP 22; O2SAT 91
[2024-09-24 22:10] LABS: Troponin 5 2HR 27.42 ng/L (0-15)
[2024-09-24 22:11] LABS: Troponin 5 2HR Delta -2.58 ABS# (0-10)
[2024-09-24] MEDS: FUROsemide 10 mg/mL SDV 4mL 40 MG IVP (22:22)
[2024-09-24] MEDS: hyDRALAzine 20 mg/mL INJ 1 mL IVP (22:22)
--- NOTE | 2024-09-24 23:13 | PM.HP ---
Providers/Chief Complaint Admitting Physician: Ivan Atkins MD Primary Care Provider: Herber Antoine DO Chief Complaint: Irregular heart beat High Bp History of Present Illness Orval Vanessa Holm is a 69 year old male presented to his [facility] in [facility] for hiccups and was found to have hypertension and A-fib and sent to ER. He was seen by Dr. Harris and found to have new onset A-fib. Blood pressure is out of control. He is referred for admission. Chest x-ray unremarkable. He has had hiccups for a week and patient tells me he is having trouble thinking today minimal headache. I discussed CT scan but he states we are moving too fast. Patient tells me he saw Dr. Williamson but was borderline bradycardic in the 60s so his beta chikis was stopped and he was put on hydralazine for hypertension patient tells me his symptoms of hiccups, [id number] blood pressure and feeling poorly started after that. He thinks he has had an echo in the last 1 year. I looked at his labs and he runs low potassium all the time Patient denies history of seizures or stroke. He states he had an HI 2018 but did not have any bypass surgery or stents. At the time he was drinking and using drugs and he stopped all that then. Still smokes less than a pack a day and has smoked for 50 years. Review of Systems Narrative: General no fevers chills weight gain weight loss Cardiovascular has not noted palpitations he states his blood pressure has been high typically 150-170/70-80 heart rate 70. Has been worse since medication change off metoprolol and onto hydralazine. He denies history of irregular heartbeat. Respiratory no coughing wheezing GI positive for nausea and vomiting no diarrhea constipation no dysuria hematuria Neuro no seizures strokes Malignancy history no history of cancer Hematologic no history of clotting or bleeding disorder denies clots in the legs in the lungs Medications/Allergies Home Medications ?Medication ?Instructions ?Recorded ?Confirmed ?Last Taken ?Type amlodipine 5 mg tablet 5 mg PO QPM 02/17/21 09/11/24 05/20/24 History citalopram 40 mg tablet 40 mg PO DAILY 02/17/21 09/11/24 05/20/24 History albuterol sulfate 90 mcg/actuation 2 puff inhalation Q6H PRN Allergy 08/11/21 09/11/24 01/31/24 History aerosol inhaler Symptoms budesonide-formoterol HFA 160 1 puff inhalation DAILY 01/31/24 09/11/24 02/01/24 History mcg-4.5 mcg/actuation aerosol inhaler (Symbicort) entecavir 1 mg tablet 1 mg PO DAILY 01/31/24 09/11/24 05/20/24 History loratadine 10 mg tablet (Claritin) 10 mg PO DAILY 01/31/24 09/11/24 05/20/24 History chlorthalidone 25 mg tablet 12.5 mg PO DAILY 05/21/24 09/11/24 Unknown History lisinopril 40 mg tablet 20 mg (1/2 x 40 mg) PO BID 30 days 05/27/24 09/11/24 05/20/24 Rx #30 tabs baclofen 5 mg tablet 5 mg PO BID PRN muscle spasm #60 09/08/24 09/11/24 Unknown Rx tabs Allergies Allergy/AdvReac Type Severity Reaction Status Date / Time trazodone Allergy itching Verified 09/11/24 09:52 PFSH Acute PFSH: Medical History Hepatitis B Hematuria Depression History of heart attack HTN (hypertension) Elevated cholesterol BPH loc w urin obs/LUTS Hx of fracture of lower leg Hx of cataract Surgical History Hx of tonsillectomy Hx of abdominal surgery History of back surgery Hx of hand surgery Family History Grandmother Diabetes Father , AT AGE 81 CAD (coronary artery disease) Mother CAD (coronary artery disease) Social History (Updated 09/24/24 @ 23:19 by Ivan Atkins MD) Smoking and tobacco/nicotine status: never used tobacco/nicotine Alcohol intake: former Year of sobriety/quit date alcohol: 2018 Former alcohol use details: Previously heavy until his HI Substance/Drug Use: former Former substance use details: Previous did all drugs meth cocaine weed etc. 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 His history giving is hampered by hiccups and his cardiopulmonary exam also hampered by hiccups CV irregular but rate is controlled Lungs clear to auscultation bilaterally Abdomen positive bowel sounds soft nontender Calves no tenderness cords he has 1+ pretibial edema Neck no carotid bruits Oral Mallampati 1 Data 09/24/24 19:25 09/24/24 19:25 Micro: Microbiology 09/24/24 19:33 Blood Culture - Preliminary Blood SPECIMEN COLLECTED 09/24/24 19:25 Blood Culture - Preliminary Blood SPECIMEN COLLECTED A&P Assessment and plan (1) Accelerated hypertension: Patient with blood pressure [id number] after recent medication change. Based on his labs running potassium 2.8-3.4 except 1 replaced. He had not had medications yet in the ER so I have started Coreg Nitropaste spironolactone and his home meds lisinopril amlodipine Patient has had some chest pain will give metoprolol IV (2) Hypertensive encephalopathy: In the setting of unexplained hiccups will proceed with noncontrast CT of the head (3) New onset a-fib: Rate is already controlled. After CT scan we will consider starting anticoagulation if no bleed (4) Hiccups: Start Thorazine 25 mg every 6 hours as needed also single dose of lorazepam 0.5 mg PDMP PDMP Reviewed: Not Reviewed Attestations Medical Necessity Statement*: Patient is admitted to hospital for hypertension poorly controlled anticipate 2 nights in the hospital Coding Level of Care Code 88584 Diagnoses Accelerated hypertension I10 Hypertensive encephalopathy I67.4 New onset a-fib I48.91 Hiccups R06.6 Time Spent (min) 70
--- NOTE | 2024-09-24 23:28 | CTR_ITS ---
PROCEDURE INFORMATION: Exam: CT Head Without Contrast Exam date and time: 09/24/2024 11:41 PM Age: 69 years old Clinical indication: Pain; Headache not specified; Additional info: Headache hiccups, hypertensive encephalopathy TECHNIQUE: Imaging protocol: Computed tomography of the head without contrast. Radiation optimization: All CT scans at this facility use at least one of these dose optimization techniques: automated exposure control; mA and/or kV adjustment per patient size (includes targeted exams where dose is matched to clinical indication); or iterative reconstruction. COMPARISON: No relevant prior studies available. RADIATION DOSE METRICS: Total DLP (mGy-cm): 1111.6 FINDINGS: Brain: There are bilateral periventricular white matter and centrum semiovale hypodensities, consistent with chronic ischemic small vessel disease. Age related diffuse parenchymal volume loss. No recent infarct, intracranial bleed or mass effect. Cerebral ventricles: Ex vacuo dilatation of the ventricles. Paranasal sinuses: Visualized sinuses are unremarkable. No fluid levels. Mastoid air cells: Visualized mastoid air cells are well aerated. Orbital cavities: Post left cataract surgery. Bones: Unremarkable. No acute fracture. Soft tissues: Unremarkable. CT/CT head wo con* [id number] IMPRESSION: No large territorial infarct or intracranial bleed.
[2024-09-24] MEDS: LORazepam 1 MG/0.5 ML injection 0.5 MG IVP (23:30)
[2024-09-24] MEDS: aspirin 81 mg Chew Tablet 162 MG PO (23:31)
[2024-09-24] MEDS: potassium chloride ER 20 mEq Tablet 40 MEQ PO (23:32)
[2024-09-24] MEDS: carvedilol 6.25 mg Tablet PO (23:33)
[2024-09-24] MEDS: nitroglycerin 1 gm/inch oint Pkt 0.5 INCH TOPICAL (23:35)
[2024-09-25] VITALS (14 sets, daily range): BP systolic 139–190; BP diastolic 79–115; PULSE 63–102; RESP 15–24; TEMP 36.6–36.9; O2SAT 90–95
--- NOTE | 2024-09-25 00:47 | ECG_ITS ---
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1955 Requested By: Chyna Gupta Order Number: [id number] Reading MD: Measurements Intervals [place] Rate: 86 P: 52 FL: 214 QRS: -46 QRSD: 97 T: 79 QT: 404 QTc: 484 Interpretive Statements SINUS RHYTHM WITH FIRST DEGREE AV BLOCK WITH OCCASIONAL SUPRAVENTRICULAR PREMATURE COMPLEXES INCOMPLETE RIGHT BUNDLE BRANCH BLOCK [90+ ms QRS DURATION, TERMINAL R IN V1/V2, 40+ ms S IN I/aVL/V4/V5/V6] LEFT ANTERIOR FASCICULAR BLOCK [QRS AXIS <= -45, QR IN I, RS IN II] SEPTAL MYOCARDIAL INFARCTION , PROBABLY OLD [40+ ms Q WAVE IN V1/V2] [email or web address]
[2024-09-25] MEDS: spironolactone 25 mg Tablet PO ×2 (01:30→08:14)
[2024-09-25] MEDS: chlorPROMazine 25 mg Tablet PO ×2 (01:30→15:51)
[2024-09-25] MEDS: morphine 4 mg/mL SDV 1 mL 2 MG IVP (01:31)
[2024-09-25] MEDS: baclofen 10 mg Tablet 5 MG PO ×2 (01:31→09:32)
[2024-09-25] MEDS: apixaban 5 mg Tablet PO ×2 (01:31→08:14)
[2024-09-25 02:02] LABS: Anion Gap 16.4 (5-19); Blood Urea Nitrogen 16 mg/dL (8-23); Calcium 8.8 mg/dL (8.5-10.5); Carbon Dioxide 24 mmol/L (22-29); Chloride 102 mmol/L (98-107); Creatinine Clr Calc Pharmacy 42.6455; Glomerular Filtration Rate 40.2 mL/min (90-130); Glucose 109 mg/dL (65-115); Osmolality Calculated 290 mOsm/kg (285-295); Potassium 3.4 mmol/L (3.5-5.1); Sodium 139 mmol/L (136-145)
[2024-09-25] MEDS: budesonide 0.5 mg/2 mL Neb INHALATION (07:46)
[2024-09-25] MEDS: albuterol 2.5 mg/3 mL Neb INHALATION ×2 (07:46→11:14)
--- NOTE | 2024-09-25 08:06 | USCV_ITS ---
Brianne Holm Age: 69 Gender: M : 1955 Exam Date: 09/25/2024 15:27 Ordering Phys: Keon Stock MD Technologist: Exam Location: [facility] [place] Indication: nstemi BP: 124 / 73 HR: 70 Rhythm: Sinus Technical Quality: Adequate MEASUREMENTS (Male / Female) Normal Values 2D ECHO LV Diastolic Diameter PLAX 5.5 cm 4.2 - 5.9 / 3.9 - 5.3 cm IVS Diastolic Thickness 1.4 cm 0.6 - 1.0 / 0.6 - 0.9 cm IVS Systolic Thickness 1.9 cm LVPW Diastolic Thickness 1.2 cm 0.6 - 1.0 / 0.6 - 0.9 cm LVPW Systolic Thickness 1.6 cm LVOT Diameter 2.0 cm LV Ejection Fraction 2D Teich 87.8 % LV Ejection Fraction MOD 4C 64.0 % LV Ejection Fraction MOD 2C 69.6 % LV Ejection Fraction 2C AL 68.3 % LA Diameter 3.9 cm RA Systolic Volume 4C AL 39.5 ml RA Systolic Volume 4C MOD 38.0 ml Aorta at Sinotubular Diameter 3.0 cm IVC Diameter 2.5 cm M-MODE LA Ao Ratio MM 1.2 AV Cusp Separation MM 2.3 cm DOPPLER AV Peak Velocity 127.0 cm/s LVOT Peak Velocity 107.0 cm/s AV Area Cont Eq vti 3.7 cm squared AV Area Cont Eq pk 2.6 cm squared MV Peak Velocity 90.0 cm/s MV Area PHT 3.0 cm squared Mitral E to A Ratio 0.9 TR Peak Velocity 163.0 cm/s TR Peak Gradient 10.6 mmHg TV Peak E Velocity 93.0 cm/s PV Peak Velocity 107.0 cm/s FINDINGS Left Ventricle Normal left ventricular size, systolic function and wall thickness, with no regional wall motion abnormalities. Left ventricular ejection fraction is estimated at 60 %. Grade I/IV diastolic dysfunction (abnormal relaxation filling pattern), normal to mildly elevated filling pressures. Right Ventricle The right ventricle is normal in size and function. Right Atrium The right atrium is normal in size. Left Atrium The left atrium is normal in size. Mitral Valve Moderately thickened mitral valve. Mild mitral annular calcification. No mitral valve stenosis. Mild mitral valve regurgitation. Aortic Valve Moderate aortic valve calcification. No aortic valve stenosis. No aortic valve regurgitation. Tricuspid Valve Thickened tricuspid valve. No tricuspid valve stenosis. Trace tricuspid valve regurgitation. Pulmonic Valve Structurally normal pulmonic valve without significant stenosis. There is no pulmonic regurgitation. Pericardium Normal pericardium without effusion. Aorta Normal ascending aorta dimension. IVC The inferior vena cava appears normal. CONCLUSIONS Normal left ventricular size, systolic function and wall thickness, with no regional wall motion abnormalities. Left ventricular ejection fraction is estimated at 60 %. Grade I/IV diastolic dysfunction (abnormal relaxation filling pattern), normal to mildly elevated filling pressures. There is no pericardial effusion. No significant valve abnormalities. Right atrial pressure is around 5 mm of mercury. Constantino Alvarenga MD (Electronically Signed) Final Date: 25 Sep 2024 17:45 S
[2024-09-25] MEDS: citalopram 20 mg Tablet 40 MG PO (08:14)
[2024-09-25] MEDS: lisinopril 20 mg Tablet PO (08:14)
[2024-09-25] MEDS: dilTIAZem 30 mg Tablet PO ×2 (08:14→14:16)
[2024-09-25] MEDS: loratadine 10 mg Tablet PO (08:14)
--- NOTE | 2024-09-25 11:01 | PC.NURSE ---
Addendum entered by Janae Haas LPN 09/25/24 14:28: This nurse has left a message in both Ultrasound locations regarding Echo order that was placed at 8:06am. This is all pt is waiting for to d/c home. Addendum entered by Janae Haas LPN 09/25/24 13:38: This nurse has tried to call Ultrasound x2 to get an ETA on Echo. No answer each time. Original Note: D/C pending Echo. BP will also need to come down prior to d/c.
[2024-09-25] MEDS: hyDRALAzine 10 mg Tablet PO ×2 (11:09→14:16)
[2024-09-25] MEDS: chlorthalidone 25 mg Tablet PO (11:09)
--- NOTE | 2024-09-25 12:07 | PM.DCS ---
Discharge Providers Date of Admission: 09/24/24 21:46 Date of Discharge: September 25, 2024 Attending Provider at Admission: Ivan Atkins MD Attending Provider at Discharge: Keon Stock MD Primary Care Provider: Herber Antoine, Diagnoses at Discharge Discharge Diagnosis (1) Accelerated hypertension: Status: Acute (2) Hypertensive encephalopathy: Status: Acute (3) New onset a-fib: Status: Acute (4) Hiccups: Status: Acute Reason for Visit Reason for Visit: Irregular heart beat High Bp Hospital Course Hospital Course This is a 69-year-old male with a past medical history of COPD, smoker, hypertension, who presents [facility] for new onset A-fib and hypertensive urgency For atrial fibrillation, he has a history of bradycardia, will be discharged on diltiazem, [id number] score was 2, discussed with patient the risks and benefits of anticoagulant therapy, he voiced understanding, all questions answered, agreed to proceed For hypertensive urgency, discharged on chlorthalidone 25 mg daily, Cardizem, lisinopril 20 mg twice daily, spironolactone 50 mg daily, hydralazine 10 3 times daily For CKD, follow-up with primary care provider as outpatient Physical Exam Const: COMMON NORMALS: no acute distress and patient oriented x3 Resp: COMMON NORMALS: normal respiratory effort, No retractions, No use of accessory muscles and clear to auscultation bilaterally AUSCULTATION: clear to auscultation bilaterally Cardio: COMMON NORMALS: regular rate, S1 normal heart sound present and S2 normal heart sound present RATE: regular rate RHYTHM: abnormal rhythm irregularly irregular HEART SOUNDS: S1 normal heart sound present and S2 normal heart sound present GI: COMMON NORMALS: Normal to inspection, nondistended, normoactive bowel sounds present and non-tender Extremity: COMMON NORMALS: no pedal edema Neuro: COMMON NORMALS: patient oriented x3 Psych: COMMON NORMALS: mental status grossly normal Discharge Data Studies Completed and Pending Completed Studies During Hospitalization Category Date Time Status CT head wo con* [id number] Routine Cat Scan 09/24/24 23:28 Completed XR chest 1V portable [id number] Stat Exams 09/24/24 18:47 Completed Pending at discharge Category Date Time Status Blood Culture Stat Lab 09/24/24 19:33 Results CV. echo complete* [id number] Routine Ultrasound 09/25/24 08:06 Ordered Radiology Impressions Chest X-Ray 09/24/24 18:47 IMPRESSION: No acute findings. Head CT 09/24/24 23:28 IMPRESSION: No large territorial infarct or intracranial bleed. Laboratory Results WBC 13.24 10^3/uL (3.29-11.43) H 09/24/24 19:25 RBC 5.79 10^6/uL (3.85-5.65) H 09/24/24 19:25 Hgb 16.30 g/dL (11.27-16.99) 09/24/24 19:25 Hct 50.1 % (37-53) 09/24/24 19: MCV 86.5 fl (82-101) 09/24/24 19: MCH 28.2 pg (27-33) 09/24/24 19: MCHC 32.5 g/dL (30-55) 09/24/24: RDW 15.0 % (12.1-15.1) 09/24/24: Plt Count 336 10^3/cmm (157-399) 09/24/24 19: MPV 9.6 fL (7.4-10.4) 09/24/24 19: Neut % (Auto) 72.5 % 09/24/24 19: Lymph % (Auto) 14.9 % 09/24/24 19: [place] % (Auto) 8.5 % 09/24/24: Eos % (Auto) 2.9 % 09/24/24: Baso % (Auto) 0.8 % 09/24/24: Neut # (Auto) 9.61 10^3/uL (1.8-7.7) H 09/24/24 19:25 Lymph # (Auto) 2.0 10^3/uL (0.8-4.8) 09/24/24 19: [place] # (Auto) 1.1 10^3/uL (0.2-0.9) H 09/24/24 19:25 Eos # (Auto) 0.4 10^3/uL (0.0-0.8) 09/24/24: Baso # (Auto) 0.1 10^3/uL (0.0-0.1) 09/24/24 19: Nucleated RBC % (auto) 0 % 09/24/24 19: Nucleated RBCs # 0.0 /100WBC 09/24/24 19: Sodium 139 mmol/L (136-145) 09/25/24 00:45 Potassium 3.4 mmol/L (3.5-5.1) L 09/25/24 00:45 Chloride 102 mmol/L (98-107) 09/25/24 00:45 Carbon Dioxide 24 mmol/L (22-29) 09/25/24 00:45 Anion Gap 16.4 (5-19) 09/25/24 00:45 BUN 16 mg/dL (8-23) 09/25/24 00:45 Creatinine 1.7 mg/dL (0.7-1.2) H 09/25/24 00:45 GFR Calculation 40.2 mL/min (90-130) L 09/25/24 00:45 Glucose 109 mg/dL (65-115) 09/25/24 00:45 Calculated Osmolality 290 mOsm/kg (285-295) 09/25/24 00:45 Lactic Acid 1.4 mmol/L (0.5-2.2) 09/24/24 19: Calcium 8.8 mg/dL (8.5-10.5) 09/25/24 00:45 Magnesium 2.2 mg/dL (1.7-2.3) 09/24/24 19: Total Bilirubin 0.2 mg/dL (0.15-1.2) 09/24/24 19: AST 17 U/L (0-40) 09/24/24: ALT 12 U/L (0-41) 09/24/24 19:25 Alkaline Phosphatase 102 U/L (40-130) 09/24/24 19:25 Troponin T Baseline 30 ng/L (0-15) H 09/24/24 19:25 Troponin T 120 Minute 27.42 ng/L (0-15) H 09/24/24 21:24 Delta Troponin T -2.58 ABS# (0-10) L 09/24/24 21:24 Troponin T Hi Sens 6Hr 29.60 ng/L (0-15) H 09/25/24 00:45 Troponin T Hi Sens 6Hr Delta -0.40 ng/L (0-12) L 09/25/24 00:45 C-Reactive Protein 22.0 mg/L (0.0-4.9) H 09/24/24 19:25 NT-Pro-B Natriuret Pep 1820 pg/mL (0-125) H 09/24/24 19:25 Total Protein 6.1 g/dL (6.6-8.7) L 09/24/24 19:25 Albumin 3.1 g/dL (3.5-5.2) L 09/24/24 19:25 Globulin 3.0 g/dL (1.3-4.6) 09/24/24 19: Lipase 74 U/L (13-60) H 09/24/24 19:25 Procalcitonin 0.20 ng/mL (0-0.5) 09/24/24 19: TSH 2.29 uIU/mL (0.27-4.20) 09/24/24 19:25 Urine Color Yellow (Yellow) 09/24/24 20:53 Urine Appearance Clear (CLEAR) 09/24/24 20:53 Urine pH 8.0 (5-7) A 09/24/24 20:53 Ur Specific [place] 1.022 (1.005-1.030) 09/24/24 20:53 Urine Protein 4+ (Negative) A 09/24/24 20:53 Urine Glucose (UA) Trace (Normal) H 09/24/24 20:53 Urine Ketones Negative (Negative) 09/24/24 20:53 Urine Blood Negative (Negative) 09/24/24 20:53 Urine Nitrate Negative (Negative) 09/24/24 20:53 Urine Bilirubin Negative (Negative) 09/24/24 20:53 Urine Urobilinogen 0.2 mg/dL (Negative) 09/24/24 20:53 Ur Leukocyte Esterase Negative (Negative) 09/24/24 20:53 Urine RBC 0-2 /hpf (0-2) 09/24/24 20:53 Urine WBC 0-5 /hpf (0-5) 09/24/24 20:53 Ur Squamous Epith Cells 0-5 /hpf (0-5) 09/24/24 20:53 Amorphous Sediment Not Reportable 09/24/24 20:53 Urine Bacteria None seen /hpf (NONE) 09/24/24 20:53 Hyaline Casts 9.07 /lpf 09/24/24 20:53 Influenza A (PCR) Negative (Negative) 09/24/24 19:25 Influenza Type B (PCR) Negative (Negative) 09/24/24 19:25 RSV (PCR) Negative (Negative) 09/24/24 19:25 SARS-CoV-2 (PCR) Negative (Negative) 09/24/24 19:25 Vitals Last Vital Signs Temp 97.9 F 09/25/24 11:00 Pulse 63 09/25/24 11:14 Resp 16 09/25/24 11:14 BP 187/100 09/25/24 11:00 Pulse Ox 92 09/25/24 11:14 O2 Del Method Room Air 09/25/24 11:14 Discharge Plan Discharge Patient Disposition: Home Condition: Stable Prescriptions: New Eliquis 5 mg Tablet 5 mg PO BID@0900,2100 30 Days Qty: 60 0RF spironolactone 25 mg Tablet 50 mg PO DAILY 30 Days Qty: 60 0RF diltiazem HCl [Cardizem LA] 120 mg tablet extended release 24 hr 120 mg PO DAILY 30 Days Qty: 30 0RF hydralazine 10 mg Tablet 10 mg PO TID 30 Days Qty: 90 0RF Continued citalopram 40 mg tablet 40 mg PO DAILY albuterol sulfate 90 mcg/actuation HFA aerosol inhaler 2 puff inhalation Q6H PRN (Reason: Allergy Symptoms) baclofen 5 mg tablet 5 mg PO BID PRN (Reason: muscle spasm) Qty: 60 0RF lisinopril 40 mg tablet 20 mg PO BID 30 Days Qty: 60 0RF loratadine [Claritin] 10 mg Tablet 10 mg PO DAILY entecavir 1 mg tablet 1 mg PO DAILY budesonide-formoterol [Symbicort] 160-4.5 mcg/actuation HFA aerosol inhaler 1 puff INHALATION DAILY Changed chlorthalidone 25 mg tablet 25 mg PO DAILY 30 Days Qty: 30 0RF Discontinued amlodipine 5 mg tablet 5 mg PO QPM Discharge Orders: Discharge Order (Routine); Ordered 09/25/24 Ordered By: Keon Stock Referrals: Herber Antoine DO [Primary Care Provider, Family Practice] - 10/07/24 9:00 am Constantino Alvarenga MD [Physician, Cardiology] - 11/11/24 2:30 pm Discharge Diet: Cardiac Discharge Activity: Resume usual activity Patient Instructions: Spironolactone (By mouth), Diltiazem (By mouth), Hydralazine (By mouth), Apixaban (By mouth) (Eliquis), Hypertension, A-fib (Atrial Fibrillation) (GEN), Hiccups (GEN), Opioid Safety Activity Restrictions/Additional Instructions: - If you feel lightheaded or dizzy please go to the emergency room - Please take Eliquis as prescribed, if you develop bloody or black stools or have a significant fall go to the emergency room -please follow up with cardiology -follow up with primary care Discharge Attestations Time Spent in Discharge Care*: greater than 30 min Quality Metrics Clinical Quality Measures [ No reported AMI, CVA or VTE this stay] Coding Level of Care Code 28722 Total time (in minutes) for Discharge: 45 Diagnoses Accelerated hypertension I10 Hypertensive encephalopathy I67.4 New onset a-fib I48.91 Hiccups R06.6
== END 2024-09-25 16:54 | disposition home or self-care (01) | DRG 305 ==
LOC: ER 22:33 → MEDSURG 22:50
PROVIDERS: Admitting Provider Internal Medicine; Emergency Provider Emergency Medicine; PCP Family Medicine; Visit Provider Family Medicine
DX: I16.0 Hypertensive urgency (principal); I67.4 Hypertensive encephalopathy; N17.9 Acute kidney failure, unspecified; I48.91 Unspecified atrial fibrillation; R06.6 Hiccough; J44.9 Chronic obstructive pulmonary disease, unspecified; F17.210 Nicotine dependence, cigarettes, uncomplicated; I13.0 Hypertensive heart and chronic kidney disease with heart failure and stage 1 through stage 4 chronic kidney disease, or unspecified chronic kidney disease; N18.9 Chronic kidney disease, unspecified; I50.9 Heart failure, unspecified; F41.9 Anxiety disorder, unspecified; I25.10 Atherosclerotic heart disease of native coronary artery without angina pectoris; F32.A Depression, unspecified; E78.00 Pure hypercholesterolemia, unspecified; N40.1 Benign prostatic hyperplasia with lower urinary tract symptoms; I25.2 Old myocardial infarction; Z79.51 Long term (current) use of inhaled steroids; Z86.19 Personal history of other infectious and parasitic diseases
CPT/HCPCS: 36415; 70450; 71045; 80048; 80053; 81001; 83605; 83690; 83735; 83880; 84145; 84443; 84484; 85025; 86140; 87040; 87637; 93005; 93306; 94640; 96374; 96375; 99285; J0360; J1938; J2060; J2270; J7613; J7626; J9999; Q0161

== ENCOUNTER 2024-10-23 11:29 | Emergency (ER) | payer MEDICARE, SELFPAY ==
[2024-10-23 11:30] VITALS: BP 165/97; PULSE 74; RESP 18; TEMP 36.6; O2SAT 92; BMI 25.1
--- NOTE | 2024-10-23 11:38 | ECG_ITS ---
[facility] Test Date: 2024-10-23 Pat Name: Brianne Holm Department: Room: Gender: Male Order Processing Specialist: : 1955 Requested By: Ernesto Carrasco Order Number: [id number] Reading MD: Measurements Intervals [place] Rate: 65 P: 47 MO: 198 QRS: -21 QRSD: 93 T: 56 QT: 422 QTc: 440 Interpretive Statements SINUS RHYTHM WITH OCCASIONAL SUPRAVENTRICULAR PREMATURE COMPLEXES BORDERLINE LEFT AXIS DEVIATION [QRS AXIS < -20] INCOMPLETE RIGHT BUNDLE BRANCH BLOCK [90+ ms QRS DURATION, TERMINAL R IN V1/V2, 40+ ms S IN I/aVL/V4/V5/V6] No previous ECG available for comparison [id number]
--- NOTE | 2024-10-23 11:42 | W.ED.CHESTPA ---
HPI - Chest Pain General: Chief Complaint: Chest Pain Stated Complaint: chest pain - fatigue Time Seen by Provider: 10/23/24 11:38 History of Present Illness: 69 M with history of hypertension who presents to the ED with concerns about elevated blood pressure. He reports checking his blood pressure last night around 9 PM before taking his medications and found it to be in the 190s/115. He continued to check his blood pressure hourly throughout the night and noted it was progressively increasing. This morning his blood pressure was 197/115 despite taking his morning medications around 6:30-7:00 AM. He reports associated chest pain described as 'heartburn' that started 4-5 days ago, intermittent in nature, lasting 3-4 minutes per episode. He experienced chest pain on the way to the hospital today. Patient notes this heartburn sensation is familiar but states he hasn't experienced it for 4-5 years. He typically self-treats with baking soda. Patient reports feeling lightheaded and dizzy when his blood pressure is elevated. He expresses significant anxiety about his blood pressure readings due to family history of cardiovascular disease. He also complains of poor sleep, reporting he is up every 30-60 minutes to urinate, which he attributes to his diuretic medication. Related Data Home Medications ?Medication ?Instructions ?Recorded ?Confirmed citalopram 40 mg tablet 40 mg PO DAILY 02/17/21 09/25/24 albuterol sulfate 90 mcg/actuation 2 puff inhalation Q6H PRN Allergy 08/11/21 09/25/24 aerosol inhaler Symptoms budesonide-formoterol HFA 160 1 puff inhalation DAILY 01/31/24 09/25/24 mcg-4.5 mcg/actuation aerosol inhaler (Symbicort) entecavir 1 mg tablet 1 mg PO DAILY 01/31/24 09/25/24 loratadine 10 mg tablet (Claritin) 10 mg PO DAILY 01/31/24 09/25/24 evolocumab 140 mg/mL subcutaneous 140 mg SUBCUT .Q14D 09/25/24 09/25/24 pen injector (Arben Burns) Previous Rx's ?Medication ?Instructions ?Recorded baclofen 5 mg tablet 5 mg PO BID PRN muscle spasm #60 09/08/24 tabs apixaban 5 mg tablet (Eliquis) 5 mg PO BID@0900,2100 30 days #60 09/25/24 tabs diltiazem HCl 120 mg 120 mg PO DAILY 30 days #30 tabs 09/25/24 tablet,extended release 24 hr (Cardizem LA) hydralazine 10 mg tablet 10 mg PO TID 30 days #90 tabs 09/25/24 lisinopril 40 mg tablet 20 mg (1/2 x 40 mg) PO BID 30 days 09/25/24 #60 tabs Allergies Allergy/AdvReac Type Severity Reaction Status Date / Time trazodone Allergy itching Verified 10/16/24 07:46 PFSH ED PFSH: Medical History Hepatitis B Hematuria Depression History of heart attack HTN (hypertension) Elevated cholesterol BPH loc w urin obs/LUTS Hx of fracture of lower leg Hx of cataract Surgical History Hx of tonsillectomy Hx of abdominal surgery History of back surgery Hx of hand surgery Family History Grandmother Diabetes Father , AT AGE 81 CAD (coronary artery disease) Mother CAD (coronary artery disease) Social History Smoking and tobacco/nicotine status: never used tobacco/nicotine Alcohol intake: former Year of sobriety/quit date alcohol: 2018 Former alcohol use details: Previously heavy until his DE Substance/Drug Use: former Former substance use details: Previous did all drugs meth cocaine weed etc. 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[employer] Physical Exam Const: COMMON NORMALS: no acute distress, patient oriented x3 and alert GENERAL APPEARANCE: cooperative ORIENTATION/CONSCIOUSNESS: Yes awake, Yes oriented to person, Yes oriented to place and Yes oriented to time HENMT: COMMON NORMALS: normocephalic, atraumatic, external ears normal, Normal external nose present and moist oral mucous membranes HEAD & SCALP: normal to inspection, normocephalic and atraumatic NOSE: Normal external nose present GENERAL EAR: hearing grossly impaired EXTERNAL EAR: Yes external ears normal Eye: COMMON NORMALS: Equal, round and reactive pupils present, EOMs intact bilaterally, conjunctivae normal and no scleral icterus GENERAL EYE: appearance normal, both eyes and all related structures EYELID: eyelids normal CONJUNCTIVA: Yes conjunctivae normal SCLERA: sclerae normal PUPIL: Yes Equal, round and reactive pupils present Neck/C-Spine: COMMON NORMALS: full ROM, supple and no JVD GENERAL: Yes normal visual inspection Lymph: LYMPHATIC: no lymphadenopathy noted and no lymphedema noted Chest: COMMONS NORMALS: normal inspection of the chest Resp: COMMON NORMALS: normal respiratory effort, No retractions and No use of accessory muscles Cardio: COMMON NORMALS: no JVD, regular rate and regular rhythm RATE: regular rate RHYTHM: regular rhythm GI: COMMON NORMALS: Normal to inspection, nondistended, normoactive bowel sounds present : COMMON NORMALS: Yes no CVA tenderness BLADDER/KIDNEY EXAM: Yes no CVA tenderness Back/Pelvis: COMMON NORMALS: no CVA tenderness and thoracic and lumbar spine normal to inspection Extremity: COMMON NORMALS: normal to inspection, full ROM and capillary refill normal GENERAL: Yes normal exam except as noted Neuro: COMMON NORMALS: patient oriented x3, CN's II-XII intact bilaterally, moves all extremities, no focal motor deficits, no sensory deficits noted and gait normal SENSORIUM/ORIENTATION: Yes alert, Yes oriented to person, Yes oriented to place and Yes oriented to time Psych: COMMON NORMALS: mental status grossly normal, Normal thought process present, cooperative and normal affect THOUGHT PROCESS: Normal thought process present Skin: COMMON NORMALS: no rashes or lesions noted and no wounds GENERAL SKIN EXAM: no rashes or lesions noted Course Vital Signs: Vital signs: Vital Signs Temperature 97.8 F 10/23/24 11:30 Pulse Rate 66 10/23/24 12:30 Respiratory Rate 16 10/23/24 12:30 Blood Pressure 171/81 10/23/24 12:30 Pulse Oximetry 95 10/23/24 12:30 Oxygen Delivery Me thod Room Air 10/23/24 11:30 MDM - Chest Pain Medical Decision Making Summary Statement: 60-year-old male with history of hypertension, CAD, and atrial fibrillation presenting with elevated blood pressure and intermittent chest pain described as heartburn. Patient demonstrates significant anxiety about his blood pressure readings. Problem List: 1. Hypertension with elevated readings, 2. Chest pain/heartburn, 3. Medication side effects (frequent urination, sleep disturbance), 4. Anxiety related to health concerns, 5. Tobacco use Differential Diagnosis: For hypertension: essential hypertension, medication non-adherence, white coat hypertension, anxiety-induced hypertension. For chest pain: GERD, anxiety-related non-cardiac chest pain, angina, acute coronary syndrome. ED Course: Patient evaluated for hypertensive urgency and chest pain. Cardiac enzymes and basic labs ordered. Medication regimen reviewed with particular attention to diuretic therapy (spironolactone) which may be contributing to sleep disturbance due to nocturia. Patient educated on relationship between anxiety, sleep disturbance, and blood pressure elevation. EKG is unremarkable for patient. Patient declined CXR noting he has no chest pain or difficulty breathing. BP in the 150s in room. He is requesting discharge after first round of labs. Baseline trop of 30 w/ 21 today likely related to his CKD. In addition has Hyperkalemia and worsening CKD.Believe this is diuretic related.Recommended stppping for the near to detention. Lab Data 10/23/24 11:47 10/23/24 11:47 Laboratory Results WBC 12.24 10^3/uL (3.29-11.43) H 10/23/24 11:47 RBC 5.61 10^6/uL (3.85-5.65) 10/23/24 11:47 Hgb 15.90 g/dL (11.27-16.99) 10/23/24 11:47 Hct 48.6 % (37-53) 10/23/24 11:47 MCV 86.6 fl (82-101) 10/23/24 11:47 MCH 28.3 pg (27-33) 10/23/24 11:47 MCHC 32.7 g/dL (30-55) 10/23/24 11:47 RDW 14.8 % (12.1-15.1) 10/23/24 11:47 Plt Count 302 10^3/cmm (157-399) 10/23/24 11:47 MPV 9.9 fL (7.4-10.4) 10/23/24 11:47 Neut % (Auto) 73.8 % 10/23/24 11:47 Lymph % (Auto) 13.8 % 10/23/24 11:47 [place] % (Auto) 8.8 % 10/23/24 11:47 Eos % (Auto) 1.8 % 10/23/24 11:47 Baso % (Auto) 0.7 % 10/23/24 11:47 Neut # (Auto) 9.04 10^3/uL (1.8-7.7) H 10/23/24 11:47 Lymph # (Auto) 1.7 10^3/uL (0.8-4.8) 10/23/24 11:47 [place] # (Auto) 1.1 10^3/uL (0.2-0.9) H 10/23/24 11:47 Eos # (Auto) 0.2 10^3/uL (0.0-0.8) 10/23/24 11:47 Baso # (Auto) 0.1 10^3/uL (0.0-0.1) 10/23/24 11:47 Nucleated RBC % (auto) 0 % 10/23/24 11:47 Nucleated RBCs # 0.0 /100WBC 10/23/24 11:47 Sodium 139 mmol/L (136-145) 10/23/24 11:47 Potassium 5.2 mmol/L (3.5-5.1) H 10/23/24 11:47 Chloride 103 mmol/L (98-107) 10/23/24 11:47 Carbon Dioxide 21 mmol/L (22-29) L 10/23/24 11:47 Anion Gap 20.2 (5-19) H 10/23/24 11:47 BUN 39 mg/dL (8-23) H 10/23/24 11:47 Creatinine 2.0 mg/dL (0.7-1.2) H 10/23/24 11:47 GFR Calculation 33.3 mL/min (90-130) L 10/23/24 11:47 Glucose 100 mg/dL (65-115) 10/23/24 11:47 Calculated Osmolality 297 mOsm/kg (285-295) H 10/23/24 11:47 Calcium 10.4 mg/dL (8.5-10.5) 10/23/24 11:47 Total Bilirubin 0.2 mg/dL (0.15-1.2) 10/23/24 11:47 AST 14 U/L (0-40) 10/23/24 11:47 ALT 12 U/L (0-41) 10/23/24 11:47 Alkaline Phosphatase 99 U/L (40-130) 10/23/24 11:47 Troponin T Baseline 23 ng/L (0-15) H 10/23/24 11:47 Total Protein 6.5 g/dL (6.6-8.7) L 10/23/24 11:47 Albumin 3.5 g/dL (3.5-5.2) 10/23/24 11:47 Globulin 3.0 g/dL (1.3-4.6) 10/23/24 11:47 No radiology studies performed this visit Discharge Plan Discharge Patient Disposition: Home Clinical Impression: Benign essential hypertension Condition: Stable Prescriptions: Discontinued spironolactone 25 mg Tablet 50 mg PO DAILY 30 Days Qty: 60 0RF No Action citalopram 40 mg tablet 40 mg PO DAILY albuterol sulfate 90 mcg/actuation HFA aerosol inhaler 2 puff inhalation Q6H PRN (Reason: Allergy Symptoms) baclofen 5 mg tablet 5 mg PO BID PRN (Reason: muscle spasm) Qty: 60 0RF Eliquis 5 mg Tablet 5 mg PO BID@0900,2100 30 Days Qty: 60 0RF diltiazem HCl [Cardizem LA] 120 mg tablet extended release 24 hr 120 mg PO DAILY 30 Days Qty: 30 0RF hydralazine 10 mg Tablet 10 mg PO TID 30 Days Qty: 90 0RF lisinopril 40 mg tablet 20 mg PO BID 30 Days Qty: 60 0RF Repatha SureClick 140 mg/mL pen injector 140 mg SUBCUT .Q14D loratadine [Claritin] 10 mg Tablet 10 mg PO DAILY entecavir 1 mg tablet 1 mg PO DAILY budesonide-formoterol [Symbicort] 160-4.5 mcg/actuation HFA aerosol inhaler 1 puff INHALATION DAILY Discharge Orders: Discharge ED (Routine); Ordered 10/23/24 Ordered By: Ernesto Carrasco Referrals: Herber Antoine DO [Primary Care Provider, [facility]] Discharge Diet: Advance as tolerated Discharge Activity: Resume usual activity Patient Instructions: Hypertension (ED), Patient Portal & Ashanti Instructions Print Language: Eritrean Coding Level of Care Code ED Travel Assistant for Chg Surinder
[2024-10-23 11:52] VITALS: BP 165/97; PULSE 67; RESP 16; O2SAT 92
--- OUTSIDE RECORDS SUMMARY | 2024-10-23 12:02 | XMS_ITS | Encounter Summary ---
Author Organization [facility] Address [address] [place] [address] Care Team Providers Care Dispensing And Measuring Optician Name Role Phone Romario Galvan MD Primary Care Provider + Reason for Visit * Reason Comments Medication Refill Encounter Details Date Type Department Care Team (Late st Contact Info) Description 12/09/[address] 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
--- OUTSIDE RECORDS SUMMARY | 2024-10-23 12:02 | XMS_ITS | Encounter Summary ---
Author Organization [facility] Address [address] [facility] [place] [address] Care Team Providers Care Mooner Name Role Phone Romario Galvan MD Primary Care Provider + Encounter Details Date Type Department Care Team (Latest Contact Info) Description 02/11/2002 Outpatient Historical [facility] Gurpreet Marie MD NO ADDRESS ON FILE POSTSURG AFTERCARE OTHER SPECIFIED (Primary Dx) Social History Tobacco Use Types Packs/Day Years Used Date Smoking Tobacco: Never Assessed Sex and Gender Information Value Date Recorded Sex Assigned at Not on file 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
--- OUTSIDE RECORDS SUMMARY | 2024-10-23 12:02 | XMS_ITS | Encounter Summary ---
Author Organization [facility] Address [address] [facility] [place] [address] Care Team Providers Care Home Organizer Name Role Phone Romario Galvan MD Primary Care Provider + Encounter Details Date Type Department Care Team (Latest Contact Info) Description 02/26/2002 Outpatient Historical HIS [facility] Gurpreet Marie MD NO ADDRESS ON FILE OPEN WOUND EX EAR NOS-COMPL (Primary Dx) Social History Tobacco Use Types Packs/Day Years Used Date Smoking Tobacco: Never Assessed Sex and Gender Information Value Date Recorded Sex Assigned at Not on file 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
--- OUTSIDE RECORDS SUMMARY | 2024-10-23 12:02 | XMS_ITS | Encounter Summary ---
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
--- OUTSIDE RECORDS SUMMARY | 2024-10-23 12:02 | XMS_ITS | Encounter Summary ---
Author Organization [facility] Address [address] [place] [address] Care Team Providers Care Inside Solar Sales Consultant Name Role Phone Romario Galvan MD Primary Care Provider + Encounter Details Date Type Department Care Team (Late st Contact Info) Description 01/15/2007 Emergency [facility] Emergency Department [address] 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 Gender Identity Not on file Sexual Orientation Not on file documented as of this encounter Plan of Treatment Not on file documented as of this encounter Procedures Procedure Name Priority Date/Time Associated Diagnosis Comments POC CREATININE Routine 01/15/2007 4:45 AM CDT PT AND APTT Routine 01/15/2007 4:43 AM CDT CARDIAC ENZYMES Routine 01/15/2007 4:43 AM CDT CBC WITH DIFFERENTIAL Routine 01/15/2007 4:43 AM CDT BRAIN NATRIURETIC PEPTIDE, BNP OR PROBNP Routine 01/15/2007 4:43 AM CDT BASIC METABOLIC PANEL Routine 01/15/2007 4:43 AM CDT CTA CHEST W WO CONTRAST Routine 01/15/2007 3:39 AM CDT XR CHEST PA AND LATERAL 2 VW Routine 01/15/2007 3:39 AM CDT documented in this encounter Results * (ABNORMAL) POC CREATININE (01/15/2007 4:45 AM CDT) CREATININE POC 0.7(L) 0.7 - 1.5 mg/dL INTERFACE SYSTEM 01/15/2007 4:45 AM CDT Aleksander Cortes MD POINT OF CARE TESTING Edited Performing Organization Address [facility] de Phone Number INTERFACE SYSTEM Refer to clinic/hospital department * BRAIN NATRIURETIC PEPTIDE, BNP OR PROBNP (01/15/2007 4:43 AM CDT) BRAIN NATRIURETIC PEPTIDE 33 0 - 125 pg/mL INTERFACE SYSTEM 01/15/2007 4:43 AM CDT us Aleksander Cortes MD CHEMISTRY ORDERABLES Edited Performing Organization Address [facility] de Phone Number INTERFACE SYSTEM Refer to clinic/hospital department * PT AND APTT (01/15/2007 4:43 AM CDT) PROTIME 13.4 13.0 - 15.7 Secs INTERFACE SYSTEM Comment: As of 06 note change in normal range. INR 0.9 INTERFACE SYSTEM Comment: Expected Values for INR: DVT/PE Goal INR 2.5; range 2.0 - 3.0 Valve Replacement Tissue Goal INR 2.5; range 2.0 - 3.0 Mechanical Goal INR 3.0; range 2.5 - 3.5 POST-NJ Goal INR 2.5; range 2.0 - 3.0 or Goal 3.0; range 2.5 - 3.5 Atrial Fibrillation Goal INR 2.5; range 2.0 - 3.0 Ischemic Stroke Goal INR 2.5; range 2.0 - 3.0 For additional information see Guidelines for Anticoagulation available from the pharmacy [facility]. PTT 32.1 21.6 - 35.6 Secs INTERFACE SYSTEM Comment: Therapeutic Range: Hi-level PE/DVT heparin protocol 80.1 -95.0 sec Lo-level PE/DVT heparin protocol 67.1 - 80.0 sec Cardiac Heparin Protocol 67.1 - 85.0 sec Neuro Heparin Protocol 67.1 - 80.0 sec As of 04/05/2006 note change in APTT Normal Range. 01/15/2007 4:43 AM CDT Aleksander Cortes MD HEMATOLOGY ORDERABLES Edited Performing Organization Address [facility] Phone Number INTERFACE SYSTEM Refer to clinic/hospital department * CARDIAC ENZYMES (01/15/2007 4:43 AM CDT) TROPONIN I <0.1 0.0 - 1.3 ng/mL INTERFACE SYSTEM Comment: As of 06 the Troponin Reference Range has changed from 0.0-1.5 ng/ml to 0.0- 1.3 ng/ml due to a change in testing methodology. CKMB 0.7 0.0 - 5.0 ng/mL INTERFACE SYSTEM 01/15/2007 4:43 AM CDT Aleksander Cortes MD CHEMISTRY ORDERABLES Edited Performing Organization Address [facility] Phone Number INTERFACE SYSTEM Refer to clinic/hospital department * BASIC METABOLIC PANEL (01/15/2007 4:43 AM CDT) GLUCOSE 103 70 - 110 mg/dL INTERFACE SYSTEM BUN 17 9 - 20 mg/dL INTERFACE SYSTEM CREATININE 0.9 0.7 - 1.5 mg/dL INTERFACE SYSTEM SODIUM 136 136 - 145 mEq/L INTERFACE SYSTEM POTASSIUM 4.0 3.5 - 5.0 mEq/L INTERFACE SYSTEM Comment:Specimen slightly he molyzed CHLORIDE 104 95 - 110 mEq/L INTERFACE SYSTEM CO2 26 22 - 32 mmol/l INTERFACE SYSTEM CALCIUM 9.5 8.4 - 10.5 mg/dL INTERFACE SYSTEM ANION GAP 10 9 - 20 mEq/L INTERFACE SYSTEM OSMOLALITY, CALCULATED 282 275 - 295 mOsm/Kg INTERFACE SYSTEM 01/15/2007 4:43 AM CDT Aleksander Cortes MD CHEMISTRY ORDERABLES Edited INTERFACE SYSTEM Refer to clinic/hospital department * (ABNORMAL) CBC WITH DIFFERENTIAL (01/15/2007 4:43 AM CDT) WBC 8.3 4.8 - 10.8 K/ul INTERFACE SYSTEM RBC 4.86 4.60 - 6.20 Mil/ul INTERFACE SYSTEM HEMOGLOBIN 13.8(L) 14.0 - 18.0 g/dL INTERFACE SYSTEM HEMATOCRIT 41.5 41.0 - 53.0 % INTERFACE SYSTEM MCV 85.4 84.0 - 103.0 Fl INTERFACE SYSTEM MCH 28.4 27.0 - 34.0 pg INTERFACE SYSTEM MCHC 33.3 30.0 - 35.0 g/dL INTERFACE SYSTEM RDW 13.2 11.0 - 14.5 % INTERFACE SYSTEM PLATELETS 302 140 - 440 K/ul INTERFACE SYSTEM MPV 9.9 8.9 - 12.8 Fl INTERFACE SYSTEM NEUTROPHILS 44.0 42.2 - 75.2 % INTERFACE SYSTEM LYMPHOCYTES 42.6 24.0 - 44.0 % INTERFACE SYSTEM MONOCYTES 9.4 2.0 - 10.0 % INTERFACE SYSTEM EOSINOPHILS 2.8 0.0 - 7.0 % INTERFACE SYSTEM BASOPHILS 1.2(H) 0.0 - 1.0 % INTERFACE SYSTEM NEUTROPHIL ABSOLUTE 3.6 2.0 - 8.0 K/ul INTERFACE SYSTEM LYMPHOCYTE ABSOLUTE 3.5 1.2 - 4.0 K/ul INTERFACE SYSTEM MONOCYTE ABSOLUTE 0.8(H) 0.1 - 0.6 K/ul INTERFACE SYSTEM EOSINOPHIL ABSOLUTE 0.2 0.0 - 0.7 K/ul INTERFACE SYSTEM BASOPHILS ABSOLUTE 0.1 0.0 - 0.2 K/ul INTERFACE SYSTEM 01/15/2007 4:43 AM CDT Aleksander Cortes MD HEMATOLOGY ORDERABLES Edited INTERFACE SYSTEM Refer to clinic/hospital department * XR CHEST PA AND LATERAL (01/15/2007 3:39 AM CDT) Anatomical Region Laterality Modality Chest Other 01/15/2007 3:39 AM CDT Narrative 01/15/2007 3:39 AM CDT Exam: Chest - PA and LateralDate/Time of Exam: Jan 15, 2007 5:34:12 AMHistory: Difficulty breathing. Comparisons: None. Findings: Heart size and mediastinal silhouette appear within normal limits. Aorta is minimallytortuous. Lungs are clear without evidence for effusion, edema or infiltrates. Spinal fusionhardware is noted at the thoracolumbar junction. No evidence for pneumothorax. Impressions: 1. No acute cardiopulmonary disease. - Dictated By: Wes Meza M.D., Ph.D. Electronically Signed By: Wes Meza M.D., Ph.D. Date Signed: 01/17/07 Procedure Note 03/21/2009 Exam: Chest - PA and LateralDate/Time of Exam: Jan 15, 2007 5:34:12 AMHistory: Difficulty breathing. Comparisons: None. Findings: Heart size and mediastinal silhouette appear within normal limits. Aortais minimallytortuous. Lungs are clear without evidence for effusion, edema or infiltrates. Spinalfusionhardware is noted at the thoracolumbar junction. No evidence for pneumothorax. Impressions: 1. No acute cardiopulmonary disease. - Dictated By: Wes Meza M.D., Ph.D. Electronically Signed By: Wes Meza M.D., Ph.D. Date Signed: 01/17/07 Aleksander Cortes MD DIAGNOSTIC IMAGING ORDERABLES Fi nal Result * CTA CHEST W WO CONTRAST (01/15/2007 3:39 AM CDT) Anatomical Region Laterality Modality Chest Other 01/15/2007 3:39 AM CDT Narrative 01/15/2007 3:39 AM CDT CTA Chest 01/15/2007History: Short of breathProcedure: A routine CT angiogram for pulmonary embolus was obtained with noncontrast images followedby thin cut images with 100ml of Optiray 350 IV contrast. Findings: 1. There is respiratory motion on some images. The pulmonary arteries are well opacified. There is nopulmonary embolus. 2. The lateral lingula has a 5 mm noncalcified nodule on thin-cut image 127. There is minimal linearatelectasis or scarring in the lingula. 3. There is a bleb in the anterior segment left upper lobe. 4. There is no pneumothorax, pleural fluid, or infiltrate. There is no pericardial fluid. The thoracicaorta is normal, without, aneurysm, or calcification. There is no mediastinal or axillarylymphadenopathy. There is no identified abnormality of the liver, spleen, or adrenals. 5. There has been previous thoracal lumbar surgery. T12 is anteriorly wedged. There are old left ribfractures and there is probably heterotopic bone formation or less likely developmental anomalywith a a small piece of bone extending from the anterolateral left third rib to the anterolateralleft fourth rib. Impression: No pulmonary embolus. 5 mm noncalcified nodule in the lingula with no previous scan ofavailable. A followup CT scan in 3 months is suggested. Bleb in the central left upper lobeanterior segment. Previous thoracolumbar surgery. Old left rib fractures. 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 - Dictated By: Mireya Waller M.D. Electronically Signed By: Mireya Waller M.D. Date Signed: 01/15/07 Procedure Note 03/21/2009 CTA Chest 01/15/2007History: Short of breathProcedure: A routine CT angiogram for pulmonary embolus was obtained with noncontrastimages followedby thin cut images with 100ml of Optiray 350 IV contrast. Findings: 1. There is respiratory motion on some images. The pulmonary arteries arewell opacified. There is nopulmonary embolus. 2. The lateral lingula has a 5 mm noncalcified nodule on thin-cut [id number]. There is minimal linearatelectasis or scarring in the lingula. 3. There is a bleb in the anterior segment left upper lobe. 4. There is no pneumothorax, pleural fluid, or infiltrate. There is nopericardial fluid. The thoracicaorta is normal, without, aneurysm, or calcification. There is nomediastinal or axillarylymphadenopathy. There is no identified abnormality of the liver,spleen, or adrenals. 5. There has been previous thoracal lumbar surgery. T12 is anteriorlywedged. There are old left ribfractures and there is probably heterotopic bone formation or lesslikely developmental anomalywith a a small piece of bone extending from the anterolateral left third rib tothe anterolateralleft fourth rib. Impression: No pulmonary embolus. 5 mm noncalcified nodule in the lingula with noprevious scan ofavailable. A followup CT scan in 3 months is suggested. Bleb in the central left upperlobeanterior segment. Previous thoracolumbar surgery. Old left rib fractures. Probable heterotopicboneformation extending from the lateral left third rib to the left fourth rib. - Dictated By: Mireya Waller M.D. Electronically Signed By: Mireya Waller M.D. Date Signed: 01/15/07 us Aleksander Cortes MD CT ORDERABLES Final Result documented in this encounter Visit Diagnoses Diagnosis Other dyspnea and respiratory abnormality- Primary documented in this encounter Care Teams Inside Solar Sales Consultant Relationship Specialty Start Date End Date Romario Galvan MD PCP - General Family Practice 05/19/11 documented as of this encounter
--- OUTSIDE RECORDS SUMMARY | 2024-10-23 12:02 | XMS_ITS | Encounter Summary ---
Author Organization [facility] Address [address] [place] [address] Care Team Providers Care Rehab Consultant Name Role Phone Romario Galvan MD Primary Care Provider + Encounter Details Date Type Department Care Team (Latest Contact Info) Description 11/04/1997 [facility] [address] [place] [address] Ubaldo Sharma MD [address] [phone] Other unspecified back disorder (Primary Dx) Social History Tobacco Use Types Packs/Day Years Used Date Smoking Tobacco: Never Assessed Sex and Gender Information Value Date Recorded Sex Assigned at Not on file 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
--- OUTSIDE RECORDS SUMMARY | 2024-10-23 12:02 | XMS_ITS | Encounter Summary ---
Author Organization [facility] Address [address] [facility] [place] [address] Care Team Providers Care Fish Farmer Name Role Phone Romario Galvan MD Primary Care Provider + Encounter Details Date Type Department Care Team (Latest Contact Info) Description 03/04/2002 Outpatient Historical [facility] Gurpreet Marie MD NO ADDRESS ON FILE POSTSURG AFTERCARE OTHER SPECIFIED (Primary Dx) Social History Tobacco Use Types Packs/Day Years Used Date Smoking Tobacco: Never Assessed Sex and Gender Information Value Date Recorded Sex Assigned at Not on file 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
--- OUTSIDE RECORDS SUMMARY | 2024-10-23 12:02 | XMS_ITS | Encounter Summary ---
Author Organization [facility] Address [address] [place] [address] Care Team Providers Care Electric Wheelchair Repairer Name Role Phone Romario Galvan MD Primary Care Provider + Encounter Details Date Type Department Care Team (Latest Contact Info) Description 01/28/1998 Outpatient Historical [facility]- [address]tr[address], 3[address] [place] [address] Calculus of ureter (Primary Dx) Social History Tobacco Use Types Packs/Day Years Used Date Smoking Tobacco: Never Assessed Sex and Gender Information Value Date Recorded Sex Assigned at Not on file 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
--- OUTSIDE RECORDS SUMMARY | 2024-10-23 12:02 | XMS_ITS | Clinical Summary ---
Author Organization [facility] Address [address] [place] [address] Care Team Providers Care Public Health Educator Name Role Phone Romario Galvan MD Primary Care Provider + Allergies No known active allergies Medications tiZANidine (ZANAFLEX) 4 mg TabletIndicatio ns:Knee strain, left, initial encounter,Muscl e strain of thigh, left, initial encounter,Myalg ia Take 0.25-2 Tablet (1-8 mg) by mouth every 8 hours as needed for Pain or Spasm. 30 Tablet 2 05/16/2016 Active gabapentin (NEURONTIN) 300 mg capsule Take 1 Capsule (300 mg) by mouth 3 times daily. 270 Capsule 6 01/30/2017 Active loratadine-pseu doephedrine (LORATADINE-D) 10-240 mg Extended Release 24 hour tablet Take 1 Tablet by mouth daily. 30 Tablet 3 2017 Active citalopram (CeleXA) 40 mg tablet Take 1 Tablet (40 mg) by mouth daily. 90 Tablet 1 10/01/2017 Active vardenafil (LEVITRA) 20 mg tablet Take 1 Tablet (20 mg) by mouth 1 time daily as needed (sexual activity).. 3 Tablet 11 10/01/2017 Active fluticasone (FLONASE) 50 mcg/spray [place], SuspensionIndic ations:Viral URI INSTILL TWO SPRAYS INTO EACH NOSTRIL ONCE DAILY 16 Gram 5 12/04/2017 Active Active Problems Problem Noted Date Diagnosed Date Old CO (myocardial infarction) 03/18/2017 Tobacco use 02/04/2015 Hyperlipidemia 05/24/2011 Immunizations Immunization Administration Dates Next Due INFLUENZA VACCINE QUADRIVALENT 3 YR UP PF IM Tetanus Vaccine IM 11/15/2011 Family History Medical History Relation Name Comments Heart Disease Father had 3v cabg Depression Other Relation Name Status Comments Father Other Social History Tobacco Use Types Packs/Day Years Used Date Smoking Tobacco: Every Day Cigarettes 0.5 30 Smokeless Tobacco: Never Tobacco Cessation:Ready to Q uit: No Alcohol Use Standard Drinks/Week Comments No 0 (1 standard drink = 0.6 oz pur e alcohol) Sex and Gender Information Value Date Recorded Sex Assigned at Not on file 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 Gender Identity Not on file Sexual Orientation Not on file Last Filed Vital Signs Vital Sign Reading Time Taken Comments Blood Pressure 136/74 02/21/2017 10:08 AM CDT Pulse 87 02/21/2017 10:08 AM CDT Temperature 36.7 C (98 F) 02/21/2017 10:08 AM CDT Respiratory Rate 20 02/21/2017 10:08 AM CDT Oxygen Saturation 96% 02/21/2017 10:08 AM CDT Inhaled Oxygen Concentration - - Weight 84.8 kg (187 lb) 02/21/2017 10:08 AM CDT Height 175.3 cm (5' 9 ) 02/21/2017 10:08 AM CDT Body Mass Index 27.62 02/21/2017 10:08 AM CDT Plan of Treatment Health Maintenance Due Date Last Done Comments DTAP/TDAP/TD VACCINES (1 - Tdap) 1974 PNEUMOCOCCAL VACCINE 50+ YEARS (1 of 2 - PCV) 03/13/19 74 COLORECTAL SCREENING 2000 Colorectal Cancer Screening 2000 FIT-DNA Q 3 years 2000 FIT/FOBT Q 1 year 2000 Flex Sig/CT Colonography Q 5 years 2000 ZOSTER VACCINE (1 of 2) 2005 INFLUENZA VACCINE (#1) 2023 02/21/2017 RSV VACCINE (60+ or ) (1 - 1-dose 75+ series) 2030 Insurance [facility] DUAL COMPLETE MCR PPO D-SNP Care Teams Public Health Educator Relationship Specialty Start Date End Date Romario Galvan MD PCP - General Family Practice 05/19/11
--- OUTSIDE RECORDS SUMMARY | 2024-10-23 12:02 | XMS_ITS | Encounter Summary ---
Author Organization [facility] Address [address] [place] [address] Care Team Providers Care Plunket Nurse Name Role Phone Romario Galvan MD Primary Care Provider + Encounter Details Date Type Department Care Team (Latest Contact Info) Description 11/25/1997 Outpatient [facility] [address] [place] [address] Ubaldo Sharma MD [address] [phone] Backache, unspecified (Primary Dx) Social History Tobacco Use Types Packs/Day Years Used Date Smoking Tobacco: Never Assessed Sex and Gender Information Value Date Recorded Sex Assigned at Not on file 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
--- OUTSIDE RECORDS SUMMARY | 2024-10-23 12:02 | XMS_ITS | Encounter Summary ---
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
--- OUTSIDE RECORDS SUMMARY | 2024-10-23 12:02 | XMS_ITS | Encounter Summary ---
Author Organization [facility] Address [address] [facility] [place] [address] Care Team Providers Care Recruiter Account Manager Name Role Phone Romario Galvan MD Primary Care Provider + Encounter Details Date Type Department Care Team (Latest Contact Info) Description 02/25/2002 Outpatient Historical [facility] [place] [facility] Gurpreet Marie MD NO ADDRESS ON FILE POSTSURG AFTERCARE OTHER SPECIFIED (Primary Dx) Social History Tobacco Use Types Packs/Day Years Used Date Smoking Tobacco: Never Assessed Sex and Gender Information Value Date Recorded Sex Assigned at Not on file 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
--- OUTSIDE RECORDS SUMMARY | 2024-10-23 12:02 | XMS_ITS | Encounter Summary ---
Author Organization [facility] Address [address] [place] [address] Care Team Providers Care Cover Stitch Machine Operator Name Role Phone Romario Galvan MD Primary Care Provider + Encounter Details Date Type Department Care Team (Late st Contact Info) Description 01/15/2008 Outpatient Historical [facility] [address] [address] [place] [address] Red Gomez MD [address] [place] [address] Tobacco Use Disorder Social History Tobacco Use Types Packs/Day Years Used Date Smoking Tobacco: Never Assessed Sex and Gender Information Value Date Recorded Sex Assigned at Not on file 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 Gender Identity Not on file Sexual Orientation Not on file documented as of this encounter Plan of Treatment Not on file documented as of this encounter Procedures Procedure Name Priority Date/Time Associated Diagnosis Comments FUNGUS CULTURE, OTHER Stat 01/21/2008 2:55 PM CDT FUNGUS CULTURE, OTHER Stat 01/21/2008 2:55 PM CDT ANAEROBIC CULTURE Stat 01/21/2008 2:5 5 PM CDT ANAEROBIC CULTURE Stat 01/21/2008 2:5 5 PM CDT AFB CULTURE Stat 01/21/2008 2:55 PM CDT AFB CULTURE Stat 01/21/2008 2:55 PM CDT TISSUE CULTURE Stat 01/21/2008 2:55 PM CDT TISSUE CULTURE Stat 01/21/2008 2:55 PM CDT PATHOLOGY Routine 01/21/2008 2:26 PM CDT documented in this encounter Results * AFB CULTURE (01/21/2008 2:55 PM CDT) FINAL REPORT No AFB isolated INTERFACE SYSTEM AFB STAIN Acid fast smear: No acid fast bacilli observed INTERFACE SYSTEM 01/21/2008 2:55 PM CDT 01/21/2008 2:59 PM CDT Result [facility] [place] Red Gomez MD MICROBIOLOGY - GENERAL ORDERABLE S Final Result Performing Organization Address [facility] Phone Number INTERFACE SYSTEM Refer to clinic/hospital department * FUNGUS CULTURE, OTHER (01/21/2008 2:55 PM CDT) FINAL REPORT No fungus isolated INTERFACE SYSTEM 01/21/2008 2:55 PM CDT 01/21/2008 2:59 PM CDT Result [facility] [place] Red Gomez MD MICROBIOLOGY - GENERAL ORDERABLE S Final Result Performing Organization Address [facility] Phone Number INTERFACE SYSTEM Refer to clinic/hospital department * ANAEROBIC CULTURE (01/21/2008 2:55 PM CDT) FINAL REPORT No growth anaerobically INTERFACE SYSTEM 01/21/2008 2:55 PM CDT 01/21/2008 2:59 PM CDT us Red Gomez MD MICROBIOLOGY - GENERAL ORDERABLE S Final Result Performing Organization Address [facility] [place] de Phone Number INTERFACE SYSTEM Refer to clinic/hospital department * TISSUE CULTURE (01/21/2008 2:55 PM CDT) GRAM STAIN No organisms observed Occasional (0-1/oil hpf) PMN WBC's observed INTERFACE SYSTEM FINAL REPORT No growth INTERFA CE SYSTEM 01/21/2008 2:55 PM CDT 01/21/2008 2:59 PM CDT Red Gomez MD MICROBIOLOGY - GENERAL ORDERABLE S Final Result Performing Organization Address [facility] Phone Number INTERFACE SYSTEM Refer to clinic/hospital department * AFB CULTURE (01/21/2008 2:55 PM CDT) AFB STAIN Acid fast smear: No acid fast bacilli observed INTERFACE SYSTEM FINAL REPORT No AFB isolated INTERFACE SYSTEM ENTIRE BONE ORGAN / Unknown 01/21/2008 2:55 PM CDT 01/21/2008 2:55 PM CDT Red Gomez MD MICROBIOLOGY - GENERAL ORDERABLE S Final Result Performing Organization Address [facility] Phone Number INTERFACE SYSTEM Refer to clinic/hospital department * FUNGUS CULTURE, OTHER (01/21/2008 2:55 PM CDT) FINAL REPORT No fungus isolated INTERFACE SYSTEM ENTIRE BONE ORGAN / Unknown 01/21/2008 2:55 PM CDT 01/21/2008 2:55 PM CDT Red Gomez MD MICROBIOLOGY - GENERAL ORDERABLE S Final Result Performing Organization Address [facility] Phone Number INTERFACE SYSTEM Refer to clinic/hospital department * ANAEROBIC CULTURE (01/21/2008 2:55 PM CDT) FINAL REPORT No growth anaerobically INTERFACE SYSTEM ENTIRE BONE ORGAN / Unknown 01/21/2008 2:55 PM CDT 01/21/2008 2:56 PM CDT Red Gomez MD MICROBIOLOGY - GENERAL ORDERABLE S Final Result Performing Organization Address [facility] Phone Number INTERFACE SYSTEM Refer to clinic/hospital department * TISSUE CULTURE (01/21/2008 2:55 PM CDT) FINAL REPORT No growth INTERFA CE SYSTEM GRAM STAIN No organisms observed Occasional (0-1/oil hpf) PMN WBC's observed INTERFACE SYSTEM ENTIRE BONE ORGAN / Unknown 01/21/2008 2:55 PM CDT 01/21/2008 2:55 PM CDT Red Gomez MD MICROBIOLOGY - GENERAL ORDERABLE S Final Result INTERFACE SYSTEM Refer to clinic/hospital department * PATHOLOGY (01/21/2008 2:26 PM CDT) PATHOLOGY/CYT OLOGY REPORT [facility] [id number] Patient: CRISSY HOLM Accn No: [id number] Collected: 01/21/2008 2:26:00 PM SURGICAL PATHOLOGY FINAL REPORT Diagnosis A. Bone, left third metacarpal, biopsy - fragment of new bone formation - no significant acute inflammation identified - please correlate with cultures. / B. Soft tissue, left third metacarpal, biopsy - acute fibropurulent exudate - please correlate with cultures. Adenike Saenz M.D. (Electronically signed by) Verified: 01/23/08 CLAUDIO/PORSCHE Clinical Information Probable osteomyelitis. Specimen Source ABone, LEFT THIRD METACARPAL BSoft Tissue, LEFT THIRD METACARPAL Microscopic Description Microscopic examination was performed. Gross Description Part A. Received fresh in a container labelled Mihai - left 3rd metacarpal bone biopsy for routine, anaerobic, gram stain, AFB and fungus is a contreras soft tissue fragment measuring 0.2 x 0.1 x 0.1 cm. The specimen is submitted entirely in A1 following light decalcification. Part B. Received fresh in a container labelled Mihai - soft tissue over left 3rd metacarpal for routine, anaerobic, gram stain, fungus, AFB is an aggregate of pinkish-contreras soft tissue measuring 0.3 x 0.2 x 0.1 cm. The specimen is submitted entirely in B1. NOTE: The specimens were previously sent to Microbiology for cultures. DLS/WLS INTERFACE SYSTEM 01/21/2008 2:26 PM CDT Red Gomez MD PATHOLOGY/CYTOLOGY ORDERABLES Fi nal Result INTERFACE SYSTEM Refer to clinic/hospital department documented in this encounter Visit Diagnoses Diagnosis Tobacco use disorder documented in this encounter Care Teams Cover Stitch Machine Operator Relationship Specialty Start Date End Date Romario Galvan MD PCP - General Family Practice 05/19/11 documented as of this encounter
--- OUTSIDE RECORDS SUMMARY | 2024-10-23 12:02 | XMS_ITS | Encounter Summary ---
Author Organization [facility] Address [address] [place] [facility] [place] [address] Care Team Providers Care Managing Partner Name Role Phone Romario Galvan MD Primary Care Provider + Encounter Details Date Type Department Care Team (Latest Contact Info) Description 01/28/2002 Outpatient Historical [facility] Gurpreet Marie MD NO ADDRESS ON FILE OPEN WOUND EX EAR NOS-COMPL (Primary Dx) Social History Tobacco Use Types Packs/Day Years Used Date Smoking Tobacco: Never Assessed Sex and Gender Information Value Date Recorded Sex Assigned at Not on file 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
--- OUTSIDE RECORDS SUMMARY | 2024-10-23 12:02 | XMS_ITS | Encounter Summary ---
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
--- OUTSIDE RECORDS SUMMARY | 2024-10-23 12:02 | XMS_ITS | Encounter Summary ---
Author Organization [facility] Address [address] [facility] [place] [address] Care Team Providers Care Bit Sharpener Name Role Phone Romario Galvan MD Primary Care Provider + Encounter Details Date Type Department Care Team (Latest Contact Info) Description 02/03/2002 Outpatient Historical [facility] Gurpreet Marie MD NO ADDRESS ON FILE OPEN WOUND EX EAR NOS-COMPL (Primary Dx) Social History Tobacco Use Types Packs/Day Years Used Date Smoking Tobacco: Never Assessed Sex and Gender Information Value Date Recorded Sex Assigned at Not on file 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
--- OUTSIDE RECORDS SUMMARY | 2024-10-23 12:02 | XMS_ITS | Encounter Summary ---
Author Organization [facility] Address [address] [facility] [place] [address] Care Team Providers Care Sanitary Plumber Name Role Phone Romario Galvan MD Primary Care Provider + Encounter Details Date Type Department Care Team (Latest Contact Info) Description 02/18/2002 Outpatient Historical [facility] Gurpreet Marie MD NO ADDRESS ON FILE POSTSURG AFTERCARE OTHER SPECIFIED (Primary Dx) Social History Tobacco Use Types Packs/Day Years Used Date Smoking Tobacco: Never Assessed Sex and Gender Information Value Date Recorded Sex Assigned at Not on file Legal Sex Male 5:30 AM DOBIE MAN Gender Identity Not on file Sexual Orientation Not on file documented as of this encounter Plan of Treatment Not on file documented as of this encounter Visit Diagnoses Diagnosis Other specified aftercare following surgery- Primary documented in this encounter Care Teams Sanitary Plumber Relationship Specialty Start Date End Date Romario Galvan MD PCP - General Family Practice 05/19/11 documented as of this encounter
--- OUTSIDE RECORDS SUMMARY | 2024-10-23 12:02 | XMS_ITS | Encounter Summary ---
Author Organization [facility] Address [address] [place] [address] Care Team Providers Care Molding Process Technician Name Role Phone Romario Galvan MD Primary Care Provider + Encounter Details Date Type Department Care Team (Latest Contact Info) Description 02/02/2004 Outpatient Historical [facility] Gurdeep [address] [place] [address] Herber Meza MD [address] [place] [phone] INFEC OTITIS EXTERNA NOS (Primary Dx) Social History Tobacco Use Types Packs/Day Years Used Date Smoking Tobacco: Never Assessed Sex and Gender Information Value Date Recorded Sex Assigned at Not on file 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
[2024-10-23 12:08] VITALS: BP 165/97; PULSE 65; RESP 16; O2SAT 94
[2024-10-23 12:11] LABS: Basophils # 0.1 10^3/uL (0.0-0.1); Basophils % 0.7 %; Eosinophils # 0.2 10^3/uL (0.0-0.8); Eosinophils % 1.8 %; Hematocrit 48.6 % (37-53); Lymphocytes # 1.7 10^3/uL (0.8-4.8); Lymphocytes % 13.8 %; Mean Corpuscular HGB Conc 32.7 g/dL (30-55); Mean Corpuscular Hemoglobin 28.3 pg (27-33); Mean Corpuscular Volume 86.6 fl (82-101); Mean Platelet Volume 9.9 fL (7.4-10.4); Monocytes # 1.1 10^3/uL (0.2-0.9); Monocytes % 8.8 %; Neutrophils # 9.04 10^3/uL (1.8-7.7); Neutrophils % 73.8 %; Nucleated Red Blood Cells % 0 %; Platelet Count 302 10^3/cmm (157-399); Red Blood Count 5.61 10^6/uL (3.85-5.65); Red Cell Distribution Width 14.8 % (12.1-15.1); White Blood Count 12.24 10^3/uL (3.29-11.43)
[2024-10-23 12:22] LABS: Troponin(5th) Baseline 23 ng/L (0-15)
[2024-10-23 12:23] LABS: Alanine Aminotransferase 12 U/L (0-41); Albumin Level 3.5 g/dL (3.5-5.2); Alkaline Phosphatase 99 U/L (40-130); Aspartate Amino Transferase 14 U/L (0-40); Blood Urea Nitrogen 39 mg/dL (8-23); Calcium 10.4 mg/dL (8.5-10.5); Carbon Dioxide 21 mmol/L (22-29); Chloride 103 mmol/L (98-107); Creatinine Clr Calc Pharmacy 36.1234; Glomerular Filtration Rate 33.3 mL/min (90-130); Glucose 100 mg/dL (65-115); Osmolality Calculated 297 mOsm/kg (285-295); Sodium 139 mmol/L (136-145); Total Bilirubin 0.2 mg/dL (0.15-1.2); Total Protein 6.5 g/dL (6.6-8.7)
[2024-10-23 12:26] LABS: Anion Gap 20.2 (5-19); Potassium 5.2 mmol/L (3.5-5.1)
[2024-10-23 12:30] VITALS: BP 171/81; PULSE 66; RESP 16; O2SAT 95
[2024-10-23 12:45] VITALS: BP 171/81; PULSE 64; RESP 16; O2SAT 93
== END 2024-10-23 12:45 | disposition home or self-care (01) ==
PROVIDERS: Emergency Provider Emergency Medicine; PCP Family Medicine
DX: I10 Essential (primary) hypertension (principal); Z79.01 Long term (current) use of anticoagulants; Z87.891 Personal history of nicotine dependence
CPT/HCPCS: 80053; 84484; 85025; 93005; 99285